=== PATIENT | male | born 1975 | race Caucasian/White ===

== ENCOUNTER 2020-01-03 13:33 | Outpatient (REF) | payer MEDICARE, MEDICAID, SELFPAY ==
[2020-01-03 14:43] LABS: Alanine Aminotransferase 18 U/L (0-40); Albumin Level 4.1 g/dL (3.5-5.0); Alkaline Phosphatase 85 U/L (39-117); Aspartate Amino Transferase 19 U/L (5-37); Bilirubin Direct 0.3 mg/dL (0.0-0.5); Bilirubin Total 0.6 mg/dL (0.0-1.0); Total Protein 7.5 g/dL (6.5-8.0)
[2020-01-04 11:20] LABS: Hepatitis A Antibody IgG Nonreactive (Nonreactive); Hepatitis A Antibody IgM 0.31 Index (0-0.79); ~Hepatitis A Antibody IgG 0.69 S/CO (0.00-0.99); ~Hepatitis A Antibody IgM Nonreactive (Nonreactive)
[2020-01-04 11:30] LABS: HBS Num1 0.93 mIU/mL (0-7.99); HBc Num1 0.12 S/CO (0.00-0.79); HBsAGNum1 0.14 S/CO (0.00-0.99); HIV AB/AG Nonreactive (Nonreactive); HIV Num 1 0.05 S/CO (0.00-0.99); Hepatitis B Core Antibody Nonreactive (Nonreactive); Hepatitis B Surface Antigen Negative (Negative); ~Hepatitis B Surface Antibody NONREACTIVE (Nonreactive)
[2020-01-04 11:37] LABS: ~HepC Num1 0.15 S/CO (0.00-0.79); ~Hepatitis C Antibody Nonreactive (Nonreactive)
== END 2020-01-03 13:34 | disposition home or self-care (01) ==
LOC: HO.LAB 13:33
PROVIDERS: PCP Internal Medicine; Visit Provider Nurse Practitioner Psychiatric/Mental Health
DX: F11.20 Opioid dependence, uncomplicated (principal); Z01.84 Encounter for antibody response examination
CPT/HCPCS: 36415; 80076; 86481; 86704; 86706; 86708; 86709; 86803; 87340; 87389; 99213

== ENCOUNTER → 2020-01-10 13:09 | Outpatient (BNVA) | payer MEDICARE, MEDICAID, SELFPAY | PROVIDERS: PCP Internal Medicine; Referring Provider Internal Medicine; Visit Provider Nurse Practitioner Psychiatric/Mental Health | DX: F11.20 Opioid dependence, uncomplicated (principal); Z51.81 Encounter for therapeutic drug level monitoring | CPT/HCPCS: 80305; 99213 ==

== ENCOUNTER 2020-01-19 18:51 | Emergency (ER) | payer MEDICARE, MEDICAID, SELFPAY ==
[2020-01-19 19:01] VITALS: BP 121/88; PULSE 78; RESP 20; TEMP 36.9; O2SAT 97
[2020-01-19 19:07] VITALS: BP 120/84; BP 121/88; PULSE 75; PULSE 84; RESP 20; TEMP 36.9; O2SAT 97; O2SAT 98; BMI 21.7
--- NOTE | 2020-01-19 19:32 | CT_ITS ---
EXAMINATION: CT HEAD WITHOUT CONTRAST CT CERVICAL SPINE WITHOUT CONTRAST CLINICAL INFORMATION: EtOH. Fall. Head trauma. COMPARISON: CT head 04/19/2017. Brain MRI of 04/19/2017. Cervical spine x-rays of 09/22/2015. TECHNIQUE: Multidetector volumetric CT imaging of the head and cervical spine is acquired without intravenous contrast administration. Postprocessing is performed at a dedicated workstation. Multiplanar reformatted images are submitted. As per technologist's notes patient was unable to hold still. This CT scan was performed using dose optimization techniques as appropriate to a performed exam including the following: *Automated exposure control. *Adjustment of mA and/or kV according to patient size (this includes techniques or standardized protocols for targeted exams were dose is matched to indication/reason for exam; i.e. extremities or head). *Use of iterative reconstruction technique . DLP: 941 mGy-cm (CT head), 247 mGy-cm (CT cervical spine). FINDINGS: CT HEAD: Multiple images are degraded by artifacts limiting the evaluation in the region. There is no evidence of acute intracranial hemorrhage, midline shift or mass effect on the non-degraded images. No evidence of abnormal extra-axial fluid collection. Ventricles and cortical sulci are age-appropriate. No definite abnormal parenchymal attenuation is noted. The osseous calvarium appears intact. Visualized paranasal sinuses and mastoid air cells are well aerated. CERVICAL SPINE: The vertebral body heights and alignment are maintained. Atlantoaxial and atlantooccipital alignments are normal. The posterior elements are intact and in normal alignment. There is moderate disc space narrowing at C5-C6 and C6-C7 with small marginal endplate osteophytes. No evidence of prevertebral soft tissue swelling. Airways patent. Thyroid gland is unremarkable. Mild changes of centrilobular and paraseptal emphysema are noted in the lung apices. IMPRESSION: CT HEAD: Multiple images are degraded by significant motion artifacts. There is no evidence of acute intracranial abnormality on the images without motion artifacts. As clinically deemed necessary, repeat head CT may be considered once patient is able to cooperate. CT CERVICAL SPINE: No evidence of acute fracture or dislocation. Mild cervical spondylosis at C5-C6 and C6-C7, increased compared to previous x-ray of 2016.
[2020-01-19 20:00] VITALS: RESP 15; O2SAT 95
--- NOTE | 2020-01-19 21:00 | ED_ITS ---
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 Denies other drug use. Reports unaware if he fell, but appears that he did. Denies SI/HI. Denies headache, neck pain, back pain, CP/SOB, abdominal pain, nausea /vomiting <FABIAN Fall Last Filed: 01/20/20 00:39> MD complaint: alcohol intoxication, alcohol dependence and medical clearance for detox facility <FABIAN Fall Last Filed: 01/20/20 00:39> Related Data Home Medications: Home Medications Medication Instructions Recorded Confirmed dextroamphetamine-amphetamine 20 20 mg PO BID 12/29/19 01/19/20 mg tablet gabapentin 600 mg tablet 600 mg PO TID 12/29/19 01/19/20 venlafaxine 150 mg 150 mg PO DAILY 12/29/19 01/19/20 capsule,extended release 24 hr Previous Rx's Medication Instructions Recorded buprenorphine 4 mg-naloxone 1 mg 2 film SUBLINGUAL DAILY #12 ea 01/10/20 sublingual film <FABIAN Fall Last Filed: 01/20/20 00:39> Allergies/Adverse Reactions: Allergies Allergy/AdvReac Type Severity Reaction Status Date / Time No Known Allergies Allergy Verified 01/10/20 13:53 <FABIAN Fall Last Filed: 01/20/20 00:39> Review of Systems Review of Systems: Constitutional: No Fever, No Chills, Cardiovascular: No Chest Pain, No SOB Respiratory: No Cough Gastrointestinal: No Nausea, No Vomiting, No Diarrhea, No Abdominal pain Musculoskeletal: No joint pain, No Myalgias, No Joint Swelling Skin: + forehead abrasion Psych: No SI/HI <FABIAN Fall - Last Filed: 01/20/20 00:39> [facility], [facility] Past Medical History Attestation statement: The following information was validated with the patient. <FABIAN Fall - Last Filed: 01/20/20 00:39> Source: old records reviewed and nursing notes reviewed <FABIAN Fall - Last Filed: 01/20/20 00:39> Medical History: Medical History (Updated 01/19/20 @ 23:25 by FABIAN Fall) Diabetes Multiple sclerosis <FABIAN Fall - Last Filed: 01/20/20 00:39> Social History Social History: Social History Smoking Status: Unknown if ever smoked Use of substances other than those prescribed or required for medical reasons: Yes Substance Use Type: Unknown Substance Use Frequency: Occasionally Advance Directives: No Advance Directives Information Provided: Yes <FABIAN Fall - Last Filed: 01/20/20 00:39> Physical Exam Vital Signs: Vital Signs: Vital Signs Temp Pulse Resp BP Pulse Ox 01/20/20 03:11 98.0 F 74 18 102/65 01/20/20 02:15 98.6 F 60 15 120/62 96 01/20/20 00:00 15 01/19/20 22:00 14 01/19/20 20:00 15 95 01/19/20 19:07 98.5 F 75 20 121/88 97 01/19/20 19:01 98.5 F 78 20 121/88 97 Body Mass Index 21.7 <FABIAN Fall - Last Filed: 01/20/20 00:39> Vital Signs: Vital Signs Temp Pulse Resp BP Pulse Ox 01/20/20 03:11 98.0 F 74 18 102/65 01/20/20 02:15 98.6 F 60 15 120/62 96 01/20/20 00:00 15 01/19/20 22:00 14 01/19/20 20:00 15 95 01/19/20 19:07 98.5 F 75 20 121/88 97 01/19/20 19:01 98.5 F 78 20 121/88 97 Body Mass Index 21.7 <Halima Castano MD - Last Filed: 01/20/20 03:16> Const: Other: ETOH odor on breath, alert to voice <FABIAN Fall - Last Filed: 01/20/20 00:39> HENMT: Other: abrasion noted to left forehead <FABIAN Fall - Last Filed: 01/20/20 00:39> Ears: hearing grossly normal bilaterally <FABIAN Fall - Last Filed: 01/20/20 00:39> General nose exam: Normal external nose present <Antonietta Gupta SC - Last Filed: 01/20/20 00:39> Face and sinus: No crepitus <FABIAN Fall - Last Filed: 01/20/20 00:39> Mouth: Normal oral and palatal mucosa present <FABIAN Fall - Last Filed: 01/20/20 00:39> Throat: Yes uvula midline <FABIAN Fall - Last Filed: 01/20/20 00:39> Eyes: General: appearance normal, both eyes and all related structures <FABIAN Fall - Last Filed: 01/20/20 00:39> Pupils: Equal, round and reactive pupils present <FABIAN Fall - Last Filed: 01/20/20 00:39> EOM: EOMs intact bilaterally <FABIAN Fall - Last Filed: 01/20/20 00:39> Neck: Other: no midline cervical spinous tenderness <FABIAN Fall - Last Filed: 01/20/20 00:39> Neck: Yes normal visual inspection <FABIAN Fall - Last Filed: 01/20/20 00:39> Resp: Effort & Inspection: normal respiratory effort <FABIAN Fall - Last Filed: 01/20/20 00:39> Cardio: Rate: regular rate <FABIAN Fall - Last Filed: 01/20/20 00:39> GI: Inspection: Yes normal to inspection <FABIAN Fall - Last Filed: 01/20/20 00:39> Palpation (GI): Soft to palpation, nontender, no guarding and not rigid <FABIAN Fall - Last Filed: 01/20/20 00:39> Back/Spine/Pelvis: Other: CHAUDHARI <FABIAN Fall - Last Filed: 01/20/20 00:39> Neuro: General: tone normal and moves all extremities <FABIAN Fall Last Filed: 01/20/20 00:39> Cranial nerves: Yes Equal, round and reactive pupils present <FABIAN Fall Last Filed: 01/20/20 00:39> Gait exam (Neuro): Normal gait present <FABIAN Fall Last Filed: 01/20/20 00:39> Extrem: General: Yes normal to inspection <FABIAN Fall Last Filed: 01/20/20 00:39> Course Course Course Narrative: -2324-- head CT without evidence of acute intracranial abnormality on the images without motion artifact. CT C-spine without evidence of acute fracture or dislocation patient has been sleeping comfortably in the ED. Cooperative. Alert to voice -0200-- ED care transferred to Dr. 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 On exam VSS, intoxicated, CHAUDHARI, abrasion noted to left forehead. Concern for ICH/subdural vs fracture. No evidence of alcohol withdrawal at this time Plan: Head/ C-spine CT, observe and reassess for clinical sobriety <FABIAN Fall Last Filed: 01/20/20 00:39> Discharge Plan Discharge Clinical Impression: Fall Alcohol intoxication Qualifiers: Complication of substance-induced condition: uncomplicated Qualified Code(s): F 10.920 - Alcohol use, unspecified with intoxication, uncomplicated <FABIAN Fall Last Filed: 01/20/20 00:39> Patient Disposition: Home, Self-Care <FABIAN Fall Last Filed: 01/20/20 00:39> Instructions: Abuse of Alcohol (ED) <FABIAN Fall Last Filed: 01/20/20 00:39> Additional Instructions: do not drink alcohol or take drugs it can not kill you follow-up with your doctor Stay hydrated at home If you have headache, persistent nausea / vomiting, or weakness return to the ED <FABIAN Fall - Last Filed: 01/20/20 00:39> Prescriptions: No Action buprenorphine-naloxone [Suboxone] 4-1 mg film 2 film sublingual DAILY Qty: 12 RF: 0 venlafaxine [Effexor XR] 150 mg capsule,extended release 24hr 150 mg PO DAILY RF: 0 gabapentin 600 mg tablet 600 mg PO TID RF: 0 dextroamphetamine-amphetamine [Adderall] 20 mg tablet 20 mg PO BID RF: 0 <FABIAN Fall - Last Filed: 01/20/20 00:39> Referrals: Physician,Unknown [Primary Care Provider] - 2 days ( your primary care doctor) <FABIAN Fall - Last Filed: 01/20/20 00:39>
[2020-01-19 22:00] VITALS: RESP 14
[2020-01-20] VITALS: RESP 15
[2020-01-20 02:15] VITALS: BP 120/62; PULSE 60; RESP 15; TEMP 37; O2SAT 96
[2020-01-20 03:11] VITALS: BP 102/65; PULSE 74; RESP 18; TEMP 36.7
== END 2020-01-20 03:37 | disposition home or self-care (01) ==
PROVIDERS: Emergency Provider Emergency Medicine
DX: F10.120 Alcohol abuse with intoxication, uncomplicated (principal); Y90.9 Presence of alcohol in blood, level not specified; S00.81XA Abrasion of other part of head, initial encounter; W19.XXXA Unspecified fall, initial encounter; E11.9 Type 2 diabetes mellitus without complications; G35 Multiple sclerosis; Y93.9 Activity, unspecified; Y92.9 Unspecified place or not applicable; Y99.9 Unspecified external cause status; Z79.899 Other long term (current) drug therapy
CPT/HCPCS: 70450; 72125; 99284

== ENCOUNTER → 2020-01-21 13:32 | Outpatient (BNVA) | payer MEDICARE, MEDICAID, SELFPAY | PROVIDERS: Visit Provider Nurse Practitioner Psychiatric/Mental Health | DX: F11.99 Opioid use, unspecified with unspecified opioid-induced disorder (principal); Z79.899 Other long term (current) drug therapy | CPT/HCPCS: 80305; 99211 ==

== ENCOUNTER → 2020-01-29 09:57 | Outpatient (BNVA) | payer MEDICARE, MEDICAID, SELFPAY | PROVIDERS: PCP Internal Medicine; Visit Provider Internal Medicine | DX: F11.20 Opioid dependence, uncomplicated (principal) | CPT/HCPCS: 80305; 99212 ==

== ENCOUNTER 2020-02-14 13:01 | Outpatient (REF) | payer MEDICARE, MEDICAID, SELFPAY ==
[2020-02-18 19:11] LABS: Buprenorphine 7 ng/mL; Norbuprenorphine 45 ng/mL
== END 2020-02-14 13:02 | disposition home or self-care (01) ==
LOC: HO.LNP 13:01
PROVIDERS: Visit Provider Internal Medicine
DX: F11.20 Opioid dependence, uncomplicated (principal)
CPT/HCPCS: 80305; 80348; 99212

== ENCOUNTER → 2020-02-18 15:05 | Outpatient (BNVA) | payer MEDICARE, MEDICAID, SELFPAY | PROVIDERS: Visit Provider Nurse Practitioner Psychiatric/Mental Health | DX: F11.20 Opioid dependence, uncomplicated (principal) | CPT/HCPCS: 80305; 99212 ==

== ENCOUNTER 2020-03-03 15:16 | Outpatient (REF) | payer MEDICARE, MEDICAID, SELFPAY ==
[2020-03-06 16:42] LABS: Buprenorphine 160 ng/mL; Norbuprenorphine >1000 ng/mL
== END 2020-03-03 15:17 | disposition home or self-care (01) ==
LOC: HO.LNP 15:16
PROVIDERS: Visit Provider Internal Medicine
DX: F11.99 Opioid use, unspecified with unspecified opioid-induced disorder (principal)
CPT/HCPCS: 80305; 80348; 99211

== ENCOUNTER → 2020-03-17 14:49 | Outpatient (BNVA) | payer MEDICARE, MEDICAID, SELFPAY | PROVIDERS: Visit Provider Internal Medicine | DX: Z13.89 Encounter for screening for other disorder (principal) | CPT/HCPCS: Q3014 ==

== ENCOUNTER 2020-03-30 13:18 | Emergency (ER) | payer MEDICARE, MEDICAID, SELFPAY ==
[2020-03-30 13:29] VITALS: BP 122/82; PULSE 86; RESP 16; TEMP 37; O2SAT 98; BMI 19.1
--- NOTE | 2020-03-30 13:42 | ED.PSYCH ---
HPI - Psych General Chief Complaint: Psychiatric Symptoms Stated Complaint: section 12 Time Seen by Provider: 03/30/20 13:36 Source: patient and EMS Mode of arrival: EMS Limitations: no limitations and altered mental status (intoxicated) History of Present Illness HPI Narrative: 44 y/o male with history of diabetes, MS, opioid use disorder on Suboxone who presents via EMS after he called 911 for seeing demons in my house. He states he was drinking beer and smoking marijuana with his roommates and all of the sudden he saw a big black bird head with a lot of black feathers flying around behind his friends. He freaked out and called 911. Denies history of hallucinations in the past, denies other drug use today. Has been taking his medications as prescribed. Related Data Home Medications Medication Instructions Recorded Confirmed dextroamphetamine-amphetamine 20 20 mg PO BID 12/29/19 03/03/20 mg tablet gabapentin 600 mg tablet 600 mg PO TID 12/29/19 03/03/20 venlafaxine 150 mg 150 mg PO DAILY 12/29/19 03/03/20 capsule,extended release 24 hr Previous Rx's Medication Instructions Recorded hepatitis A virus vaccine (PF) 1 ml IM ONCE #1 ml 01/29/20 1,440 FRANKLIN unit/mL IM suspension hepatitis B virus vacc.rec(PF) 20 1 ml IM ONCE 30 Days #1 ml 01/29/20 mcg/mL intramuscular syringe buprenorphine 4 mg-naloxone 1 mg 2 film SUBLINGUAL DAILY 14 Days 03/17/20 sublingual film #28 ea Allergies Allergy/AdvReac Type Severity Reaction Status Date / Time No Known Allergies Allergy Verified 01/10/20 13:53 Review of Systems Review of Systems: Yes Unobtainable due to mental condition (intoxicated, speaking non-sensically ) [facility] Past Medical History Attestation statement: The following information was validated with the patient. Medical History Diabetes Multiple sclerosis Opioid use disorder Social History Social History Alcohol intake: current Alcohol intake frequency: 3 or more drinks per day Alcohol type: beer Smoking Status: Current every day smoker Use of substances other than those prescribed or required for medical reasons: No Substance Use Type: Marijuana Advance Directives: No Advance Directives Information Provided: No Physical Exam Vital Signs: Vital Signs: Last Vital Signs Temp 98.6 F 03/30/20 13:29 Pulse 86 03/30/20 13:29 Resp 20 03/30/20 14:56 BP 122/82 03/30/20 13:29 Pulse Ox 98 03/30/20 13:29 Body Mass Index 19.1 Appearance: Alert. Restless, anxious Oriented X3. Talking to himself in bed. Eyes: Pupils equal, round and reactive to light. ENT: Pharynx normal. Dry mucus membranes Neck: Normal inspection. Neck supple. CVS: Normal heart rate and rhythm. Pulses normal. Respiratory: No respiratory distress. Breath sounds normal. Abdomen: Soft and nontender. +BS x4 Skin: Skin warm and dry. Normal skin color. Normal skin turgor. No rashes. Extremities: No lower extremity edema. Neuro/psych: Oriented X 3. Moves all extremities spontaneously, follows commands, speaking quickly, non-sensically, flight of ideas and loose assocaitions Course Course Course Narrative: 44 y/o male with history of anxiety/depression, MS, DM and opiod use disorder presenting after seeing demons in his house. Visibly anxious and intoxicated. Lab workup and utox ordered. Patient is redirectable. Reevaluation(s) Reevaluation #1: ETOH level 214 Tox screen + THC and amphetamines (prescribed). Other labs are unremarkable aside from baseline anemia and mild isolated elevation in AST. continues to talk to himself in bed. Awaiting [facility] evaluation. MDM - Psych Medical Records Attestation: I reviewed the patient's medical records. Lab Data Result diagrams: 03/30/20 14:51 03/30/20 14:50 Labs: Lab Results 03/30/20 03/30/20 03/30/20 Range/Units 14:50 14:51 14:51 WBC 6.9 (4.8-10.8) X10*3/uL RBC 4.03 L (4.60-5.80) X10*6/uL Hgb 13.1 L (14.0-18.0) g/dl Hct 39.5 L (42-52) % MCV 98.0 (80-98) fL MCH 32.5 (27.0-33.0) pg MCHC 33.2 (31.0-36.0) g/dl RDW 12.5 (11.0-16.0) % Plt Count 240 (160-400) X10*3/uL MPV 11.2 (9.4-12.4) fL Immature Gran % (Auto) 0.1 (0.0-0.4) % Neut % (Auto) 64.3 (45-73) % Lymph % (Auto) 23.3 (20-40) % [place] % (Auto) 6.5 (2-11) % Eos % (Auto) 5.4 H (0-4) % Baso % (Auto) 0.4 (0-2) % Lymph # (Auto) 1.6 (1.2-4.9) X10*3/uL [place] # (Auto) 0.5 (0.1-1.2) X10*3/uL Eos # (Auto) 0.4 (0.0-0.4) X10*3/uL Baso # (Auto) 0.0 (0.0-0.2) X10*3/uL Abs Immat Gran (auto) 0.01 (0.00-0.03) X10*3/uL Absolute Neuts (auto) 4.4 (2.0-8.3) X10*3/uL Absolute Nucleated RBC 0.000 (0.0-0.012) X10*3/uL Nucleated RBC % (auto) 0.0 (0.0-0.2) /100WBC Sodium 144 (135-145) mmol/L Potassium 4.4 (3.3-5.1) mmol/l Chloride 110 H (96-108) mmol/L Carbon Dioxide 26 (22-29) mmol/L Anion Gap 12 (12-20) BUN 14 (9-16) mg/dL Creatinine 0.85 (0.5-1.4) mg/dL Estim Creat Clear Calc 83.2 Estimated GFR > 60 Random Glucose 95 (60-115) mg/dL Calcium 9.2 (8.4-10.2) mg/dL Total Bilirubin 0.4 (0.0-1.0) mg/dL Direct Bilirubin 0.2 (0.0-0.5) mg/dL AST 39 H D (5-37) U/L ALT 32 (0-40) U/L Alkaline Phosphatase 75 (39-117) U/L Total Protein 7.6 (6.5-8.0) g/dL Albumin 4.2 (3.5-5.0) g/dL Urine Color Urine Appearance Urine pH (5.0-8.0) Ur Specific [place] (1.005-1.025) Urine Protein (NEG-TRACE) MG/DL Urine Glucose (UA) (NEG) MG/DL Urine Ketones (NEG) MG/DL Urine Blood (NEG) Urine Nitrite (NEG) Ur Leukocyte Esterase (NEG) Urine RBC (0) /HPF Urine WBC (0-4) /HPF Ur Squamous Epith Cells /LPF Urine Bacteria /LPF Salicylates < 5.0 L (15-30) mg/dL Urine Opiates Screen (Not Detect) Acetaminophen < 1 (<30) mcg/mL Ur Barbiturates Screen (Not Detect) Ur Phencyclidine Scrn (Not Detect) Ur Amphetamines Screen (Not Detect) U Benzodiazepines Scrn (Not Detect) Urine Cocaine Screen (Not Detect) U Marijuana (THC) Screen (Not Detect) Ethyl Alcohol 214 mg/dL 03/30/20 03/30/20 Range/Units 15:42 15:42 WBC (4.8-10.8) X10*3/uL RBC (4.60-5.80) X10*6/uL Hgb (14.0-18.0) g/dl Hct (42-52) % MCV (80-98) fL MCH (27.0-33.0) pg MCHC (31.0-36.0) g/dl RDW (11.0-16.0) % Plt Count (160-400) X10*3/uL MPV (9.4-12.4) fL Immature Gran % (Auto) (0.0-0.4) % Neut % (Auto) (45-73) % Lymph % (Auto) (20-40) % [place] % (Auto) (2-11) % Eos % (Auto) (0-4) % Baso % (Auto) (0-2) % Lymph # (Auto) (1.2-4.9) X10*3/uL [place] # (Auto) (0.1-1.2) X10*3/uL Eos # (Auto) (0.0-0.4) X10*3/uL Baso # (Auto) (0.0-0.2) X10*3/uL Abs Immat Gran (auto) (0.00-0.03) X10*3/uL Absolute Neuts (auto) (2.0-8.3) X10*3/uL Absolute Nucleated RBC (0.0-0.012) X10*3/uL Nucleated RBC % (auto) (0.0-0.2) /100WBC Sodium (135-145) mmol/L Potassium (3.3-5.1) mmol/l Chloride (96-108) mmol/L Carbon Dioxide (22-29) mmol/L Anion Gap (12-20) BUN (9-16) mg/dL Creatinine (0.5-1.4) mg/dL Estim Creat Clear Calc Estimated GFR Random Glucose (60-115) mg/dL Calcium (8.4-10.2) mg/dL Total Bilirubin (0.0-1.0) mg/dL Direct Bilirubin (0.0-0.5) mg/dL AST (5-37) U/L ALT (0-40) U/L Alkaline Phosphatase (39-117) U/L Total Protein (6.5-8.0) g/dL Albumin (3.5-5.0) g/dL Urine Color YELLOW Urine Appearance CLEAR Urine pH 6.5 (5.0-8.0) Ur Specific [place] 1.010 (1.005-1.025) Urine Protein NEG (NEG-TRACE) MG/DL Urine Glucose (UA) NEG (NEG) MG/DL Urine Ketones NEG (NEG) MG/DL Urine Blood TRACE (NEG) Urine Nitrite NEG (NEG) Ur Leukocyte Esterase NEG (NEG) Urine RBC 0-2 (0) /HPF Urine WBC 0 (0-4) /HPF Ur Squamous Epith Cells NONE /LPF Urine Bacteria NONE /LPF Salicylates (15-30) mg/dL Urine Opiates Screen Not Detected (Not Detect) Acetaminophen (<30) mcg/mL Ur Barbiturates Screen Not Detected (Not Detect) Ur Phencyclidine Scrn Not Detected (Not Detect) Ur Amphetamines Screen POSITIVE H (Not Detect) U Benzodiazepines Scrn Not Detected (Not Detect) Urine Cocaine Screen Not Detected (Not Detect) U Marijuana (THC) Screen POSITIVE H (Not Detect) Ethyl Alcohol mg/dL Discharge Plan Discharge Clinical Impression: Alcohol intoxication Qualifiers: Complication of substance-induced condition: with delirium Qualified Code(s): F10.921 - Alcohol use, unspecified with intoxication delirium Prescriptions: No Action buprenorphine-naloxone [Suboxone] 4-1 mg film 2 film sublingual DAILY 14 Days Qty: 28 RF: 0 venlafaxine [Effexor XR] 150 mg capsule,extended release 24hr 150 mg PO DAILY RF: 0 gabapentin 600 mg tablet 600 mg PO TID RF: 0 dextroamphetamine-amphetamine [Adderall] 20 mg tablet 20 mg PO BID RF: 0 hepatitis A virus vaccine (PF) 1,440 FRANKLIN unit/mL suspension 1 ml IM ONCE Qty: 1 RF: 1 hepatitis B virus vacc.rec(PF) 20 mcg/mL syringe 1 ml IM ONCE 30 Days Qty: 1 RF: 2
[2020-03-30 14:56] VITALS: RESP 20
[2020-03-30 14:58] LABS: Basophils Percent Auto 0.4 % (0-2); Eosinophils Absolute Auto 0.4 X10*3/uL (0.0-0.4); Eosinophils Percent Auto 5.4 % (0-4); Hematocrit 39.5 % (42-52); Hemoglobin 13.1 g/dl (14.0-18.0); Imm Gran Abs Auto 0.01 X10*3/uL (0.00-0.03); Imm Gran Pct Auto 0.1 % (0.0-0.4); Lymphocytes Absolute Auto 1.6 X10*3/uL (1.2-4.9); Lymphocytes Percent Auto 23.3 % (20-40); Mean Corpuscular HGB Conc 33.2 g/dl (31.0-36.0); Mean Corpuscular Hemoglobin 32.5 pg (27.0-33.0); Mean Platelet Volume 11.2 fL (9.4-12.4); Monocytes Absolute Auto 0.5 X10*3/uL (0.1-1.2); Monocytes Percent Auto 6.5 % (2-11); Neutrophils Absolute Auto 4.4 X10*3/uL (2.0-8.3); Neutrophils Percent Auto 64.3 % (45-73); Platelet Count 240 X10*3/uL (160-400); Red Blood Count 4.03 X10*6/uL (4.60-5.80); Red Cell Distribution Width 12.5 % (11.0-16.0); White Blood Count 6.9 X10*3/uL (4.8-10.8)
[2020-03-30 14:59] LABS: MANUAL DIFF FLAG NO
[2020-03-30 15:24] LABS: Ethanol 214 mg/dL
[2020-03-30 15:24] LABS: Acetaminophen LAB < 1 mcg/mL (<30); Alanine Aminotransferase 32 U/L (0-40); Albumin Level 4.2 g/dL (3.5-5.0); Alkaline Phosphatase 75 U/L (39-117); Anion Gap 12 (12-20); Aspartate Amino Transferase 39 U/L (5-37); Bilirubin Direct 0.2 mg/dL (0.0-0.5); Bilirubin Total 0.4 mg/dL (0.0-1.0); Blood Urea Nitrogen 14 mg/dL (9-16); Calcium 9.2 mg/dL (8.4-10.2); Carbon Dioxide 26 mmol/L (22-29); Chloride 110 mmol/L (96-108); Creatinine Clr Calc Pharmacy 83.2; Estimated Glomerular Filt Rate > 60; Glucose Random 95 mg/dL (60-115); Potassium 4.4 mmol/l (3.3-5.1); Salicylate < 5.0 mg/dL (15-30); Sodium 144 mmol/L (135-145); Total Protein 7.6 g/dL (6.5-8.0)
[2020-03-30 15:51] LABS: Glucose Urine UA NEG (NEG); Leukocyte Esterase Urine NEG (NEG); Nitrite Urine NEG (NEG); PH 6.5 (5.0-8.0); Urine Blood TRACE (NEG); Urine Ketones NEG (NEG); Urine Protein NEG (NEG-TRACE)
[2020-03-30 15:53] LABS: Appearance Urine CLEAR; Color Urine YELLOW
[2020-03-30 16:09] LABS: Amphetamine Screen Urine POSITIVE (Not Detect); Barbiturates, Urine Not Detected (Not Detect); Benzodiazepines Screen Urine Not Detected (Not Detect); Cannabinoid Screen Urine POSITIVE (Not Detect); Cocaine Screen Urine Not Detected (Not Detect); Opiate Screen Urine Not Detected (Not Detect); Phencyclidine Screen Urine Not Detected (Not Detect)
--- NOTE | 2020-03-30 16:17 | PC.NURSE ---
Pt fed sandwiches and crackers. Currently sleeping.
[2020-03-30 16:21] LABS: RBC Urine 0-2 /HPF (0); WBC Urine 0 /HPF (0-4)
[2020-03-30 17:32] VITALS: RESP 20; O2SAT 98
--- NOTE | 2020-03-30 17:44 | PC.NURSE ---
ED transfer summary faxed to [facility]. Case also discussed with Yi from the care team.
--- NOTE | 2020-03-30 17:48 | PC.NURSE ---
Yi, from the care team seeing pt.
--- NOTE | 2020-03-30 18:38 | MHC.CARE ---
[facility] faxed and called to confirm receipt, per Eve (transportation supervisor) a clinician will not be available until after 11pm. When CARE team is available to evaluate pt, if N has not arrived to do so, pt will be seen by CARE team.
--- NOTE | 2020-03-30 18:59 | PC.NURSE ---
Per willi from case management N will see pt tonight around 11pm.
--- NOTE | 2020-03-30 22:41 | PC.NURSE ---
Notes 1899: report taken from bernie. patient reporting visual hallucinations of demons. Pt up out of bed with steady gait. 2099: pt ambualted to bathroom with steady gait. confirmed with n that patient will be seen after 2299. 2300:resting at this time skin p/w/d. airway patent.
--- NOTE | 2020-03-30 23:13 | PC.NURSE ---
REPORT FROM ENOC MCKENZIE, PATIENT RESTING ON STRETCHER WITH NO DISTRESS NOTED. AWAITING FOR [facility] ARRIVAL FOR EVALUATION.
[2020-03-31] VITALS: PULSE 85; RESP 16; O2SAT 97
[2020-03-31 01:41] VITALS: BP 96/59; PULSE 60; RESP 18; TEMP 36.2; O2SAT 97
[2020-03-31] MEDS: Buprenorphine/Naloxone 4/1 mg FILM 1 FILM SUBLINGUAL (01:55)
--- NOTE | 2020-03-31 01:59 | PC.NURSE ---
AFTER MEETING WITH [facility] WORKERS, PLAN OF CARE FOR PATIENT IS TO BE DISCHARGED IN THE MORNING TO THE LIVING ROOM, [facility] WILL CALL WITH THE CAB TIME. PATIENT WOKEN UP TO BE MEDICATED WITH SUBOXONE THAT HE REQUESTED FOR DETOX SYMPTOMS. PATIENT IS CALM AND COOPERATIVE ON THE STRETCHER. NO DISTRESS NOTED.
[2020-03-31 04:00] VITALS: RESP 16
[2020-03-31 06:00] VITALS: RESP 14
--- NOTE | 2020-03-31 06:24 | PC.NURSE ---
patient woken up for covid swab for the living room. patient refused then stated that he is refusing to go to the living room. I will just take the cab to a friends house stated thats not how transportation from [facility] works. i will just walk when can I leave . call placed to [facility] asking about patient requesting discharge home instead of the living room. spoke with mindy. patient okayed to be discharged home.
== END 2020-03-31 06:55 | disposition home or self-care (01) ==
PROVIDERS: Physician Assistant; Emergency Provider Emergency Medicine Emergency Medical Services
DX: F10.921 Alcohol use, unspecified with intoxication delirium (principal); Y90.7 Blood alcohol level of 200-239 mg/100 ml; F41.9 Anxiety disorder, unspecified; F33.1 Major depressive disorder, recurrent, moderate; F12.90 Cannabis use, unspecified, uncomplicated; F17.200 Nicotine dependence, unspecified, uncomplicated; F11.10 Opioid abuse, uncomplicated; Z71.6 Tobacco abuse counseling; Z79.899 Other long term (current) drug therapy
CPT/HCPCS: 36415; 80048; 80076; 80307; 80320; 81001; 85025; 99285; G0480; J0573

== ENCOUNTER 2020-03-31 10:49 | Emergency (ER) | payer MEDICARE, MEDICAID, SELFPAY ==
[2020-03-31 11:02] VITALS: BP 127/84; BP 130/90; PULSE 74; RESP 16; TEMP 36.9; O2SAT 99; BMI 21.7
[2020-03-31 12:00] VITALS: BP 115/78; PULSE 75; RESP 16; O2SAT 97
--- NOTE | 2020-03-31 12:30 | ED.PSYCH ---
HPI - Psych General Chief Complaint: Psychiatric Symptoms Stated Complaint: SECTION 12 BY POLICE,SI/HI Time Seen by Provider: 03/31/20 12:30 Source: EMS Mode of arrival: EMS Limitations: no limitations History of Present Illness HPI Narrative: In review 44-year-old male well known to this facility for prior psychiatric visits with his history of diabetes, MS, substance abuse who was actually evaluated less than 12 hours ago in the emergency room for depression and suicidal ideation subsequent clear to be discharged to crisis facility the living room in [place] he apparently made SI statements and was section back to the emergency room. Denies any illicit drug use, any actions to harm himself. MD complaint: suicidal ideation and feels depressed Onset (ago): day(s) Relieving factors: none If self harm: admits thoughts of self harm Related Data Home Medications Medication Instructions Recorded Confirmed dextroamphetamine-amphetamine 20 20 mg PO BID 12/29/19 03/30/20 mg tablet gabapentin 600 mg tablet 600 mg PO TID 12/29/19 03/30/20 venlafaxine 150 mg 150 mg PO DAILY 12/29/19 03/30/20 capsule,extended release 24 hr Previous Rx's Medication Instructions Recorded hepatitis A virus vaccine (PF) 1 ml IM ONCE #1 ml 01/29/20 1,440 FRANKLIN unit/mL IM suspension hepatitis B virus vacc.rec(PF) 20 1 ml IM ONCE 30 Days #1 ml 01/29/20 mcg/mL intramuscular syringe buprenorphine 4 mg-naloxone 1 mg 2 film SUBLINGUAL DAILY 14 Days 03/17/20 sublingual film #28 ea Allergies Allergy/AdvReac Type Severity Reaction Status Date / Time No Known Allergies Allergy Verified 01/10/20 13:53 Review of Systems Review of Systems: Constitutional: No Weight loss, No Fever, No Chills, No Night Sweats, No Fatigue, No Malaise ENT/Mouth: No Hearing loss, No Ear Pain, No Nasal Congestion, No Sinus Pain, No Hoarseness, No sore throat, No Rhinorrhea, No Swallowing Difficulty Eyes: No Eye Pain, No Swelling, No Redness, No Foreign Body, No Discharge, No Vision Changes Cardiovascular: No Chest Pain, No SOB, No Dyspnea on Exertion, No Orthopnea, No Edema, No Palpitations Respiratory: No Cough, No Sputum, No Wheezing, No Smoke Exposure, No Dyspnea Gastrointestinal: No Nausea, No Vomiting, No Diarrhea, No Constipation, No abdominal Pain Genitourinary: no irregular bleeding, No Dysuria, No Urinary Frequency, No Hematuria, No Urinary Incontinence, No Urgency, No Flank Pain, No Urinary Flow Changes, No Hesitancy Musculoskeletal: No joint pain, No Myalgias, No Joint Swelling Skin: No Skin Lesions, No rash Neuro: No Weakness, No Numbness, No Paresthesias, No Loss of Consciousness, No Dizziness, No Headache Psych: As noted in HPI Heme/Lymph: No Bruising, No Bleeding,No Lymphadenopathy Endocrine: No Polyuria, No Polydipsia, No Temperature Intolerance Yes all other systems are reviewed and are negative [facility] Past Medical History Medical History Diabetes Multiple sclerosis Opioid use disorder Social History Social History Alcohol intake: current Alcohol intake frequency: 3 or more drinks per day Alcohol type: beer Smoking Status: Current every day smoker Use of substances other than those prescribed or required for medical reasons: Yes Substance Use Type: Marijuana Advance Directives: No Advance Directives Information Provided: Yes Physical Exam Vital Signs: Vital Signs: Last Vital Signs Temp 97 F 03/31/20 18:04 Pulse 69 03/31/20 18:04 Resp 20 03/31/20 18:04 BP 118/69 03/31/20 18:04 Pulse Ox 99 03/31/20 18:04 Body Mass Index 21.7 Reviewed Const: General: cooperative and healthy appearing; No acute distress or intoxicated appearing Nutritional Appearance: average body habitus Orientation/consciousness: patient oriented x3 HENMT: Head: Yes normal to inspection Ears: hearing grossly normal bilaterally Eyes: General: appearance normal, both eyes and all related structures Visual May: normal visual may by confrontation Neck: Neck: Yes normal visual inspection and No tender Thyroid: Thyroid normal Chest: Chest palpation & inspection: normal inspection of the chest Resp: Effort & Inspection: normal respiratory effort Auscultation: clear to auscultation bilaterally Cardio: Jugular venous distension: no JVD Rhythm: regular rhythm Heart sounds: S1 normal heart sound present and S2 normal heart sound present GI: Inspection: Yes normal to inspection Percussion: Yes normal to percussion Auscultation: normal bowel sounds : General: Yes no CVA tenderness Back/Spine/Pelvis: Back: no CVA tenderness Skin: General skin exam: no rashes or lesions noted Neuro: General: patient oriented x3 Extrem: General: Yes normal to inspection Course Course Course Narrative: 1215 In review 44-year-old male with history of depression, substance abuse, MS, diabetes rib presenting with suicidal ideation section by PD here. He was evaluated on previous shift for suicidal ideations clear to the living room returns on Section 12 per he had a full workup including CBC, comprehensive metabolic profile UA and U tox done less than 12 hours ago this was reviewed and within normal limits. Will defer on any further laboratory workup and obtain crisis evaluation. Reevaluation(s) Reevaluation #1: [id number] Has been resting comfortably ate lunch as well as dinner in no acute distress. At this time signed out to night team pending crisis evaluation and disposition. Discharge Plan Discharge Clinical Impression: Opioid use disorder, Depression Prescriptions: No Action buprenorphine-naloxone [Suboxone] 4-1 mg film 2 film sublingual DAILY 14 Days Qty: 28 RF: 0 venlafaxine [Effexor XR] 150 mg capsule,extended release 24hr 150 mg PO DAILY RF: 0 gabapentin 600 mg tablet 600 mg PO TID RF: 0 dextroamphetamine-amphetamine [Adderall] 20 mg tablet 20 mg PO BID RF: 0 hepatitis A virus vaccine (PF) 1,440 FRANKLIN unit/mL suspension 1 ml IM ONCE Qty: 1 RF: 1 hepatitis B virus vacc.rec(PF) 20 mcg/mL syringe 1 ml IM ONCE 30 Days Qty: 1 RF: 2
[2020-03-31 14:10] VITALS: BP 116/70; PULSE 69; RESP 16; O2SAT 98
[2020-03-31 18:04] VITALS: BP 118/69; PULSE 69; RESP 20; TEMP 36.1; O2SAT 99
--- NOTE | 2020-03-31 18:26 | PC.NURSE ---
BHN at bedside for evaluation
--- NOTE | 2020-03-31 19:36 | PC.NURSE ---
ASSUMED CARE OF PT. PT RESTING IN STETCHER SLEEPING, WAKES TO VERBAL STIMULI, RESPIRATIONS EASY, N/L. SKIN W/D. WILL CONTINUE TO MONITOR PT.
--- NOTE | 2020-03-31 19:40 | PC.NURSE ---
SITTER REMAINS WITH PT AT BEDSIDE FOR SAFETY.
--- NOTE | 2020-03-31 21:04 | PC.NURSE ---
pt remains calm and cooperative at this time.
--- NOTE | 2020-03-31 22:36 | PC.NURSE ---
PT REMAINS ALERT, RESPIRATIONS EASY, N/L. SKIN W/D. PT REMAINS CALM AND COOPERATIVE IN HALLWAY.
[2020-04-01] VITALS: BP 116/65; PULSE 66; RESP 16; O2SAT 99
--- NOTE | 2020-04-01 00:15 | PC.NURSE ---
PT IN NAD, RESPIRATIONS EASY N/L. SKIN W/D.
--- NOTE | 2020-04-01 03:39 | PC.NURSE ---
PT SLEEPING IN RECLINER CHAIR, WAKES TO VERBAL STIMULI, RESPIRATIONS EASY, N/L. SKIN W/D. PT AWAITING FOR FURTHER ORDERS.
--- NOTE | 2020-04-01 03:40 | PC.NURSE ---
PT SLEEPNG, WAKES TO VERBAL STIMULI, RESPIRATIONS EASY, N/L. AWAITING FOR FURTHER ORDERS AT THIS TIME. WILL CONTINUE TO MONITOR PT.
[2020-04-01 06:00] VITALS: BP 114/68; PULSE 84; RESP 16
[2020-04-01 07:48] VITALS: BP 129/75; PULSE 77; RESP 15; TEMP 37.2; O2SAT 99
[2020-04-01 16:29] VITALS: BP 113/70; PULSE 77; RESP 14; TEMP 36.8; O2SAT 100
[2020-04-01] MEDS: Nicotine 21 MG PATCH.TD24 TRANSDERMA (17:04)
--- NOTE | 2020-04-01 17:04 | PC.NURSE ---
MEDS NEED TO BE VERIFIED WITH DINO GARZA. GIVEN NICOTINE PATCH REQUESTED.
[2020-04-01 19:49] VITALS: BP 119/77; PULSE 75; RESP 18; TEMP 36.8; O2SAT 100
[2020-04-01] MEDS: Buprenorphine/Naloxone 4/1 mg FILM 1 FILM SUBLINGUAL (20:08)
[2020-04-01] MEDS: Acetaminophen 325 MG TABLET 650 MG PO (22:34)
[2020-04-01 23:49] VITALS: BP 113/73; PULSE 76; RESP 18; TEMP 36.7; O2SAT 97
[2020-04-02 03:37] LABS: COVID-19 Test Negative (Negative); IDNOW Serial# 9DD0AD1C
[2020-04-02 06:00] VITALS: BP 123/74; PULSE 65; RESP 16; TEMP 37.2; O2SAT 97
--- NOTE | 2020-04-02 07:19 | PC.NURSE ---
Patient awake and eating breakfast at this time. Offers no complaints. Calm and cooperative. Respirations regular and even. Skin PWD. Patient remains inpatient bed search at this time. Will continue to monitor.
--- NOTE | 2020-04-02 09:07 | PC.NURSE ---
Patient continues to sleep at this time. Respirations remain regular and even. Skin PWD. Will continue to monitor.
[2020-04-02] MEDS: Buprenorphine/Naloxone 4/1 mg FILM 1 FILM SUBLINGUAL ×2 (09:24→20:44)
--- NOTE | 2020-04-02 09:33 | PC.NURSE ---
Patient awake, reporting he had a good nights rest. Calm, cooperative, and appropriately interacting with staff. Medicated with suboxone. No complaints at this time. Will continue to monitor.
[2020-04-02 09:50] VITALS: BP 138/81; PULSE 67; RESP 18; TEMP 37.1; O2SAT 99
--- NOTE | 2020-04-02 11:21 | PC.NURSE ---
Report recieved. Pt currently using the bathroom. Calm, cooperative, no complaints at this time.
--- NOTE | 2020-04-02 13:26 | PC.NURSE ---
Pt currently resting in bed, no signs of distress, calm.
[2020-04-02] MEDS: Gabapentin 400 MG CAPSULE PO ×2 (15:33→20:44)
[2020-04-02 15:34] VITALS: BP 126/75; PULSE 71; RESP 20; TEMP 36.6; O2SAT 95
[2020-04-02] MEDS: Nicotine Polacrilex 2 MG GUM BUCCAL ×4 (16:12→23:22)
--- NOTE | 2020-04-02 18:37 | PC.NURSE ---
Pt currently resting in bed and watching TV, no complaints at this time, calm and cooperative.
--- NOTE | 2020-04-02 19:03 | PC.NURSE ---
Report received. PT is resting in bed quietly. Calm and cooperative. PT is inpatient bed search.
[2020-04-02] MEDS: Amphetamine Mixed Salts 20 MG TABLET PO (20:44)
[2020-04-02 21:44] VITALS: BP 144/71; PULSE 85; RESP 20; TEMP 36.6; O2SAT 97
[2020-04-02 23:49] VITALS: BP 130/87; PULSE 83; RESP 18; TEMP 37.2; O2SAT 97
[2020-04-03 04:54] VITALS: RESP 16
[2020-04-03 06:03] VITALS: BP 123/73; PULSE 86; RESP 18; TEMP 36.9; O2SAT 97
--- NOTE | 2020-04-03 06:55 | PC.NURSE ---
Report received. Pt currently resting, calm and cooperative. PT denies complaints. PT remains inpatient bedsearch.
[2020-04-03] MEDS: Nicotine Polacrilex 2 MG GUM BUCCAL (07:24)
[2020-04-03] MEDS: Gabapentin 400 MG CAPSULE PO (08:15)
[2020-04-03] MEDS: Amphetamine Mixed Salts 20 MG TABLET PO (08:16)
[2020-04-03] MEDS: Buprenorphine/Naloxone 4/1 mg FILM 1 FILM SUBLINGUAL (08:16)
[2020-04-03] MEDS: Venlafaxine HCL 25 MG TABLET 150 MG PO (09:04)
[2020-04-03 09:53] VITALS: BP 132/97; PULSE 89; RESP 16; TEMP 37.1; O2SAT 98
== END 2020-04-03 11:14 ==
PROVIDERS: Emergency Medicine; Emergency Provider Emergency Medicine Emergency Medical Services
DX: F33.1 Major depressive disorder, recurrent, moderate (principal); R45.851 Suicidal ideations; F11.10 Opioid abuse, uncomplicated; F12.90 Cannabis use, unspecified, uncomplicated; Z71.51 Drug abuse counseling and surveillance of drug abuser; F17.200 Nicotine dependence, unspecified, uncomplicated; Z20.828 Contact with and (suspected) exposure to other viral communicable diseases; Z71.6 Tobacco abuse counseling; Z79.899 Other long term (current) drug therapy
CPT/HCPCS: 87635; 99285; J0573

== ENCOUNTER → 2020-04-11 13:21 | Outpatient (BNVA) | payer MEDICARE, MEDICAID, SELFPAY | PROVIDERS: Visit Provider Internal Medicine | DX: Z76.89 Persons encountering health services in other specified circumstances (principal) ==

== ENCOUNTER → 2020-04-14 11:21 | Outpatient (BNVA) | payer MEDICARE, MEDICAID, SELFPAY | PROVIDERS: Visit Provider Internal Medicine | DX: F11.20 Opioid dependence, uncomplicated (principal); Z51.81 Encounter for therapeutic drug level monitoring | CPT/HCPCS: 80305; 99211 ==

== ENCOUNTER → 2020-04-21 14:53 | Outpatient (BNVA) | payer MEDICARE, MEDICAID, SELFPAY | PROVIDERS: Visit Provider Internal Medicine | DX: F11.20 Opioid dependence, uncomplicated (principal) | CPT/HCPCS: 80305; 99211 ==

== ENCOUNTER → 2020-04-29 14:03 | Outpatient (BNVA) | payer MEDICARE, MEDICAID, SELFPAY | PROVIDERS: PCP Internal Medicine; Visit Provider Internal Medicine | DX: F11.99 Opioid use, unspecified with unspecified opioid-induced disorder (principal); Z79.899 Other long term (current) drug therapy | CPT/HCPCS: 80305; 99212; Q3014 ==

== ENCOUNTER → 2020-05-06 14:27 | Outpatient (BNVA) | payer MEDICARE, MEDICAID, SELFPAY | PROVIDERS: PCP Internal Medicine; Visit Provider Internal Medicine | DX: F11.20 Opioid dependence, uncomplicated (principal) | CPT/HCPCS: 80305; 99211 ==

== ENCOUNTER 2020-08-08 06:16 | Emergency (ER) | payer MEDICARE, MEDICAID, SELFPAY ==
[2020-08-08 06:27] VITALS: BP 107/77; PULSE 66; RESP 16; TEMP 36.5; O2SAT 96; BMI 20.7
--- NOTE | 2020-08-08 06:38 | ED_ITS ---
HPI - Alcohol General Chief Complaint: ETOH/Substance Use Stated Complaint: Seeking detox Time Seen by Provider: 08/08/20 06:33 Source: patient Mode of arrival: ambulatory Limitations: no limitations History of Present Illness HPI narrative: wants detox for ETOH and opiates, no SI MD complaint: medical clearance for detox facility Last drink: Hours (ago) Chronic alcohol use: Yes Previous visits for alcohol intoxication: Yes Recent trauma: No Associated symptoms: denies other symptoms Treatments prior to arrival: none Related Data Home Medications Medication Instructions Recorded Confirmed dextroamphetamine-amphetamine 20 20 mg PO BID 12/29/19 05/04/20 mg tablet gabapentin 1 cap PO TID 04/01/20 05/04/20 lisdexamfetamine [Vyvanse] 1 cap PO DAILY 04/01/20 05/04/20 venlafaxine 2 tab PO DAILY 04/01/20 05/04/20 Previous Rx's Medication Instructions Recorded buprenorphine 8 mg-naloxone 2 mg 2 film SUBLINGUAL DAILY 14 Days 05/06/20 sublingual film #28 ea Allergies Allergy/AdvReac Type Severity Reaction Status Date / Time No Known Allergies Allergy Verified 01/10/20 13:53 Review of Systems Review of Systems: Constitutional : No Fever, No Chills ENT/Mouth : No Ear Pain, No Nasal Congestion, No sore throat Eyes: No Eye Pain, No Swelling, No Redness Cardiovascular : No Chest Pain, No SOB Respiratory : No Cough, No Sputum, No Dyspnea Gastrointestinal : No Nausea, No Vomiting, No Diarrhea, No Hematochezia, No Melena Genitourinary : No Dysuria, No Urinary Frequency, No Hematuria Musculoskeletal : No Myalgias Skin : No Skin Lesions, No rash Neuro : No Weakness, No Numbness, No Paresthesias, No Dizziness, No Headache Psych : positive Anxiety, positive Depression, no SI/HI Heme/Lymph: No Lymphadenopathy Endocrine : No Polyuria, No Polydipsia All other systems reviewed and are negative PMFSH Past Medical History Attestation statement: The following information was validated with the patient. Medical History Diabetes Multiple sclerosis Opioid use disorder Social History Social History Alcohol intake: current Alcohol intake frequency: 3 or more drinks per day Alcohol type: beer Smoking Status: Current every day smoker Substance Use Type: Marijuana Advance Directives: No Advance Directives Information Provided: No Physical Exam Vital Signs: Vital Signs: Last Vital Signs Temp 97.7 F 08/08/20 06:27 Pulse 66 08/08/20 06:27 Resp 18 08/08/20 08:00 BP 107/77 08/08/20 06:27 Pulse Ox 99 08/08/20 08:00 Body Mass Index 20.7 Appearance: Alert. Oriented X3. No acute distress. Eyes: Pupils equal, round and reactive to light. ENT: Pharynx normal. Neck: Normal inspection. Neck supple. CVS: Normal heart rate and rhythm. Pulses normal. Respiratory: No respiratory distress. Breath sounds normal. Abdomen: Soft and nontender. Skin: Skin warm and dry. Normal skin color. Normal skin turgor. Extremities: No lower extremity edema. No calf ttp Neuro: Oriented X 3. No motor deficit. No sensory deficit. Course Course Course Narrative: care team - possible [facility] intake today or tomorrow [facility] today MDM - Alcohol MDM Narrative Medical decision making narrative: 45 yo male here for detox help ETOH and opiates, no medical complaints - no SI, labs and CARE team consult Lab Data Result diagrams: 08/08/20 07:37 08/08/20 07:36 Labs: Lab Results 08/08/20 08/08/20 08/08/20 Range/Units 07:36 07:37 07:37 WBC (4.8-10.8) X10*3/uL RBC (4.60-5.80) X10*6/uL Hgb (14.0-18.0) g/dl Hct (42-52) % MCV (80-98) fL MCH (27.0-33.0) pg MCHC (31.0-36.0) g/dl RDW (11.0-16.0) % Plt Count (160-400) X10*3/uL MPV (9.4-12.4) fL Immature Gran % (Auto) (0.0-0.4) % Neut % (Auto) (45-73) % Lymph % (Auto) (20-40) % [place] % (Auto) (2-11) % Eos % (Auto) (0-4) % Baso % (Auto) (0-2) % Lymph # (Auto) (1.2-4.9) X10*3/uL Queens # (Auto) (0.1-1.2) X10*3/uL Eos # (Auto) (0.0-0.4) X10*3/uL Baso # (Auto) (0.0-0.2) X10*3/uL Abs Immat Gran (auto) (0.00-0.03) X10*3/uL Absolute Neuts (auto) (2.0-8.3) X10*3/uL Absolute Nucleated RBC (0.0-0.012) X10*3/uL Nucleated RBC % (auto) (0.0-0.2) /100WBC Sodium 142 (135-145) mmol/L Potassium 3.9 (3.3-5.1) mmol/L Chloride 108 (96-108) mmol/L Carbon Dioxide 26 (22-29) mmol/L Anion Gap 12 (12-20) BUN 16 (9-16) mg/dL Creatinine 0.64 (0.5-1.4) mg/dL Estim Creat Clear Calc 129.5 Estimated GFR > 60 Random Glucose 101 (60-115) mg/dL Calcium 8.8 (8.4-10.2) mg/dL Total Bilirubin 0.5 (0.0-1.0) mg/dL Direct Bilirubin 0.2 (0.0-0.5) mg/dL AST 21 D (5-37) U/L ALT 19 (0-40) U/L Alkaline Phosphatase 67 (39-117) U/L Total Protein 6.7 (6.5-8.0) g/dL Albumin 3.8 (3.5-5.0) g/dL Ethyl Alcohol < 10 mg/dL COVID-19 ([facility]) Negative (Negative) COVID-19 Clin Com See Note 08/08/20 Range/Units 07:37 WBC 5.5 (4.8-10.8) X10*3/uL RBC 3.83 L (4.60-5.80) X10*6/uL Hgb 12.3 L (14.0-18.0) g/dl Hct 36.6 L (42-52) % MCV 95.6 (80-98) fL MCH 32.1 (27.0-33.0) pg MCHC 33.6 (31.0-36.0) g/dl RDW 12.0 (11.0-16.0) % Plt Count 160 D (160-400) X10*3/uL MPV 11.6 (9.4-12.4) fL Immature Gran % (Auto) 0.2 (0.0-0.4) % Neut % (Auto) 56.4 (45-73) % Lymph % (Auto) 25.8 (20-40) % [place] % (Auto) 10.8 (2-11) % Eos % (Auto) 6.4 H (0-4) % Baso % (Auto) 0.4 (0-2) % Lymph # (Auto) 1.4 (1.2-4.9) X10*3/uL [place] # (Auto) 0.6 (0.1-1.2) X10*3/uL Eos # (Auto) 0.4 (0.0-0.4) X10*3/uL Baso # (Auto) 0.0 (0.0-0.2) X10*3/uL Abs Immat Gran (auto) 0.01 (0.00-0.03) X10*3/uL Absolute Neuts (auto) 3.1 (2.0-8.3) X10*3/uL Absolute Nucleated RBC 0.000 (0.0-0.012) X10*3/uL Nucleated RBC % (auto) 0.0 (0.0-0.2) /100WBC Sodium (135-145) mmol/L Potassium (3.3-5.1) mmol/L Chloride (96-108) mmol/L Carbon Dioxide (22-29) mmol/L Anion Gap (12-20) BUN (9-16) mg/dL Creatinine (0.5-1.4) mg/dL Estim Creat Clear Calc Estimated GFR Random Glucose (60-115) mg/dL Calcium (8.4-10.2) mg/dL Total Bilirubin (0.0-1.0) mg/dL Direct Bilirubin (0.0-0.5) mg/dL AST (5-37) U/L ALT (0-40) U/L Alkaline Phosphatase (39-117) U/L Total Protein (6.5-8.0) g/dL Albumin (3.5-5.0) g/dL Ethyl Alcohol mg/dL COVID-19 ([facility]) (Negative) COVID-19 Clin Com Discharge Plan Discharge Clinical Impression: Opioid use disorder Patient Disposition: Xfer Other Transfer Details: [facility] Instructions: Polysubstance Abuse (ED) Additional Instructions: return to ED for any worsening symptoms or concerns Prescriptions: No Action buprenorphine-naloxone [Suboxone] 8-2 mg film 2 film sublingual DAILY 14 Days Qty: 28 RF: 0 venlafaxine 75 mg tablet 2 tab PO DAILY RF: 0 gabapentin 400 mg capsule 1 cap PO TID RF: 0 Vyvanse 20 mg capsule 1 cap PO DAILY RF: 0 dextroamphetamine-amphetamine [Adderall] 20 mg tablet 20 mg PO BID RF: 0
[2020-08-08 07:42] LABS: MANUAL DIFF FLAG NO
[2020-08-08 07:43] LABS: Basophils Percent Auto 0.4 % (0-2); Eosinophils Absolute Auto 0.4 X10*3/uL (0.0-0.4); Eosinophils Percent Auto 6.4 % (0-4); Hematocrit 36.6 % (42-52); Hemoglobin 12.3 g/dl (14.0-18.0); Imm Gran Abs Auto 0.01 X10*3/uL (0.00-0.03); Imm Gran Pct Auto 0.2 % (0.0-0.4); Lymphocytes Absolute Auto 1.4 X10*3/uL (1.2-4.9); Lymphocytes Percent Auto 25.8 % (20-40); Mean Corpuscular HGB Conc 33.6 g/dl (31.0-36.0); Mean Corpuscular Hemoglobin 32.1 pg (27.0-33.0); Mean Corpuscular Volume 95.6 fL (80-98); Mean Platelet Volume 11.6 fL (9.4-12.4); Monocytes Absolute Auto 0.6 X10*3/uL (0.1-1.2); Monocytes Percent Auto 10.8 % (2-11); Neutrophils Absolute Auto 3.1 X10*3/uL (2.0-8.3); Neutrophils Percent Auto 56.4 % (45-73); Platelet Count 160 X10*3/uL (160-400); Red Blood Count 3.83 X10*6/uL (4.60-5.80); White Blood Count 5.5 X10*3/uL (4.8-10.8)
[2020-08-08 07:57] LABS: COVID-19 Test Negative (Negative)
[2020-08-08 08:00] VITALS: RESP 18; O2SAT 99
--- NOTE | 2020-08-08 08:07 | MHC.RECOVSUP ---
Recovery Support note: Patient is a 45 year old Surinamese speaking male who presented to [facility] ED seeking detox. Patient reports that he has been drinking at least 12 beers a day and has been using at least 2 bags of heroin daily. Patient is medically cleared and reports he is willing to go anywhere for treatment. This filing writer will refer patient to ATS facilities.
[2020-08-08 08:09] LABS: Ethanol < 10 mg/dL
[2020-08-08 08:13] LABS: Alanine Aminotransferase 19 U/L (0-40); Albumin Level 3.8 g/dL (3.5-5.0); Alkaline Phosphatase 67 U/L (39-117); Anion Gap 12 (12-20); Aspartate Amino Transferase 21 U/L (5-37); Bilirubin Direct 0.2 mg/dL (0.0-0.5); Bilirubin Total 0.5 mg/dL (0.0-1.0); Blood Urea Nitrogen 16 mg/dL (9-16); Calcium 8.8 mg/dL (8.4-10.2); Carbon Dioxide 26 mmol/L (22-29); Chloride 108 mmol/L (96-108); Creatinine Clr Calc Pharmacy 129.5; Estimated Glomerular Filt Rate > 60; Glucose Random 101 mg/dL (60-115); Potassium 3.9 mmol/L (3.3-5.1); Sodium 142 mmol/L (135-145); Total Protein 6.7 g/dL (6.5-8.0)
--- NOTE | 2020-08-08 09:32 | MHC.RECOVSUP ---
Recovery Support note: Patient completed intake with [facility] and has been accepted for admission. Nurse to nurse completed by MAGALY Lawrence. [facility] will pick patient up this morning and transport him to the facility. Patient aware and agreeable.
[2020-08-08 11:37] LABS: Amphetamine Screen Urine Not Detected (Not Detect); Barbiturates, Urine Not Detected (Not Detect); Benzodiazepines Screen Urine Not Detected (Not Detect); Cannabinoid Screen Urine Not Detected (Not Detect); Cocaine Screen Urine POSITIVE (Not Detect); Opiate Screen Urine POSITIVE (Not Detect); Phencyclidine Screen Urine Not Detected (Not Detect)
== END 2020-08-08 11:41 | disposition other institution (70) ==
PROVIDERS: Student in an Organized Health Care Education/Training Program; Emergency Provider Emergency Medicine
DX: F10.99 Alcohol use, unspecified with unspecified alcohol-induced disorder (principal); Y90.0 Blood alcohol level of less than 20 mg/100 ml; F11.99 Opioid use, unspecified with unspecified opioid-induced disorder; F12.90 Cannabis use, unspecified, uncomplicated; F14.90 Cocaine use, unspecified, uncomplicated; Z20.822 Contact with and (suspected) exposure to COVID-19; F41.9 Anxiety disorder, unspecified; F32.9 Major depressive disorder, single episode, unspecified; E11.9 Type 2 diabetes mellitus without complications; G35 Multiple sclerosis; F17.200 Nicotine dependence, unspecified, uncomplicated; Z79.899 Other long term (current) drug therapy
CPT/HCPCS: 36415; 80048; 80076; 80307; 80320; 85025; 87635; 99284

== ENCOUNTER 2020-09-08 13:02 | Outpatient (REF) | payer MEDICARE, MEDICAID, SELFPAY ==
[2020-09-12 09:52] LABS: Buprenorphine 120 ng/mL; Norbuprenorphine 150 ng/mL
== END 2020-09-08 13:03 | disposition home or self-care (01) ==
LOC: HO.LAB 13:02
PROVIDERS: Visit Provider Internal Medicine
DX: F11.20 Opioid dependence, uncomplicated (principal)
CPT/HCPCS: 80305; 80348; 99212

== ENCOUNTER → 2020-09-15 13:17 | Outpatient (BNVA) | payer MEDICARE, MEDICAID, SELFPAY | PROVIDERS: Visit Provider Internal Medicine | DX: F11.20 Opioid dependence, uncomplicated (principal) | CPT/HCPCS: 80305; 99211 ==

== ENCOUNTER → 2020-09-22 13:29 | Outpatient (BNVA) | payer MEDICARE, MEDICAID, SELFPAY | PROVIDERS: Visit Provider Internal Medicine | DX: Z13.89 Encounter for screening for other disorder (principal) | CPT/HCPCS: 99211 ==

== ENCOUNTER → 2020-10-07 13:11 | Outpatient (BNVA) | payer MEDICARE, MEDICAID, SELFPAY | PROVIDERS: Visit Provider Internal Medicine | DX: F11.20 Opioid dependence, uncomplicated (principal) | CPT/HCPCS: 80305; 99212 ==

== ENCOUNTER → 2020-10-21 14:12 | Outpatient (BNVA) | payer MEDICARE, MEDICAID, SELFPAY | PROVIDERS: Visit Provider Internal Medicine | DX: F11.99 Opioid use, unspecified with unspecified opioid-induced disorder (principal) | CPT/HCPCS: 80305; 99211 ==

== ENCOUNTER → 2020-11-04 14:03 | Outpatient (BNVA) | payer MEDICARE, MEDICAID, SELFPAY | PROVIDERS: PCP Internal Medicine; Visit Provider Internal Medicine | DX: F11.99 Opioid use, unspecified with unspecified opioid-induced disorder (principal) | CPT/HCPCS: 80305; 99211 ==

== ENCOUNTER → 2020-12-02 14:11 | Outpatient (BNVA) | payer MEDICARE, MEDICAID, SELFPAY | PROVIDERS: PCP Internal Medicine; Visit Provider Internal Medicine | DX: F11.20 Opioid dependence, uncomplicated (principal); G35 Multiple sclerosis; E11.9 Type 2 diabetes mellitus without complications | CPT/HCPCS: 80305; 99212 ==

== ENCOUNTER 2020-12-30 14:48 | Outpatient (REF) | payer MEDICARE, MEDICAID, SELFPAY ==
[2020-12-30 17:26] LABS: Fentanyl, urine Not Detected (Not Detect)
== END 2020-12-30 14:49 | disposition home or self-care (01) ==
LOC: HO.LNP 14:48
PROVIDERS: Visit Provider Internal Medicine
DX: F11.99 Opioid use, unspecified with unspecified opioid-induced disorder (principal); Z79.899 Other long term (current) drug therapy
CPT/HCPCS: 80307; 99212

== ENCOUNTER → 2021-01-27 13:06 | Outpatient (BNVA) | payer MEDICARE, MEDICAID, SELFPAY | PROVIDERS: Visit Provider Internal Medicine | DX: F11.20 Opioid dependence, uncomplicated (principal) | CPT/HCPCS: 80305; 99212 ==

== ENCOUNTER → 2021-02-24 10:28 | Outpatient (BNVA) | payer MEDICARE, MEDICAID, SELFPAY | PROVIDERS: Visit Provider Internal Medicine | DX: F11.90 Opioid use, unspecified, uncomplicated (principal) | CPT/HCPCS: 99212 ==

== ENCOUNTER → 2021-02-25 14:48 | Outpatient (BNVA) | payer MEDICARE, MEDICAID, SELFPAY | PROVIDERS: Visit Provider Internal Medicine ==

== ENCOUNTER → 2021-03-03 14:20 | Outpatient (BNVA) | payer MEDICARE, MEDICAID, SELFPAY | PROVIDERS: Visit Provider Internal Medicine | DX: F11.20 Opioid dependence, uncomplicated (principal) | CPT/HCPCS: 80305; 96372; 99212; Q9992 ==

== ENCOUNTER 2021-03-04 13:18 | Outpatient (RCR) | payer MEDICARE, MEDICAID, SELFPAY ==
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
== END 2021-03-04 13:19 | disposition home or self-care (01) ==
LOC: HO.PTMS 13:18
PROVIDERS: Visit Provider Psychiatry & Neurology Psychiatry
DX: F33.2 Major depressive disorder, recurrent severe without psychotic features (principal); F43.10 Post-traumatic stress disorder, unspecified; F90.9 Attention-deficit hyperactivity disorder, unspecified type; F11.99 Opioid use, unspecified with unspecified opioid-induced disorder

== ENCOUNTER → 2021-03-31 13:01 | Outpatient (BNVA) | payer MEDICAID, SELFPAY | PROVIDERS: Visit Provider Internal Medicine ==

== ENCOUNTER → 2021-04-06 13:15 | Outpatient (BNVA) | payer MEDICARE, MEDICAID, SELFPAY | PROVIDERS: Visit Provider Internal Medicine | DX: F11.20 Opioid dependence, uncomplicated (principal); F12.90 Cannabis use, unspecified, uncomplicated; F17.210 Nicotine dependence, cigarettes, uncomplicated | CPT/HCPCS: 96372; 99212; Q9992 ==

== ENCOUNTER → 2021-05-04 13:26 | Outpatient (BNVA) | payer MEDICARE, MEDICAID, SELFPAY | PROVIDERS: Visit Provider Internal Medicine | DX: Z51.81 Encounter for therapeutic drug level monitoring (principal); F11.20 Opioid dependence, uncomplicated; F17.210 Nicotine dependence, cigarettes, uncomplicated | CPT/HCPCS: 80305; 96372; 99212; Q9991 ==

== ENCOUNTER → 2021-06-01 12:58 | Outpatient (BNVA) | payer MEDICARE, MEDICAID, SELFPAY | PROVIDERS: Visit Provider Internal Medicine | DX: Z51.81 Encounter for therapeutic drug level monitoring (principal); F11.20 Opioid dependence, uncomplicated | CPT/HCPCS: 80305; 99212 ==

== ENCOUNTER 2021-06-03 12:00 | Outpatient (RCR) | payer MEDICARE, MEDICAID, SELFPAY ==
--- NOTE | 2021-03-12 15:09 | HO.TMSDAILY2 ---
TMS Daily Progress Note Daily TMS Progress Note Date of Service: 03/12/21 Week #: 1 Treatment #(05-03): 1 PHQ-9 Pre-Treatment (04-30): 26 PHQ-9 Most Recent (04-30): 26 Reviewed: TMS Mapping/Re-mapping completed Verification: I have reviewed the TMS Spark Plug Assembler Note and agree with the contents. The patient remains a candidate to continue TMS treatment per protocol. Assessment and Plan (1) Major depressive disorder, recurrent severe without psychotic features: Status: Acute (2) Post traumatic stress disorder (PTSD): Status: Acute Patient completed initial mapping Dr. Ferreira completed under supervision monitor for any worsening symptoms patient does have a history of suicide attempts he does state he is safe and stable at this time for this treatment understands that it is a gradual treatment
--- NOTE | 2021-03-16 22:45 | HO.TMSDAILY2 ---
TMS Daily Progress Note Daily TMS Progress Note Date of Service: 03/13/21 Week #: 1 Treatment #(05-03): 2 PHQ-9 Pre-Treatment (04-30): 26 PHQ-9 Most Recent (04-30): 26 Reviewed: TMS Tech Note Reviewed Verification: I have reviewed the TMS Fire Lieutenant Marine Note and agree with the contents. The patient remains a candidate to continue TMS treatment per protocol.
--- NOTE | 2021-03-16 22:48 | P.PNPS_ITS ---
TMS Daily Progress Note Daily TMS Progress Note Date of Service: 03/16/21 Week #: 1 Treatment #(05-03): 3 PHQ-9 Pre-Treatment (04-30): 26 PHQ-9 Most Recent (04-30): 26 Reviewed: TMS Tech Note Reviewed Verification: I have reviewed the TMS Professional Services Specialist Note and agree with the contents. The patient remains a candidate to continue TMS treatment per pro tocol.
--- NOTE | 2021-03-17 22:36 | HO.TMSDAILY2 ---
TMS Daily Progress Note Daily TMS Progress Note Date of Service: 03/17/21 Week #: 1 Treatment #(05-03): 4 PHQ-9 Pre-Treatment (04-30): 26 PHQ-9 Most Recent (04-30): 26 Reviewed: TMS Tech Note Reviewed Verification: I have reviewed the TMS Marketing Specialist Note and agree with the contents. The patient remains a candidate to continue TMS treatment per protocol. Assessment and Plan (1) Major depressive disorder, recurrent severe without psychotic features: Status: Acute (2) Post traumatic stress disorder (PTSD): Status: Acute tolerating tx monitor response
--- NOTE | 2021-03-19 23:16 | HO.TMSDAILY2 ---
TMS Daily Progress Note Daily TMS Progress Note Date of Service: 03/18/21 Week #: 1 Treatment #(05-03): 5 PHQ-9 Pre-Treatment (04-30): 26 PHQ-9 Most Recent (04-30): 26 Reviewed: TMS Tech Note Reviewed Verification: I have reviewed the TMS Blast Furnace Keeper Helper Note and agree with the contents. The patient remains a candidate to continue TMS treatment per protocol.
--- NOTE | 2021-03-20 17:23 | HO.TMSDAILY2 ---
TMS Daily Progress Note Daily TMS Progress Note Date of Service: 03/20/21 Week #: 2 Treatment #(05-03): 7 PHQ-9 Pre-Treatment (04-30): 26 PHQ-9 Most Recent (04-30): 26 Reviewed: TMS Tech Note Reviewed Verification: I have reviewed the TMS Special Procedures Nurse Note and agree with the contents. The patient remains a candidate to continue TMS treatment per protocol. Assessment and Plan (1) Major depressive disorder, recurrent severe without psychotic features: Status: Acute (2) Post traumatic stress disorder (PTSD): Status: Acute tolerating tx monitor response
--- NOTE | 2021-03-23 17:24 | P.PNPS_ITS ---
TMS Daily Progress Note Daily TMS Progress Note Date of Service: 03/23/21 Week #: 2 Treatment #(05-03): 8 PHQ-9 Pre-Treatment (04-30): 26 PHQ-9 Most Recent (04-30): 26 Reviewed: TMS Tech Note Reviewed Verification: I have reviewed the TMS Therapeutic Recreation Director Note and agree with the contents. The patient remains a candidate to continue TMS treatment per pro tocol.
--- NOTE | 2021-03-25 08:50 | P.PNPS_ITS ---
TMS Daily Progress Note Daily TMS Progress Note Date of Service: 03/24/21 Week #: 2 Treatment #(05-03): 9 PHQ-9 Pre-Treatment (04-30): 26 PHQ-9 Most Recent (04-30): 26 Reviewed: TMS Tech Note Reviewed Verification: I have reviewed the TMS Freight Claim Investigator Note and agree with the contents. The patient remains a candidate to continue TMS treatment per pro tocol. Assessment and Plan (1) Major depressive disorder, recurrent severe without psychotic features: Status: Acute (2) Post traumatic stress disorder (PTSD): Status: Acute (3) ADHD (attention deficit hyperactivity disorder): Status: Acute Continue treatment plan
--- NOTE | 2021-03-25 23:11 | P.PNPS_ITS ---
TMS Daily Progress Note Daily TMS Progress Note Date of Service: 03/25/21 Week #: 2 Treatment #(05-03): 10 PHQ-9 Pre-Treatment (04-30): 26 PHQ-9 Most Recent (04-30): 26 Reviewed: TMS Tech Note Reviewed Verification: I have reviewed the TMS [place] Machine Operator Note and agree with the contents. The patient remains a candidate to continue TMS treatment per pr otocol. Assessment and Plan (1) Major depressive disorder, recurrent severe without psychotic features: Status: Acute (2) Post traumatic stress disorder (PTSD): Status: Acute (3) ADHD (attention deficit hyperactivity disorder): Status: Acute No adverse effects noted continue treatment plan
--- NOTE | 2021-03-26 22:49 | HO.TMSDAILY2 ---
TMS Daily Progress Note Daily TMS Progress Note Date of Service: 03/26/21 Week #: 3 Treatment #(05-03): 11 PHQ-9 Pre-Treatment (04-30): 26 PHQ-9 Most Recent (04-30): 26 Reviewed: TMS Tech Note Reviewed Verification: I have reviewed the TMS Evp Managing Director Note and agree with the contents. The patient remains a candidate to continue TMS treatment per protocol. Assessment and Plan (1) Major depressive disorder, recurrent severe without psychotic features: Status: Acute (2) Post traumatic stress disorder (PTSD): Status: Acute (3) ADHD (attention deficit hyperactivity disorder): Status: Acute No adverse effects noted continue treatment plan
--- NOTE | 2021-03-30 22:50 | P.PNPS_ITS ---
TMS Daily Progress Note Daily TMS Progress Note Date of Service: 03/30/21 Week #: 3 Treatment #(05-03): 12 PHQ-9 Pre-Treatment (04-30): 26 PHQ-9 Most Recent (04-30): 26 Reviewed: TMS Tech Note Reviewed Verification: I have reviewed the TMS Hospice Volunteer Coordinator Note and agree with the contents. The patient remains a candidate to continue TMS treatment per pr otocol.
--- NOTE | 2021-03-31 22:16 | HO.TMSDAILY2 ---
TMS Daily Progress Note Daily TMS Progress Note Date of Service: 04/01/21 Week #: 3 Treatment #(05-03): 13 PHQ-9 Pre-Treatment (04-30): 26 PHQ-9 Most Recent (04-30): 26 Reviewed: TMS Tech Note Reviewed Verification: I have reviewed the TMS Ecosystem Ecology Professor Note and agree with the contents. The patient remains a candidate to continue TMS treatment per protocol.
--- NOTE | 2021-04-02 22:09 | P.PNPS_ITS ---
TMS Daily Progress Note Daily TMS Progress Note Date of Service: 04/02/21 Week #: 3 Treatment #(05-03): 15 PHQ-9 Pre-Treatment (04-30): 26 PHQ-9 Most Recent (04-30): 26 Reviewed: TMS Tech Note Reviewed Verification: I have reviewed the TMS Business Services Intern Note and agree with the contents. The patient remains a candidate to continue TMS treatment per pr otocol. Assessment and Plan (1) Major depressive disorder, recurrent severe without psychotic features: Status: Acute (2) Post traumatic stress disorder (PTSD): Status: Acute (3) ADHD (attention deficit hyperactivity disorder): Status: Acute No adverse effects noted continue treatment plan monitor for colleen
--- NOTE | 2021-04-09 15:03 | HO.TMSDAILY2 ---
TMS Daily Progress Note Daily TMS Progress Note Date of Service: 04/06/21 Week #: 4 Treatment #(05-03): 16 PHQ-9 Pre-Treatment (04-30): 26 PHQ-9 Most Recent (04-30): 26 Reviewed: TMS Tech Note Reviewed Verification: I have reviewed the TMS Family Member Caretaker Note and agree with the contents. The patient remains a candidate to continue TMS treatment per protocol.late entry 04/06/21
--- NOTE | 2021-04-09 16:07 | P.PNPS_ITS ---
TMS Daily Progress Note Daily TMS Progress Note Date of Service: 04/09/21 Week #: 4 Treatment #(05-03): 18 PHQ-9 Pre-Treatment (04-30): 26 PHQ-9 Most Recent (04-30): 26 Reviewed: TMS Tech Note Reviewed Verification: I have reviewed the TMS Rewinder Operator Note and agree with the contents. The patient remains a candidate to continue TMS treatment per pr otocol.
--- NOTE | 2021-04-09 19:06 | HO.TMSDAILY2 ---
TMS Daily Progress Note Daily TMS Progress Note Date of Service: 04/07/21 Week #: 4 Treatment #(05-03): 17 PHQ-9 Pre-Treatment (04-30): 26 PHQ-9 Most Recent (04-30): 26 Reviewed: TMS Tech Note Reviewed (for 04/07) Verification: I have reviewed the TMS Laundry Route Driver Note and agree with the contents. The patient remains a candidate to continue TMS treatment per protocol.
--- NOTE | 2021-04-13 21:51 | P.PNPS_ITS ---
TMS Daily Progress Note Daily TMS Progress Note Date of Service: 04/13/21 Week #: 4 Treatment #(05-03): 19 PHQ-9 Pre-Treatment (04-30): 26 PHQ-9 Most Recent (04-30): 26 Reviewed: TMS Tech Note Reviewed Verification: I have reviewed the TMS Franchise Consultant Note and agree with the contents. The patient remains a candidate to continue TMS treatment per pr otocol.
--- NOTE | 2021-04-15 21:53 | HO.TMSDAILY2 ---
TMS Daily Progress Note Daily TMS Progress Note Date of Service: 04/15/21 Week #: 5 Treatment #(05-03): 21 PHQ-9 Pre-Treatment (04-30): 26 PHQ-9 Most Recent (04-30): 26 Reviewed: TMS Tech Note Reviewed Verification: I have reviewed the TMS Support Service Tech Note and agree with the contents. The patient remains a candidate to continue TMS treatment per protocol.
--- NOTE | 2021-04-22 13:24 | P.PNPS_ITS ---
TMS Daily Progress Note Daily TMS Progress Note Date of Service: 04/22/21 Week #: 5 Treatment #(05-03): 22 PHQ-9 Pre-Treatment (04-30): 26 PHQ-9 Most Recent (04-30): 26 Reviewed: TMS Tech Note Reviewed Verification: I have reviewed the TMS Chief Executive Officer Note and agree with the contents. The patient remains a candidate to continue TMS treatment per pr otocol.
--- NOTE | 2021-05-04 23:26 | P.PNPS_ITS ---
TMS Daily Progress Note Daily TMS Progress Note Date of Service: 05/04/21 Week #: 5 Treatment #(05-03): 25 PHQ-9 Pre-Treatment (04-30): 26 PHQ-9 Most Recent (04-30): 26 Reviewed: TMS Tech Note Reviewed Verification: I have reviewed the TMS Environmental Services Director Note and agree with the contents. The patient remains a candidate to continue TMS treatment per protocol.
--- NOTE | 2021-05-05 17:49 | P.PNPS_ITS ---
TMS Daily Progress Note Daily TMS Progress Note Date of Service: 05/05/21 Week #: 6 Treatment #(05-03): 26 PHQ-9 Pre-Treatment (04-30): 26 PHQ-9 Most Recent (04-30): 26 Reviewed: TMS Tech Note Reviewed Verification: I have reviewed the TMS Tape Librarian Note and agree with the contents. The patient remains a candidate to continue TMS treatment per protocol. Assessment and Plan (1) Major depressive disorder, recurrent severe without psychotic features: Status: Acute Plan cont tx improvement noted
--- NOTE | 2021-05-06 23:13 | HO.TMSDAILY2 ---
TMS Daily Progress Note Daily TMS Progress Note Date of Service: 05/06/21 Week #: 6 Treatment #(05-03): 27 PHQ-9 Pre-Treatment (04-30): 26 PHQ-9 Most Recent (04-30): 26 Reviewed: TMS Tech Note Reviewed Verification: I have reviewed the TMS Analytics Specialist Note and agree with the contents. The patient remains a candidate to continue TMS treatment per protocol. Assessment and Plan (1) Major depressive disorder, recurrent severe without psychotic features: Status: Acute Plan discussed remap some inc dep sx
--- NOTE | 2021-05-07 22:35 | P.PNPS_ITS ---
TMS Daily Progress Note Daily TMS Progress Note Date of Service: 05/07/21 Week #: 6 Treatment #(05-03): 28 PHQ-9 Pre-Treatment (04-30): 26 PHQ-9 Most Recent (04-30): 26 Reviewed: TMS Mapping/Re-mapping completed Verification: I have reviewed the TMS Form Setter Steel Pan Forms Note and agree with the contents. The patient remains a candidate to continue TMS treatment per protocol. Assessment and Plan (1) Major depressive disorder, recurrent severe without psychotic features: Status: Acute monitor response to remap (2) Post traumatic stress disorder (PTSD): Status: Acute
--- NOTE | 2021-05-11 22:57 | HO.TMSDAILY2 ---
TMS Daily Progress Note Daily TMS Progress Note Date of Service: 05/11/21 Week #: 6 Treatment #(05-03): 29 PHQ-9 Pre-Treatment (04-30): 26 PHQ-9 Most Recent (04-30): 26 Reviewed: TMS Tech Note Reviewed Verification: I have reviewed the TMS Liberal Arts Teacher Note and agree with the contents. The patient remains a candidate to continue TMS treatment per protocol.
--- NOTE | 2021-05-12 23:00 | P.PNPS_ITS ---
TMS Daily Progress Note Daily TMS Progress Note Date of Service: 05/12/21 Week #: 6 Treatment #(05-03): 30 PHQ-9 Pre-Treatment (04-30): 26 PHQ-9 Most Recent (04-30): 26 Reviewed: TMS Tech Note Reviewed Verification: I have reviewed the TMS Sheet Metal Installer Note and agree with the contents. The patient remains a candidate to continue TMS treatment per protocol. Assessment and Plan (1) Major depressive disorder, recurrent severe without psychotic features: Status: Acute monitor response to remap (2) Post traumatic stress disorder (PTSD): Status: Acute Plan cont plan of care
--- NOTE | 2021-05-14 22:49 | P.PNPS_ITS ---
TMS Daily Progress Note Daily TMS Progress Note Date of Service: 05/13/21 Week #: 7 Treatment #(05-03): 31 PHQ-9 Pre-Treatment (04-30): 26 PHQ-9 Most Recent (04-30): 26 Reviewed: TMS Tech Note Reviewed Verification: I have reviewed the TMS Apple Picker Note and agree with the contents. The patient remains a candidate to continue TMS treatment per protocol.
--- NOTE | 2021-05-14 22:50 | HO.TMSDAILY2 ---
TMS Daily Progress Note Daily TMS Progress Note Date of Service: 05/14/21 Week #: 7 Treatment #(05-03): 32 PHQ-9 Pre-Treatment (04-30): 26 PHQ-9 Most Recent (04-30): 26 Reviewed: TMS Tech Note Reviewed Verification: I have reviewed the TMS Corporate Legal Intern Note and agree with the contents. The patient remains a candidate to continue TMS treatment per protocol.
--- NOTE | 2021-05-15 22:52 | P.PNPS_ITS ---
TMS Daily Progress Note Daily TMS Progress Note Date of Service: 05/15/21 Week #: 7 Treatment #(05-03): 32 PHQ-9 Pre-Treatment (04-30): 26 PHQ-9 Most Recent (04-30): 26 Reviewed: TMS Tech Note Reviewed Verification: I have reviewed the TMS Chiropractor Sole Practitioner Note and agree with the contents. The patient remains a candidate to continue TMS treatment per protocol.
--- NOTE | 2021-05-18 22:53 | HO.TMSDAILY2 ---
TMS Daily Progress Note Daily TMS Progress Note Date of Service: 05/18/21 Week #: 7 Treatment #(05-03): 33 PHQ-9 Pre-Treatment (04-30): 26 PHQ-9 Most Recent (04-30): 26 Reviewed: TMS Tech Note Reviewed Verification: I have reviewed the TMS Weather Algorithm Scientist Note and agree with the contents. The patient remains a candidate to continue TMS treatment per protocol. Assessment and Plan (1) Major depressive disorder, recurrent severe without psychotic features: Status: Acute (2) Post traumatic stress disorder (PTSD): Status: Acute (3) ADHD (attention deficit hyperactivity disorder): Status: Acute Plan phq 9 improved unclear quality life improvement
--- NOTE | 2021-05-19 16:01 | P.PNPS_ITS ---
TMS Daily Progress Note Daily TMS Progress Note Date of Service: 05/19/21 Week #: 7 Treatment #(05-03): 34 PHQ-9 Pre-Treatment (04-30): 26 PHQ-9 Most Recent (04-30): 26 Reviewed: TMS Tech Note Reviewed Verification: I have reviewed the TMS Protohistorian Note and agree with the contents. The patient remains a candidate to continue TMS treatment per protocol. Assessment and Plan (1) Major depressive disorder, recurrent severe without psychotic features: Status: Acute (2) Post traumatic stress disorder (PTSD): Status: Acute (3) ADHD (attention deficit hyperactivity disorder): Status: Acute Plan phq 9 improved cont tx
--- NOTE | 2021-05-20 16:18 | HO.TMSDAILY2 ---
TMS Daily Progress Note Daily TMS Progress Note Date of Service: 05/20/21 Week #: 7 Treatment #(05-03): 35 PHQ-9 Pre-Treatment (04-30): 26 PHQ-9 Most Recent (04-30): 26 Reviewed: TMS Tech Note Reviewed Verification: I have reviewed the TMS Formal Service Waiter Note and agree with the contents. The patient remains a candidate to continue TMS treatment per protocol. Assessment and Plan (1) Major depressive disorder, recurrent severe without psychotic features: Status: Acute (2) Post traumatic stress disorder (PTSD): Status: Acute (3) ADHD (attention deficit hyperactivity disorder): Status: Acute Plan THE PATIENT SHOWS CLEAR IMPROVEMENT
--- NOTE | 2021-05-21 23:27 | P.PNPS_ITS ---
TMS Daily Progress Note Daily TMS Progress Note Date of Service: 05/21/21 Week #: 7 Treatment #(05-03): 36 PHQ-9 Pre-Treatment (04-30): 26 PHQ-9 Most Recent (04-30): 26 Reviewed: TMS Tech Note Reviewed Verification: I have reviewed the TMS Band Bias Machine Operator Note and agree with the contents. The patient remains a candidate to continue TMS treatment per protocol.
--- NOTE | 2021-05-22 23:21 | P.PNPS_ITS ---
TMS Daily Progress Note Daily TMS Progress Note Date of Service: 05/22/21 Week #: 7 Treatment #(05-03): 37 PHQ-9 Pre-Treatment (04-30): 26 PHQ-9 Most Recent (04-30): 26 Reviewed: TMS Tech Note Reviewed Verification: I have reviewed the TMS Cigar Making Machine Supervisor Note and agree with the contents. The patient remains a candidate to continue TMS treatment per protocol. Assessment and Plan (1) Major depressive disorder, recurrent severe without psychotic features: Status: Acute (2) Post traumatic stress disorder (PTSD): Status: Acute (3) ADHD (attention deficit hyperactivity disorder): Status: Acute Plan THE PATIENT SHOWS CLEAR IMPROVEMENT would benefit from extended course
--- NOTE | 2021-05-26 22:22 | P.PNPS_ITS ---
TMS Daily Progress Note Daily TMS Progress Note Date of Service: 05/26/21 Week #: 8 Treatment #(05-03): 38 PHQ-9 Pre-Treatment (04-30): 26 PHQ-9 Most Recent (04-30): 26 Reviewed: TMS Tech Note Reviewed Verification: I have reviewed the TMS Oracle Ebs Consultant Note and agree with the contents. The patient remains a candidate to continue TMS treatment per protocol. Assessment and Plan (1) Major depressive disorder, recurrent severe without psychotic features: Status: Acute (2) Post traumatic stress disorder (PTSD): Status: Acute (3) ADHD (attention deficit hyperactivity disorder): Status: Acute Plan Monitor response to [id number] tx course
--- NOTE | 2021-05-27 22:51 | P.PNPS_ITS ---
TMS Daily Progress Note Daily TMS Progress Note Date of Service: 05/28/21 Week #: 8 Treatment #(05-03): 39 PHQ-9 Pre-Treatment (04-30): 26 PHQ-9 Most Recent (04-30): 26 Reviewed: TMS Tech Note Reviewed Verification: I have reviewed the TMS Library Circulation Technician Note and agree with the contents. The patient remains a candidate to continue TMS treatment per protocol.
--- NOTE | 2021-05-28 21:43 | HO.TMSDAILY2 ---
TMS Daily Progress Note Daily TMS Progress Note Date of Service: 05/28/21 Week #: 8 Treatment #(05-03): 40 PHQ-9 Pre-Treatment (04-30): 26 PHQ-9 Most Recent (04-30): 26 Reviewed: TMS Tech Note Reviewed Verification: I have reviewed the TMS Filling Station Attendant Note and agree with the contents. The patient remains a candidate to continue TMS treatment per protocol.
--- NOTE | 2021-05-29 22:17 | P.PNPS_ITS ---
TMS Daily Progress Note Daily TMS Progress Note Date of Service: 06/01/21 Week #: 8 Treatment #(05-03): 41 PHQ-9 Pre-Treatment (04-30): 26 PHQ-9 Most Recent (04-30): 26 Reviewed: TMS Tech Note Reviewed Verification: I have reviewed the TMS Certified Registered Locksmith Note and agree with the contents. The patient remains a candidate to continue TMS treatment per protocol. Assessment and Plan (1) Major depressive disorder, recurrent severe without psychotic features: Status: Acute (2) Post traumatic stress disorder (PTSD): Status: Acute (3) ADHD (attention deficit hyperactivity disorder): Status: Acute Plan Monitor response to extended tx course had late response doing well with extension
--- NOTE | 2021-06-03 09:02 | P.PNPS_ITS ---
TMS Daily Progress Note Daily TMS Progress Note Date of Service: 06/03/21 Week #: 8 Treatment #(05-03): 42 PHQ-9 Pre-Treatment (04-30): 26 PHQ-9 Most Recent (04-30): 26 Reviewed: TMS Tech Note Reviewed Verification: I have reviewed the TMS Pumper Gager Apprentice Note and agree with the contents. The patient remains a candidate to continue TMS treatment per protocol.
== END 2021-06-04 11:37 | disposition home or self-care (01) ==
LOC: HO.PTMS 12:00
PROVIDERS: Visit Provider Psychiatry & Neurology Psychiatry
DX: F33.2 Major depressive disorder, recurrent severe without psychotic features (principal); F43.10 Post-traumatic stress disorder, unspecified
CPT/HCPCS: 90867; 90868; 90869

== ENCOUNTER → 2021-06-09 11:04 | Outpatient (BNVA) | payer MEDICARE, MEDICAID, SELFPAY | PROVIDERS: Visit Provider Internal Medicine | DX: F11.20 Opioid dependence, uncomplicated (principal) | CPT/HCPCS: 80305; 96372; 99212; Q9991 ==

== ENCOUNTER → 2021-07-07 13:34 | Outpatient (BNVA) | payer MEDICARE, MEDICAID, SELFPAY | PROVIDERS: Visit Provider Internal Medicine | DX: F11.20 Opioid dependence, uncomplicated (principal); F90.9 Attention-deficit hyperactivity disorder, unspecified type | CPT/HCPCS: 80305; 96372; 99212 ==

== ENCOUNTER 2023-10-21 20:55 | Emergency (ER) | payer MEDICARE, MEDICAID, SELFPAY ==
[2023-10-21 20:59] VITALS: BP 120/70; PULSE 83; O2SAT 94; BMI 22.6
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
[2023-10-21 21:33] VITALS: BP 109/72; PULSE 83; RESP 18; TEMP 36.9; O2SAT 95
[2023-10-21 21:46] VITALS: BP 109/72; PULSE 83; RESP 18; TEMP 36.9; O2SAT 95
== END 2023-10-21 21:47 | disposition home or self-care (01) ==
PROVIDERS: Emergency Provider Internal Medicine
DX: F10.220 Alcohol dependence with intoxication, uncomplicated (principal); Y90.9 Presence of alcohol in blood, level not specified; E11.9 Type 2 diabetes mellitus without complications; G35 Multiple sclerosis; F17.210 Nicotine dependence, cigarettes, uncomplicated; F12.90 Cannabis use, unspecified, uncomplicated
CPT/HCPCS: 99282; 99283

== ENCOUNTER 2024-01-20 16:21 | Emergency (ER) | payer MEDICARE, MEDICAID, SELFPAY ==
[2024-01-20 16:32] VITALS: BP 114/57; BP 164/98; PULSE 86; PULSE 87; RESP 18; TEMP 36.8; O2SAT 98; BMI 21.8
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
== END 2024-01-20 17:44 | disposition left against medical advice (07) ==
PROVIDERS: Emergency Provider Emergency Medicine
DX: H57.12 Ocular pain, left eye (principal); Z53.21 Procedure and treatment not carried out due to patient leaving prior to being seen by health care provider
CPT/HCPCS: 99281

== ENCOUNTER 2024-01-20 19:11 | Emergency (ER) | payer MEDICARE, MEDICAID, SELFPAY ==
--- NOTE | 2024-01-20 19:15 | ED_ITS ---
HPI - Eye Problem General Chief complaint: Eye Problems Stated complaint: left eye pain Time Seen by Provider: 01/20/24 21:14 Source: patient Mode of arrival: ambulatory Limitations: no limitations History of Present Illness ED Provider: Dr. Arleen Alcantara HPI Narrative: Patient comes to the emergency room complaining of pain in the left eye. Patient states that earlier today he was walking in the [place], believes that a branch might have hit him in the eye. Patient complaining of photophobia, states it hurts quite a bit with blinking. Also, patient requesting his methadone dose. Related Data Home Medications ?Medication ?Instructions ?Recorded ?Confirmed lisdexamfetamine 20 mg capsule 1 cap PO DAILY 04/01/20 10/07/20 (Vyvanse) gabapentin 100 mg capsule 100 mg PO TID 02/24/21 mirtazapine 15 mg tablet (Remeron) 15 mg PO BEDTIME 02/24/21 venlafaxine 25 mg tablet 25 mg PO DAILY 02/24/21 Previous Rx's ?Medication ?Instructions ?Recorded nicotine (polacrilex) 4 mg buccal 4 mg buccal Q4-8H PRN nicotine 01/27/21 lozenge cravings 14 days #81 ea buprenorphine 100 mg/0.5 mL 100 mg (0.5 mL) subcut ONCE 30 04/22/21 solution,exten.rel.subcutaneous days #15 mL syringe (Sublocade) erythromycin 5 mg/gram (0.5 %) eye 1 appl ophthalmic-Left BID #3.5 01/20/24 ointment grams Allergies Allergy/AdvReac Type Severity Reaction Status Date / Time No Known Allergies Allergy Verified 01/20/24 19:18 Review of Systems Review of Systems: Constitutional : No Weight loss, No Fever, No Chills, No Night Sweats, No Fatigue, No Malaise ENT/Mouth : No Hearing loss, No Ear Pain, No Nasal Congestion, No Sinus Pain, No Hoarseness, No sore throat, No Rhinorrhea, No Swallowing Difficulty Eyes: Complaining of left eye pain, redness, tearing Cardiovascular : No Chest Pain, No SOB, No Dyspnea on Exertion, No Orthopnea, No Edema, No Palpitations Respiratory : No Cough, No Sputum, No Wheezing, No Smoke Exposure, No Dyspnea Gastrointestinal : No Nausea, No Vomiting, No Diarrhea, No Constipation, No abdominal Pain, No Hematochezia, No Melena Genitourinary : no irregular bleeding, No Dysuria, No Urinary Frequency, No Hematuria, No Urinary Incontinence, No Urgency, No Flank Pain, No Urinary Flow Changes, No Hesitancy Musculoskeletal : No joint pain, No Myalgias, No Joint Swelling Skin : No Skin Lesions, No rash Neuro : No Weakness, No Numbness, No Paresthesias, No Loss of Consciousness, No Dizziness, No Headache Psych : No Anxiety/Panic, No Depression, No SI/HI/AH/VH, No Social Issues, Heme/Lymph: No Bruising, No Bleeding,No Lymphadenopathy Endocrine : No Polyuria, No Polydipsia, No Temperature Intolerance [facility] Past Medical History Medical History Post traumatic stress disorder (PTSD) Major depressive disorder, recurrent severe without psychotic features Opioid use disorder Multiple sclerosis Diabetes Social History Social History Alcohol intake: current Alcohol intake frequency: 3 or more drinks per day Alcohol type: beer Comment: PT asking for more gum now Patient Tobacco Use Status: Current everyday Tobacco user Cigarettes Per Day: 20 Years Smoked: 35 Substance Use Type: Marijuana Advance Directives: No Advance Directives Information Provided: No Do you have a plan to hurt others: No Plan Physical Exam Vital Signs: Vital Signs: Last Vital Signs Temp 98.0 F 01/20/24 19:16 Pulse 80 01/20/24 19:16 Resp 18 01/20/24 19:16 BP 132/92 H 01/20/24 19:16 Pulse Ox 98 01/20/24 19:16 O2 Del Method Room Air 01/20/24 19:16 BMI result Body Mass Index 21.8 Const: Other: Appearance: Alert. Oriented X3. No acute distress. Eyes: Pupils equal, round and reactive to light. Under Wood's lamp and with fluorescein stain, left eye shows at the 2 o'clock position corneal abrasion. Negative Holly sign ENT: Pharynx normal. Neck: Normal inspection. Neck supple. No lymph nodes noted. No crepitus CVS: Normal heart rate and rhythm. Pulses normal. Normal S1 and S2 Respiratory: No respiratory distress. Breath sounds normal. No Wheezing. No rales Abdomen: Soft and nontender. No rigidity. No distention. Skin: Skin warm and dry. Normal skin color. Normal skin turgor. Extremities: No lower extremity edema. No Lacerations. No Rash Neuro: Oriented X 3. No motor deficit. No sensory deficit. Moving all extremities. No slurred speech. CN 2 through 12 grossly intact Psych: calm, cooperative, normal affect Course Course Course Narrative: This is a rapid medical exam performed by Joel Staples NP: Additional HPI, ROS, PE not included below will be deferred to primary provider. Patient is a 48-year-old male presenting to the ED with complaint of foreign body sensation to left eye. States he was hit on the eye with what he believes was a branch. At first visit requesting methadone dose. Patient then left from waiting room without completing treatment for several hours. He has now returned with same complaint. IOPs at initial visit: OS 8, OD 9 Medical Decision Making Medical Decision Making MDM Narrative: Earlier today, patient was here and then left without being seen. During that time, patient's methadone dose was confirmed, patient takes 45 mg a day. However he has not had any methadone for 2 days. Patient was given a dose of 30 mg in the ED. Patient will follow-up with his clinic tomorrow Discharge Plan Discharge Clinical Impression: Corneal abrasion Patient Disposition: Home, Self-Care Instructions: Corneal Abrasion (ED) Additional Instructions: Your medication was sent to [facility] in [facility] in [place], [place]. Please follow-up with your primary care physician tomorrow. If you have any worsening or new symptoms, please return to the emergency room or call 911 Prescriptions: New erythromycin 5 mg/gram (0.5 %) ointment 1 appl ophthalmic-Left BID Qty: 3.5 0RF No Action Sublocade 100 mg/0.5 mL solution, extended rel syringe 100 mg subcut ONCE 30 Days Qty: 15 5RF Vyvanse 20 mg capsule 1 cap PO DAILY nicotine (polacrilex) 4 mg lozenge 4 mg buccal Q4-8H PRN (Reason: nicotine cravings) 14 Days Qty: 81 3RF Sublocade 100 mg/0.5 mL solution, extended rel syringe 100 mg subcut ONCE Qty: 0.5 0RF gabapentin 100 mg capsule 100 mg PO TID mirtazapine [Remeron] 15 mg tablet 15 mg PO BEDTIME venlafaxine 25 mg tablet 25 mg PO DAILY Print Language: Slovenian
[2024-01-20 19:16] VITALS: BP 132/92; PULSE 80; RESP 18; TEMP 36.7; O2SAT 98; BMI 21.8
[2024-01-20] MEDS: methADONE HCl 20 MG/2 ML ORAL.CONC 30 MG PO (21:56)
[2024-01-20] MEDS: Fluorescein Sodium STRIP 1 STRIP EYE-LEFT (21:56)
[2024-01-20] MEDS: Tetracaine HCl/PF 0.5% Oph Sol 4 ML DROPS 1 DROP EYE-BOTH (21:56)
[2024-01-20 22:03] VITALS: BP 132/92; PULSE 80; RESP 18; TEMP 36.7; O2SAT 98
[2024-01-20 22:04] VITALS: BP 134/84; PULSE 81; RESP 16; TEMP 36.9; O2SAT 98
== END 2024-01-20 22:05 | disposition home or self-care (01) ==
PROVIDERS: Emergency Provider Emergency Medicine
DX: S05.02XA Injury of conjunctiva and corneal abrasion without foreign body, left eye, initial encounter (principal); S00.202A Unspecified superficial injury of left eyelid and periocular area, initial encounter; X58.XXXA Exposure to other specified factors, initial encounter; Y93.9 Activity, unspecified; Y92.9 Unspecified place or not applicable; Y99.9 Unspecified external cause status; H57.12 Ocular pain, left eye; H53.149 Visual discomfort, unspecified; E11.9 Type 2 diabetes mellitus without complications; G35 Multiple sclerosis
CPT/HCPCS: 99281; 99282; 99283

== ENCOUNTER 2024-01-22 04:53 | Inpatient (IN) | payer MEDICARE, MEDICAID, SELFPAY ==
[2024-01-22 04:57] VITALS: BP 125/79; PULSE 81; RESP 20; TEMP 37.2; O2SAT 95; BMI 21.8
--- NOTE | 2024-01-22 05:37 | MHC.EDTECH ---
Patient was changed into crisis attire,security present and took all belongings to [facility]patient is calm and cooperative, labs drawn and sent to lab.
[2024-01-22 05:47] LABS: Basophils Percent Auto 0.6 % (0-2); Eosinophils Absolute Auto 0.2 X10*3/uL (0.0-0.4); Eosinophils Percent Auto 4.1 % (0-4); Hematocrit 34.7 % (42.0-52.0); Hemoglobin 11.8 g/dl (14.0-18.0); Imm Gran Abs Auto 0.01 X10*3/uL (0.00-0.03); Imm Gran Pct Auto 0.2 % (0.0-0.4); Lymphocytes Absolute Auto 1.4 X10*3/uL (1.2-4.9); Lymphocytes Percent Auto 26.1 % (20-40); MANUAL DIFF FLAG NO; Mean Platelet Volume 10.5 fL (9.4-12.4); Monocytes Absolute Auto 0.5 X10*3/uL (0.1-1.2); Monocytes Percent Auto 9.9 % (2-11); Neutrophils Absolute Auto 3.1 x10*3/uL (2.0-8.3); Neutrophils Percent Auto 59.1 % (45-73); Platelet Count 258 X10*3/uL (160-400); Red Blood Count 3.69 X10*6/uL (4.60-5.80); White Blood Count 5.2 X10*3/uL (4.8-10.8)
[2024-01-22 06:02] LABS: Alanine Aminotransferase 31 U/L (0-40); Albumin Level 3.6 g/dL (3.5-5.0); Alkaline Phosphatase 104 U/L (39-117); Anion Gap 10 (12-20); Aspartate Amino Transferase 30 U/L (5-37); Bilirubin Total 0.3 mg/dL (0.0-1.0); Blood Urea Nitrogen 18 mg/dL (9-16); Carbon Dioxide 23 mmol/L (22-29); Chloride 111 mmol/L (96-108); Creatinine Clr Calc Pharmacy 103.2; Estimated Glomerular Filt Rate > 60; Ethanol 49 mg/dL; Glucose Random 117 mg/dL (60-115); Potassium 3.4 mmol/L (3.3-5.1); Sodium 141 mmol/L (135-145); Total Protein 7.5 g/dL (6.5-8.0)
[2024-01-22 06:08] LABS: Acetaminophen LAB < 3 mcg/mL (<30); Salicylate < 5.0 mg/dL (15-30)
--- NOTE | 2024-01-22 07:47 | HE.PHANOTE ---
re methadone verification last dose 45 mg given 01/18/24 @1131 @[facility]
--- NOTE | 2024-01-22 08:05 | PC.NURSE ---
Alert and oriented, denies pain or discomfort. Methadone last dose verified with [facility] in [place] and faxed to pharmacy.
--- NOTE | 2024-01-22 08:09 | ED_ITS ---
HPI - Psych General Chief Complaint: Psychiatric Symptoms Stated Complaint: Crisis Time Seen by Provider: 01/22/24 07:44 Source: patient and RN notes reviewed Mode of arrival: ambulatory Limitations: no limitations History of Present Illness ED Provider: Selena Baum PA-C [facility] Narrative: This is a 48-year-old male, with a past medical history of polysubstance abuse on methadone, PTSD, ADHD, and MDD who presents emergency department with complaints of increased depression and anxiety. Patient states that he has been off his psychiatric medications for 2 months. He states he was previously on Effexor, Adderall, which he has not been taking as his prescriber forced him to take his blood pressure daily and would not refill medications if his blood pressure was too high. He states that he did not feel good about this treatment plan and has not followed up. He reported suicidal and homicidal thoughts in triage however he does not report this during my assessment. He is currently homeless. He uses heroin and cocaine daily. He last you several hours ago. He states that he typically uses several bags of heroin a day. He also reports alcohol use, typiacally drinks 10 beers per day. Relieving factors: medication Exacerbating factors: drug use Context: recent alcohol abuse, recent drug abuse and not taking psychiatric medications Associated psychiatric symptoms: depression Related Data Home Medications ?Medication ?Instructions ?Recorded ?Confirmed methadone 10 mg/mL oral 45 mg PO DAILY 01/22/24 01/22/24 concentrate (Methadone Intensol) Allergies Allergy/AdvReac Type Severity Reaction Status Date / Time No Known Allergies Allergy Verified 01/22/24 05:01 Review of Systems 2 Review of Systems: Yes all other systems are reviewed and are negative Constitutional: Constitutional: Reports as per HPI [facility] Past Medical History Medical History Post traumatic stress disorder (PTSD) Major depressive disorder, recurrent severe without psychotic features Opioid use disorder Multiple sclerosis Diabetes Social History Social History Alcohol intake: current Alcohol intake frequency: 3 or more drinks per day Alcohol type: beer Comment: PT asking for more gum now Patient Tobacco Use Status: Current everyday Tobacco user Cigarettes Per Day: 20 Years Smoked: 35 Smoked in Last 30 Days: Yes Use of substances other than those prescribed or required for medical reasons: Yes Substance Use Type: Crack/Cocaine and Heroin Substance Use Frequency: Chronic Longstanding Last Used Substance: Hours (ago) Any prior treatment program specific to substance use: No Advance Directives: No Do you have a plan to hurt others: No Plan Physical Exam 2 Vital Signs: Vital Signs: Last Vital Signs Temp 98.9 F 01/22/24 04:57 Pulse 81 01/22/24 04:57 Resp 16 01/22/24 10:37 BP 125/79 01/22/24 04:57 Pulse Ox 95 01/22/24 04:57 O2 Del Method Room Air 01/22/24 04:57 BMI result Body Mass Index 21.8 Const: General: cooperative, comfortable and no acute distress O rientation/consciousness: patient oriented x3 Limitations: no limitations HEENT: Head: Yes normal to inspection, Yes normocephalic and Yes atraumatic Ears: hearing grossly normal bilaterally General nose exam: Normal external nose present Face and sinus: Yes normal facial exam Mouth: Normal oral and palatal mucosa present, oropharynx normal and moist mucous membranes Throat: Yes posterior oropharynx normal Eyes: General: appearance normal, both eyes and all related structures E yelids: Yes eyelids normal Conjunctivae: conjunctivae normal Sclerae: s clerae normal Pupils: Equal, round and reactive pupils present EOM: EOMs intact bilaterally Neck: Neck: Yes normal visual inspection, Yes full ROM and Yes no lymphadenopathy Lymphatic: no lymphadenopathy noted Chest: Chest palpation & inspection: normal inspection of the chest Resp: Effort & Inspection: normal respiratory effort and able to speak in complete sentences Auscultation: clear to auscultation bilaterally, no crackles, no rales, no rhonchi and no wheezes Cardio: Rate: regular rate Rhythm: regular rhythm Heart sounds: S1 normal heart sound present and S2 normal heart sound present GI: Other: Abdomen is soft, nontender, nondistended Inspection: Yes normal to inspection Skin: General skin exam: no rashes or lesions noted Trauma: no lacerations or abrasions Wounds: no wounds Neuro: General: patient oriented x3 and moves all extremities Cranial nerves: Yes Equal, round and reactive pupils present Extrem: General: Yes normal to inspection Right upper extremity: normal to inspection Left upper extremity: normal to inspection Right lower extremity: normal to inspection Left lower extremity: normal to inspection Psych: Appearance: disheveled Mental Status: mental status grossly normal Speech and movement: Pressured speech present and Restless speech present A ffect: Anxious affect present Attitude: Guarded attititude/behavior present and Avoids eye contact (attititude/behavior) Thought content: Normal thought content present Insight: Poor insight present (Psych) Judgement: Poor judgement present (Psych) Course Reevaluation(s) Reevaluation #1: Blood work revealing no leukocytosis, stable H&H, chemistry with no significant electrolyte derangements. Urine without evidence of infection. Positive opiates, methadone, and fentanyl as well as cocaine. Alcohol level 49. Patient at this time is medically cleared. Patient placed in physician observation pending care team consult and disposition. Time: 09:33 Reevaluation #2: Care team consultation performed, they are recommending dual diagnosis, bed search initiated. Will continue to monitor. Time: 12:01 Medications Administered Generic Name Dose Route Start Last Admin Trade Name Freq PRN Reason Stop Dose Admin Nicotine Polacrilex 4 mg 01/22/24 12:00 01/22/24 14:18 Nicotine Polacrilex Lozenge 4 Mg Lozenge BUCCAL 4 mg 6XD JULIA Administration Discontinued Medications Generic Name Dose Route Start Last Admin Trade Name Freq PRN Reason Stop Dose Admin Methadone HCl 45 mg 01/22/24 08:39 01/22/24 08:47 Methadone Hcl 20 Mg/2 Ml Oral.Conc PO 01/22/24 08:40 45 mg ONCE ONE Administration Nicotine Polacrilex 4 mg 01/22/24 09:43 01/22/24 09:45 Nicotine Polacrilex Lozenge 4 Mg Lozenge BUCCAL 01/22/24 09:44 4 mg ONCE ONE Administration Medical Decision Making Medical Decision Making MDM Narrative: This is a 48-year-old male, with a history of polysubstance abuse, MDD, PTSD, and ADHD, who presents emergency department with complaints of increased depression for the last 2 months. Reporting vague homicidal or suicidal thoughts during triage. He typically takes Effexor, gabapentin and Adderall which he has been without for 2 months due to psychiatrist taking blood pressure and advising patient to not take his medications if his blood pressure is too elevated. On arrival, vital signs within normal limits. He is speaking full sentences under no acute distress. He has no physical ailments. He states that he would like to speak to someone to manage his medications better. He reported suicidality and homicidality during triage, he reports none during my evaluation. He is homeless. He uses heroin and crack daily. Also drinks alcohol. No known history of alcohol withdrawal. No other complaints or concerns at this time. Plan: Labs, UA, U tox, care team consult Differential Diagnosis Differential Diagnoses: The differential diagnosis associated with the presentation includes Depression, anxiety, polysubstance abuse Lab Data MDM Lab Attestation statement: I reviewed the patient's lab results. No leukocytosis, stable H&H, chemistry with no significant electrolyte derangements. Urine with hematuria and rbc's, does not appear to be infected. U tox positive for opiates, methadone, fentanyl, and cocaine 01/22/24 05:43 01/22/24 05:43 Labs: Lab Results 01/22/24 01/22/24 Range/Units 05:43 08:24 WBC 5.2 (4.8-10.8) X10*3/uL RBC 3.69 L (4.60-5.80) X10*6/uL Hgb 11.8 L (14.0-18.0) g/dl Hct 34.7 L (42.0-52.0) % MCV 94.0 (80.0-98.0) fL MCH 32.0 (27.0-33.0) pg MCHC 34.0 (31.0-36.0) g/dl RDW 15.0 (11.0-16.0) % Plt Count 258 (160-400) X10*3/uL MPV 10.5 (9.4-12.4) fL Immature Gran % (Auto) 0.2 (0.0-0.4) % Neut % (Auto) 59.1 (45-73) % Lymph % (Auto) 26.1 (20-40) % [place] % (Auto) 9.9 (2-11) % Eos % (Auto) 4.1 H (0-4) % Baso % (Auto) 0.6 (0-2) % Lymph # (Auto) 1.4 (1.2-4.9) X10*3/uL [place] # (Auto) 0.5 (0.1-1.2) X10*3/uL Eos # (Auto) 0.2 (0.0-0.4) X10*3/uL Baso # (Auto) 0.0 (0.0-0.2) X10*3/uL Abs Immat Gran (auto) 0.01 (0.00-0.03) X10*3/uL Absolute Neuts (auto) 3.1 (2.0-8.3) x10*3/uL Absolute Nucleated RBC 0.000 (0.0-0.012) X10*3/uL Nucleated RBC % (auto) 0.0 (0.0-0.2) /100WBC Sodium 141 (135-145) mmol/L Potassium 3.4 (3.3-5.1) mmol/L Chloride 111 H (96-108) mmol/L Carbon Dioxide 23 (22-29) mmol/L Anion Gap 10 L (12-20) BUN 18 H (9-16) mg/dL Creatinine 0.75 (0.5-1.4) mg/dL Estim Creat Clear Calc 103.2 Estimated GFR > 60 Random Glucose 117 H (60-115) mg/dL Calcium 9.0 (8.4-10.2) mg/dL Total Bilirubin 0.3 (0.0-1.0) mg/dL AST 30 (5-37) U/L ALT 31 (0-40) U/L Alkaline Phosphatase 104 (39-117) U/L Total Protein 7.5 (6.5-8.0) g/dL Albumin 3.6 (3.5-5.0) g/dL Urine Color Yellow Urine Appearance Clear Urine pH 5.5 (5.0-9.0) Ur Specific [place] 1.020 (1.005-1.025) Urine Protein Negative (Neg-Trace) mg/dL Urine Glucose (UA) Negative (Negative) mg/dL Urine Ketones Negative (Negative) mg/dL Urine Blood Small (1+) H (Negative) Urine Nitrite Negative (Negative) Ur Leukocyte Esterase Negative (Negative) Urine RBC 6-10 H (0-2) /HPF Urine WBC 0-5 (0-5) /HPF Ur Squamous Epith Cells 0-2 (0-2) /HPF Urine Bacteria None Seen (None Seen) Hyaline Casts 0-2 (0-2) /LPF Salicylates < 5.0 L (15-30) mg/dL Urine Opiates Screen POSITIVE H (Not Detect) Ur Buprenorphine Scrn Not Detected (Not Detect) ng/mL Ur Oxycodone Screen Not Detected (Not Detect) ng/mL Urine Methadone Screen Positive H (Not Detect) ng/mL Urine Fentanyl Screen POSITIVE H (Not Detect) Acetaminophen < 3 (<30) mcg/mL Ur Barbiturates Screen Not Detected (Not Detect) Ur Phencyclidine Scrn Not Detected (Not Detect) Ur Amphetamines Screen Not Detected (Not Detect) U Benzodiazepines Scrn Not Detected (Not Detect) Urine Cocaine Screen POSITIVE H (Not Detect) U Marijuana (THC) Screen Not Detected (Not Detect) Ethyl Alcohol 49 mg/dL Discharge Plan Discharge Clinical Impression: Post traumatic stress disorder (PTSD), Opioid use disorder, Depression Patient Disposition: Still a Patient Additional Instructions: Please continue all at-home medications as prescribed. If any new or worsening symptoms occur including but not limited to chest pain, shortness breath, increased thoughts of harming herself or others, please seek emergent care. Prescriptions: No Action methadone [Methadone Intensol] 10 mg/mL Concentrate 45 mg PO DAILY Interventions: [place]-Suicide Risk Severity Scale Last Done: 01/22/24 08:04 Print Language: Kyrgyz
[2024-01-22 08:34] LABS: Appearance Urine Clear; Color Urine Yellow; Glucose Urine UA Negative (Negative); Leukocyte Esterase Urine Negative (Negative); Nitrite Urine Negative (Negative); PH 5.5 (5.0-9.0); UMIC TRIGGER UACC YES; Urine Blood Small (1+) (Negative); Urine Ketones Negative (Negative); Urine Protein Negative (Neg-Trace)
[2024-01-22 08:39] LABS: Bacteria Urine None Seen (None Seen); Hyaline Casts Urine 0-2 /LPF (0-2); Squamous Epithelial Cell Urine 0-2 /HPF (0-2); WBC Urine 0-5 /HPF (0-5)
[2024-01-22 08:45] LABS: Amphetamine Screen Urine Not Detected (Not Detect); Barbiturates, Urine Not Detected (Not Detect); Benzodiazepines Screen Urine Not Detected (Not Detect); Buprenorphine Scr Not Detected (Not Detect); Cannabinoid Screen Urine Not Detected (Not Detect); Cocaine Screen Urine POSITIVE (Not Detect); Fentanyl, urine POSITIVE (Not Detect); Methadone Screen, Urine Positive (Not Detect); Opiate Screen Urine POSITIVE (Not Detect); Oxycodone Screen Urine Not Detected (Not Detect); Phencyclidine Screen Urine Not Detected (Not Detect)
[2024-01-22] MEDS: methADONE HCl 20 MG/2 ML ORAL.CONC 45 MG PO (08:47)
--- NOTE | 2024-01-22 09:42 | PC.NURSE ---
Assumed care of patient at 0940, patient appears to be in no apparent distress. Calm and cooperative, offering no complaints at this time, requesting nicotine lozenge. MD Rubio aware
[2024-01-22] MEDS: Nicotine Polacrilex Lozenge 4 MG LOZENGE BUCCAL ×5 (09:45→20:57)
[2024-01-22 10:37] VITALS: RESP 16
--- NOTE | 2024-01-22 16:11 | PHA.MEDREC ---
Pharmacy Consult ? Medication Reconciliation Pharmacy has completed the medication reconciliation. OTHER THAN METHADONE, PT REPORTS NO HOME MEDICATIONS
[2024-01-22 17:34] VITALS: BP 140/93; PULSE 76; RESP 18; TEMP 36.8; O2SAT 98
[2024-01-23 05:24] VITALS: BP 138/95; PULSE 65; RESP 17; TEMP 36.8; O2SAT 99
[2024-01-23] MEDS: Nicotine Polacrilex Lozenge 4 MG LOZENGE BUCCAL ×8 (07:19→23:36)
--- NOTE | 2024-01-23 08:10 | MHC.EDTECH ---
patient ambulated to bathroom to shower AM care done .RN aware
--- NOTE | 2024-01-23 08:13 | ECG_ITS ---
Test Reason : checking for prolong qt Blood Pressure : / mmHG Vent. Rate : 062 BPM Atrial Rate : 062 BPM P-R Int : 132 ms QRS Dur : 092 ms QT Int : 392 ms P-R-T Axes : 046 006 033 degrees QTc Int : 397 ms Normal sinus rhythm Minimal voltage criteria for LVH, may be normal variant ( Sokolow-Phelps ) Borderline ECG When compared with ECG of 12-DEC-2019 22:36, No significant change was found Referred By: Generic ED Physician Electronically Signed By:Jeremy Miller
--- NOTE | 2024-01-23 08:18 | MHC.CARE ---
Statewide dual diagnosis bed search was conducted for this individual, however, there are no beds available today. Bed search is now exhausted and will continue tomorrow if deemed appropriate.
[2024-01-23] MEDS: methADONE HCl 20 MG/2 ML ORAL.CONC 30 MG PO (09:58)
[2024-01-23] MEDS: Gabapentin 300 MG CAPSULE PO (11:40)
--- NOTE | 2024-01-23 19:08 | PC.NURSE ---
report received from Walter MCKENZIE, assume care of pt at this time
--- NOTE | 2024-01-23 19:52 | PC.NURSE ---
pt asked for something to eat and something to drink, pt given sandwich and zoran george
[2024-01-24] MEDS: Nicotine Polacrilex Lozenge 4 MG LOZENGE BUCCAL ×7 (07:09→22:51)
[2024-01-24 07:11] VITALS: BP 137/86; PULSE 68; RESP 16; O2SAT 97
--- NOTE | 2024-01-24 07:55 | PC.NURSE ---
Assumed care of patient at 0645, patient appears to be in no apparent distress this am, calm and cooperative, alert and oriented x4. Patient verbalizes understanding of plan of care for inpatient bedsearch
[2024-01-24] MEDS: methADONE HCl 20 MG/2 ML ORAL.CONC 30 MG PO (08:49)
[2024-01-24] MEDS: Ibuprofen 600 MG TABLET PO (09:11)
[2024-01-24] MEDS: Nicotine Polacrilex 2 MG GUM 4 MG BUCCAL (13:12)
[2024-01-24 13:30] VITALS: BP 143/92; PULSE 80; RESP 19; TEMP 36.6; O2SAT 97
[2024-01-24 13:54] VITALS: BMI 21.8
[2024-01-24] MEDS: Flu Vacc TS2024-25(6mos up)/PF 0.5 ML SYRINGE IM (14:30)
--- NOTE | 2024-01-24 14:51 | PC.ADMIT ---
Rm is a 48 y/o male admitted to with depression and SI without a plan from the [facility] at 1325 this afternoon. He reports having been here on M5 before and has a hx of IPLOC with at least 2 previous suicide attempts in past 10 years. Per crisis assessment pt stopped taking his prescribed medications 2 months ago when his psychiatrist went on maternity leave (he did not like the provider covering). He has also been homeless for past 2 months and has been struggling with increased depression, anxiety, and polysubstance use. CARE team assessment report includes medical dx of DM2, MDD, Multiple Sclerosis, and PTSD. Pt reports drinking 9 tall beers per day everyday for past 2 months, uses heroin by injection and sniffing 2 x's week and cocaine 1-2x's daily. While in ED past 2 days CIWA scores <5 and pt denies symptoms of alcohol withdrawal. Pt safety and skin check performed with another RN and unremarkable. He was cooperative with admission process and signed a CV with Dr. Berg. Pt takes Methadone 45 mg daily and dose verified with [facility] while in the ED. He presently denies SI/HI/AVH. He presented as anxious and talkative, pressured in speech, and fidgety. He reports he feels numb because he has been drunk everyday for the past 60 days so I don't even know myself now CIWA score 2 on admission to and no complaints of withdrawal only feeling anxious about being here. He was accepting of Flu vaccine and addiction medicine consult. All of his personal belongings are in [facility]. Declined orientation to unit as he has been here before. He had lunch shortly after arrival and attended the group already in progress. On q15 min safety checks and will continue to monitor.
--- NOTE | 2024-01-24 15:54 | MHC.RECOVRN ---
AUDIT-C Brief Intervention Pt had positive screen for unhealthy alcohol use on admission, subsequently met with t/w to discuss alcohol use and recovery supports/options. This internal communications writer met with patient to discuss current alcohol use and concerns related to increased risk of alcohol related problems.? Pt reports 6-9 24 ounce beers daily x 2 months. Discussed how alcohol use has impacted health, including negative impact on mental health. Withdrawal History: reports one withdrawal seizure in his 20s Treatment History: numerous inpatient admissions Supports:?family/friends Discussed risk reduction strategies including drinking below the recommended limit. Provided pt with written resources including information on inpatient and outpatient treatment, PETEY, harm reduction, and recovery coaching. Pt plans to continue with inpatient treatment. Pt provided with t/w contact information if questions or concerns arise. Denies other questions or concerns at this time.?
--- NOTE | 2024-01-24 15:56 | MHC.RECOVRN ---
Met with pt on M5 after consult received for AUD/OUD/StUD. Pt sitting in bed, awake, alert, easily engages in conversation, appears anxious. Completed AUDIT C brief intervention. Pt reports heroin/fentanyl use, a few bags a week, IV or IN. Also reports cocaine use, INH, unable to quantify how much. As documented in the AUDIT C, pt reports 6-9 24 ounce beers daily. Pt reports he has been using these substances x 2 months. Pt reports his longest period in recovery was 4 years, attributes being on the correct medications to period of recovery, including 150 mg methadone. Currently, pt is receiving 30 mg methadone. Pt had been receiving 45 mg at his OTP ([facility]), however, last dose was 01/17 so dose was reduced while pt was in the ED. Pt was not aware his dose was reduced, however, would like to stay at 30 mg. Pt reports he is looking forward to getting back on his medications and feeling more stable overall. Pt denies questions or concerns at this time.
[2024-01-24 17:58] VITALS: BP 131/84; PULSE 73; RESP 18; TEMP 36.6; O2SAT 99
[2024-01-24] MEDS: hydrOXYzine HCL 25 MG TABLET PO (21:34)
[2024-01-25] MEDS: Nicotine Polacrilex Lozenge 4 MG LOZENGE BUCCAL ×8 (04:58→23:00)
[2024-01-25] MEDS: methADONE HCl 20 MG/2 ML ORAL.CONC 30 MG PO (07:46)
[2024-01-25 08:00] VITALS: BP 124/82; PULSE 61; RESP 16; TEMP 36.6; O2SAT 98
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
[2024-01-25 09:06] LABS: Estimated Average Glucose 100 mg/dL; Hemoglobin A1C 112.8903 umol/L; Hemoglobin A1c % 5.1 % (<6.0); Total Hemoglobin (HGBA1C) 3495.5473 umol/L
[2024-01-25 09:28] LABS: Cholesterol 175 mg/dL (<200); HDL Cholesterol 83 mg/dL (>40); LDL Cholesterol Calculated 82 mg/dL (<100); Triglycerides 54 mg/dL (<150)
[2024-01-25 09:43] LABS: TSH reflex Free T4 2.14 uIU/mL (0.32-4.0)
[2024-01-25] MEDS: Dextroamphetamine/Amphetamine XR 10 MG CAP.ER.24H 30 MG PO (11:01)
[2024-01-25] MEDS: methADONE HCl 20 MG/2 ML ORAL.CONC 5 MG PO (12:58)
[2024-01-25] MEDS: Venlafaxine HCl ER 37.5 MG CAP.ER.24H PO (12:59)
[2024-01-25] MEDS: Gabapentin 300 MG CAPSULE PO ×2 (14:22→20:48)
[2024-01-25 20:00] VITALS: BP 134/92; PULSE 99; RESP 16; TEMP 37; O2SAT 98
[2024-01-25] MEDS: hydrOXYzine HCL 25 MG TABLET PO (20:48)
[2024-01-25] MEDS: methADONE HCl 20 MG/2 ML ORAL.CONC 10 MG PO (20:48)
[2024-01-25] MEDS: Magnesium Hydrox/Alum Hydrox 30 ML ORAL.SUSP PO (23:03)
[2024-01-26] MEDS: Nicotine Polacrilex Lozenge 4 MG LOZENGE BUCCAL ×9 (00:59→22:21)
[2024-01-26 01:11] VITALS: BP 119/81
[2024-01-26] MEDS: cloNIDine HCL 0.1 MG TABLET PO ×2 (01:11→20:10)
[2024-01-26 07:00] VITALS: BMI 21.7
[2024-01-26] MEDS: methADONE HCl 20 MG/2 ML ORAL.CONC 40 MG PO (07:50)
[2024-01-26 08:00] VITALS: BP 129/84; PULSE 97; RESP 18; TEMP 36.7; O2SAT 100
[2024-01-26] MEDS: Venlafaxine HCl ER 37.5 MG CAP.ER.24H PO (08:18)
[2024-01-26] MEDS: Dextroamphetamine/Amphetamine XR 10 MG CAP.ER.24H 30 MG PO (08:18)
[2024-01-26] MEDS: Gabapentin 300 MG CAPSULE PO ×3 (08:18→20:09)
--- NOTE | 2024-01-26 13:18 | HO.PSYCHPN ---
Subjective Subjective Date of Service: 01/26/24 Reason For Visit: depression/si Subjective Notes: Conditional Voluntary Interim History: Reviewed with Dr. Abreu. Active on unit, social with peers. Presents with rapid and pressured speech. Pt reports feeling great ; pt stated, I'm not having withdrawal symptoms anymore. I slept well and I knew once I started my meds I'd feel better . Per nursing, pt slept 6 hours last night. denies SI/HI/VH/AH. Medication Compliance: Yes Side effects from medications: No Attending Groups: Yes Review of Systems Constitutional: Reports as per HPI Eyes: Reports as per HPI Reports as per HPI Cardiovascular: Reports as per HPI Respiratory: Reports as per HPI Gastrointestinal: Reports as per HPI Genitourinary: Reports as per HPI Musculoskeletal: Reports as per HPI Skin/Breast: Reports as per HPI Reports as per HPI Psychiatric: Reports as per HPI Endocrine: Reports as per HPI Hematologic/Lymphatic: Reports as per HPI Allergic/Immunologic: Reports as per HPI Mental Status Exam Mental Status Exam Patient Appearance: Well Grooomed Patient Orientation: Person, Place, Time and Situation Level of Consciousness: Awake and Alert Patient Behavior: Talkative and Cooperative Mood Description: Cheerful Affect Description: Cheerful Ability to Follow Directions: Good Speech Pattern: Rapid and Pressured Diagnostics Vital Signs (24Hr): Vital Signs - 24 hr 01/25/24 20:00 01/26/24 01:11 01/26/24 08:00 Temperature 98.6 F 98.0 F Pulse Rate 99 97 Respiratory Rate 16 18 Blood Pressure 134/92 H 119/81 129/84 Pulse Oximetry 98 100 Oxygen Delivery Method Room Air Room Air BMI result Body Mass Index 21.8 Labs 01/22/24 05:43 01/22/24 05:43 Labs: Laboratory Results - last 48 hr 01/25/24 08:33 Estimat Average Glucose 100 Hemoglobin A1c % 5.1 Triglycerides 54 Cholesterol 175 LDL Cholesterol, Calc 82 HDL Cholesterol 83 TSH 2.14 Medications Medications Current Medications Acetaminophen (Acetaminophen 325 Mg Tablet) 650 mg PO Q6H PRN PRN Reason: Headache/Pain Mild Scale (1-3) Al Hydroxide/Mg Hydroxide (Magnesium Hydrox/Alum Hydrox 30 Ml Oral.Susp) 30 ml PO Q6H PRN PRN Reason: Heartburn/Nausea Last Admin: 01/25/24 23:03 Dose: 30 ml Amphetamine/Dextroamphetamine (Dextroamphetamine/Amphetamine Xr 10 Mg Cap.Er.24h) 30 mg PO DAILY [facility] Last Admin: 01/26/24 08:18 Dose: 30 mg Clonidine HCl (Clonidine Hcl 0.1 Mg Tablet) 0.1 mg PO Q4H PRN; Protocol PRN Reason: anxiety Last Admin: 01/26/24 01:11 Dose: 0.1 mg Gabapentin (Gabapentin 300 Mg Capsule) 300 mg PO TID [facility] Last Admin: 01/26/24 08:18 Dose: 300 mg Hydroxyzine HCl (Hydroxyzine Hcl 25 Mg Tablet) 25 mg PO Q6H PRN PRN Reason: Anxiety Last Admin: 01/25/24 20:48 Dose: 25 mg Magnesium Hydroxide (Milk Of Magnesia 30 Ml Oral.Susp) 30 ml PO DAILY PRN PRN Reason: Constipation Methadone HCl (Methadone Hcl 20 Mg/2 Ml Oral.Conc) 40 mg PO DAILY [facility] Last Admin: 01/26/24 07:50 Dose: 40 mg Nicotine Polacrilex (Nicotine Polacrilex Lozenge 4 Mg Lozenge) 4 mg BUCCAL Q2H PRN PRN Reason: Nicotine Cravings Last Admin: 01/26/24 12:45 Dose: 4 mg Olanzapine (Olanzapine 5 Mg Tablet) 5 mg PO TID PRN PRN Reason: agitation Trazodone HCl (Trazodone Hcl 50 Mg Tablet) 50 mg PO BEDTIME MRX1 PRN PRN Reason: Insomnia Venlafaxine HCl (Venlafaxine Hcl Er 37.5 Mg Cap.Er.24h) 37.5 mg PO DAILY [facility] Last Admin: 01/26/24 08:18 Dose: 37.5 mg Allergies Allergies Allergy/AdvReac Type Severity Reaction Status Date / Time No Known Allergies Allergy Verified 01/22/24 05:01 Assessment & Plan Assessment & Plan (1) Major depressive disorder, recurrent severe without psychotic features: Status: Acute Code(s): F33.2 - Major depressive disorder, recurrent severe without psychotic features (2) Post traumatic stress disorder (PTSD): Status: Acute Code(s): F43.10 - Post-traumatic stress disorder, unspecified (3) ADHD (attention deficit hyperactivity disorder): Status: Acute Code(s): F90.9 - Attention-deficit hyperactivity disorder, unspecified type (4) Opioid use disorder: Status: Acute Code(s): F11.99 - Opioid use, unspecified with unspecified opioid-induced disorder (5) Alcohol use disorder: Status: Acute Code(s): F10.90 - Alcohol use, unspecified, uncomplicated (6) Cocaine use disorder: Status: Acute Code(s): F14.10 - Cocaine abuse, uncomplicated Plan Patient is a 48-year-old male with history of depression, PTSD alcohol use disorder and cocaine/opiate use disorder, who presents for worsening depression with SI in the face of being off medications and relapse. Patient reports that he was sober for several months, going to AA meetings, taking his medications. His provider went on maternity leave and the interim provider started insisting patient submit to blood pressure checks for Adderall, something he had beginning for years, refusing to give it to him if his blood pressure was above certain parameters. Patient felt challenged by this and noted that the worry about not getting Adderall, would spike his blood pressure. In frustration patient did not return for follow-up. Off medications patient said I started making bad decisions and left the apartment he was living in and started wandering the streets; he quickly relapsed with alcohol, cocaine, opiates. 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 Patient denies history of manic episodes or behaviors. Formulation/clinical reasoning: Patient reports being stable on past regimen of Adderall, Effexor, gabapentin and wants to get back on this. Strongly considering going to a program to help get back to being sober. Mildly pressured speech and a little hypomanic but seems to be more likely due to ADHD symptoms then actual colleen PLAN: CV Q15 min checks restart Adderall XR 30 mg daily (corroborates with mass Pat) Restart Effexor XL 37.5; patient said he did well on this medication in the past Restart gabapentin 300 mg t.i.d.; been on in the past for anxiety Add clonidine 0.1 mg q.4 p.r.n. for anxiety Titrate methadone to 45 mg; patient reports doing well on this dose in the past DC CIWA; patient not scoring and says withdrawal is mostly done, completed in the ED Currently BP is grossly WNL with DBP intermittently elevated; will monitor 01/25: Active on unit, social with peers. Presents with rapid and pressured speech. Pt reports feeling great ; pt stated, I'm not having withdrawal symptoms anymore. I slept well and I knew once I started my meds I'd feel better . Per nursing, pt slept 6 hours last night. denies SI/HI/VH/AH. Continue current tx plan. Patient educated on: diagnosis and medication risk/benefits Reason for continued inpatient stay Substantial Risk for: med/psych decompensation Time Spent With Patient Time: Total time managing care of this patient today _20___ minutes.
[2024-01-26 20:00] VITALS: BP 134/84; PULSE 110; RESP 18; TEMP 36; O2SAT 95
[2024-01-27] MEDS: Nicotine Polacrilex Lozenge 4 MG LOZENGE BUCCAL ×8 (00:39→22:42)
[2024-01-27] MEDS: Acetaminophen 325 MG TABLET 650 MG PO ×2 (05:24→22:42)
[2024-01-27] MEDS: methADONE HCl 20 MG/2 ML ORAL.CONC 40 MG PO (07:55)
[2024-01-27 08:18] VITALS: BP 107/59; PULSE 68; TEMP 36.3; O2SAT 96
[2024-01-27] MEDS: Dextroamphetamine/Amphetamine XR 10 MG CAP.ER.24H 30 MG PO ×2 (09:01→12:51)
[2024-01-27] MEDS: Venlafaxine HCl ER 37.5 MG CAP.ER.24H PO (09:02)
[2024-01-27] MEDS: Gabapentin 300 MG CAPSULE PO ×3 (09:02→20:35)
--- NOTE | 2024-01-27 09:57 | HO.PSYCHPN ---
Subjective Subjective Date of Service: 01/27/24 Reason For Visit: depression/si Interim History: Met with patient; discussed with team Patient reports that he is feeling better, mood is better; reports he is sleeping well. Again discussed what seems to racebook writer to be hypomanic behaviors however on review of history, patient denies any discrete manic episodes and again reiterates that he screen for this in order to receive T MS. Patient says that perhaps his Adderall is wearing off and is ADHD symptoms are surfacing and asks if he can have an afternoon Adderall dose to which racebook writer agrees. -no si add afternoon adderal XL so change to BID@0900,1300 increase effexor XL to 75mg (used to be on 150mg) Mental Status Exam Mental Status Exam Narrative: Pt is alert and oriented; behavior is a little hyperactive but cooperative, friendly; patient is not in distress; dressed in hospital attire, disheveled; mood is described as ok..better... and affect congruent; eye contact appropriate; Speech is verbose, mildly pressured, but normal volume and prosody; mild psychomotor agitation present; thought process is organized and goal directed; Thought content is on tx; otherwise pertinent to relevant topics and without any delusional content, paranoid ideations or grandiosity; denies any SI/HI. There is no evidence of perceptual disturbance. Patients insight and judgment impaired but improving. Diagnostics Vital Signs (24Hr): Vital Signs - 24 hr 01/26/24 20:00 01/27/24 08:18 Temperature 96.8 F 97.4 F Pulse Rate 110 H 68 Respiratory Rate 18 Blood Pressure 134/84 107/59 L Pulse Oximetry 95 96 Oxygen Delivery Method Room Air Room Air BMI result Body Mass Index 21.7 Labs 01/22/24 05:43 01/22/24 05:43 Medications Medications Current Medications Acetaminophen (Acetaminophen 325 Mg Tablet) 650 mg PO Q6H PRN PRN Reason: Headache/Pain Mild Scale (1-3) Last Admin: 01/27/24 05:24 Dose: 650 mg Al Hydroxide/Mg Hydroxide (Magnesium Hydrox/Alum Hydrox 30 Ml Oral.Susp) 30 ml PO Q6H PRN PRN Reason: Heartburn/Nausea Last Admin: 01/25/24 23:03 Dose: 30 ml Amphetamine/Dextroamphetamine (Dextroamphetamine/Amphetamine Xr 10 Mg Cap.Er.24h) 30 mg PO DAILY [facility] Last Admin: 01/27/24 09:01 Dose: 30 mg Clonidine HCl (Clonidine Hcl 0.1 Mg Tablet) 0.1 mg PO Q4H PRN; Protocol PRN Reason: anxiety Last Admin: 01/26/24 20:10 Dose: 0.1 mg Gabapentin (Gabapentin 300 Mg Capsule) 300 mg PO TID REPLACED BY [facility] Last Admin: 01/27/24 09:02 Dose: 300 mg Hydroxyzine HCl (Hydroxyzine Hcl 25 Mg Tablet) 25 mg PO Q6H PRN PRN Reason: Anxiety Last Admin: 01/25/24 20:48 Dose: 25 mg Magnesium Hydroxide (Milk Of Magnesia 30 Ml Oral.Susp) 30 ml PO DAILY PRN PRN Reason: Constipation Methadone HCl (Methadone Hcl 20 Mg/2 Ml Oral.Conc) 40 mg PO DAILY [facility] Last Admin: 01/27/24 07:55 Dose: 40 mg Nicotine Polacrilex (Nicotine Polacrilex Lozenge 4 Mg Lozenge) 4 mg BUCCAL Q2H PRN PRN Reason: Nicotine Cravings Last Admin: 01/27/24 09:01 Dose: 4 mg Olanzapine (Olanzapine 5 Mg Tablet) 5 mg PO TID PRN PRN Reason: agitation Trazodone HCl (Trazodone Hcl 50 Mg Tablet) 50 mg PO BEDTIME MRX1 PRN PRN Reason: Insomnia Venlafaxine HCl (Venlafaxine Hcl Er 37.5 Mg Cap.Er.24h) 37.5 mg PO DAILY [facility] Last Admin: 01/27/24 09:02 Dose: 37.5 mg Allergies Allergies Allergy/AdvReac Type Severity Reaction Status Date / Time No Known Allergies Allergy Verified 01/22/24 05:01 Assessment & Plan Assessment & Plan (1) Major depressive disorder, recurrent severe without psychotic features: Status: Acute Code(s): F33.2 - Major depressive disorder, recurrent severe without psychotic features (2) Post traumatic stress disorder (PTSD): Status: Acute Code(s): F43.10 - Post-traumatic stress disorder, unspecified (3) ADHD (attention deficit hyperactivity disorder): Status: Acute Code(s): F90.9 - Attention-deficit hyperactivity disorder, unspecified type (4) Opioid use disorder: Status: Acute Code(s): F11.99 - Opioid use, unspecified with unspecified opioid-induced disorder (5) Alcohol use disorder: Status: Acute Code(s): F10.90 - Alcohol use, unspecified, uncomplicated (6) Cocaine use disorder: Status: Acute Code(s): F14.10 - Cocaine abuse, uncomplicated Plan Patient is a 48-year-old male with history of depression, PTSD alcohol use disorder and cocaine/opiate use disorder, who presents for worsening depression with SI in the face of being off medications and relapse. Patient reports that he was sober for several months, going to AA meetings, taking his medications. His provider went on maternity leave and the interim provider started insisting patient submit to blood pressure checks for Adderall, something he had beginning for years, refusing to give it to him if his blood pressure was above certain parameters. Patient felt challenged by this and noted that the worry about not getting Adderall, would spike his blood pressure. In frustration patient did not return for follow-up. Off medications patient said I started making bad decisions and left the apartment he was living in and started wandering the streets; he quickly relapsed with alcohol, cocaine, opiates. 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 Patient denies history of manic episodes or behaviors. Formulation/clinical reasoning: Patient reports being stable on past regimen of Adderall, Effexor, gabapentin and wants to get back on this. Strongly considering going to a program to help get back to being sober. Mildly pressured speech and a little hypomanic but seems to be more likely due to ADHD symptoms then actual colleen Hospital course: 01/25: Active on unit, social with peers. Presents with rapid and pressured speech. Pt reports feeling great ; pt stated, I'm not having withdrawal symptoms anymore. I slept well and I knew once I started my meds I'd feel better . Per nursing, pt slept 6 hours last night. denies SI/HI/VH/AH. Continue current tx plan. 01/26 Patient restarted on home medication. Patient reports that he is feeling better, mood is better; reports he is sleeping well. Again discussed what seems to racebook writer to be hypomanic behaviors however on review of history, patient denies any discrete manic episodes and again reiterates that he screen for this in order to receive T MS. Patient says that perhaps his Adderall is wearing off and is ADHD symptoms are surfacing and asks if he can have an afternoon Adderall dose to which racebook writer agrees. -no si PLAN: CV Q15 min checks Adderall XR 30 mg daily (corroborates with mass Pat) (will add afternoon adderal XL so change to BID@0900,1300) increase effexor XL to 75mg (used to be on 150mg) patient said he did well on this medication in the past Restarted gabapentin 300 mg t.i.d.; been on in the past for anxiety Add clonidine 0.1 mg q.4 p.r.n. for anxiety Titrate methadone to 45 mg; patient reports doing well on this dose in the past DC ANKIT; patient not scoring and says withdrawal is mostly done, completed in the ED Currently BP is grossly WNL with DBP intermittently elevated; will monitor Patient educated on: diagnosis, medication risk/benefits and substance abuse Informed Consent: understands and further education needed Reason for continued inpatient stay Substantial Risk for: rapid decompensation Time Spent With Patient Time: Total time managing care of this patient today ____ minutes.
[2024-01-27 20:00] VITALS: BP 129/72; PULSE 112; RESP 18; TEMP 36.9; O2SAT 98
[2024-01-27] MEDS: cloNIDine HCL 0.1 MG TABLET PO (20:35)
[2024-01-28] MEDS: Nicotine Polacrilex Lozenge 4 MG LOZENGE BUCCAL ×6 (01:17→21:58)
[2024-01-28 08:00] VITALS: BP 129/88; PULSE 76; RESP 18; TEMP 36.6; O2SAT 99
[2024-01-28] MEDS: methADONE HCl 20 MG/2 ML ORAL.CONC 40 MG PO (08:02)
[2024-01-28] MEDS: Dextroamphetamine/Amphetamine XR 10 MG CAP.ER.24H 30 MG PO ×2 (09:27→12:13)
[2024-01-28] MEDS: Venlafaxine HCl ER 75 MG CAP.ER.24H PO (09:27)
[2024-01-28] MEDS: Gabapentin 300 MG CAPSULE PO ×3 (09:28→21:33)
--- NOTE | 2024-01-28 11:01 | HO.PSYCHPN ---
Subjective Subjective Date of Service: 01/28/24 Reason For Visit: depression/si Interim History: Patient reports he is feeling good. He is content. I am feeling great. Feels recent medication changes are helpful. He seems somewhat euphoric. Denies side effects. Review of Systems Review of Systems Yes all other systems are reviewed and are negative Constitutional: Reports as per HPI Eyes: Reports as per HPI Reports as per HPI Cardiovascular: Reports as per HPI Respiratory: Reports as per HPI Gastrointestinal: Reports as per HPI Genitourinary: Reports as per HPI Musculoskeletal: Reports as per HPI Skin/Breast: Reports as per HPI Reports as per HPI Psychiatric: Reports as per HPI Endocrine: Reports as per HPI Hematologic/Lymphatic: Reports as per HPI Allergic/Immunologic: Reports as per HPI Mental Status Exam Mental Status Exam Narrative: Pt is alert and oriented; behavior is hyperactive but cooperative, friendly; patient is not in distress; dressed in hospital attire, disheveled; mood is described as feeling great and affect congruent; eye contact appropriate; Speech is verbose, mildly pressured, but normal volume and prosody; mild psychomotor agitation present; thought process is organized and goal directed; Thought content is on tx; otherwise pertinent to relevant topics and without any delusional content, paranoid ideations or grandiosity; denies any SI/HI. There is no evidence of perceptual disturbance. Patients insight and judgment impaired but improving Patient Appearance: Well Grooomed Patient Orientation: Person, Place, Time and Situation Level of Consciousness: Awake and Alert Patient Behavior: Talkative and Cooperative Mood Description: Cheerful Affect Description: Cheerful Ability to Follow Directions: Good Speech Pattern: Rapid and Pressured Diagnostics Vital Signs (24Hr): Vital Signs - 24 hr 01/27/24 20:00 01/28/24 08:00 Temperature 98.5 F 97.8 F Pulse Rate 112 H 76 Respiratory Rate 18 18 Blood Pressure 129/72 129/88 Pulse Oximetry 98 99 Oxygen Delivery Method Room Air Room Air BMI result Body Mass Index 21.7 Labs 01/22/24 05:43 01/22/24 05:43 Medications Medications Current Medications Acetaminophen (Acetaminophen 325 Mg Tablet) 650 mg PO Q6H PRN PRN Reason: Headache/Pain Mild Scale (1-3) Last Admin: 01/27/24 22:42 Dose: 650 mg Al Hydroxide/Mg Hydroxide (Magnesium Hydrox/Alum Hydrox 30 Ml Oral.Susp) 30 ml PO Q6H PRN PRN Reason: Heartburn/Nausea Last Admin: 01/25/24 23:03 Dose: 30 ml Amphetamine/Dextroamphetamine (Dextroamphetamine/Amphetamine Xr 10 Mg Cap.Er.24h) 30 mg PO BID@0900,1300 [facility] Last Admin: 01/28/24 09:27 Dose: 30 mg Clonidine HCl (Clonidine Hcl 0.1 Mg Tablet) 0.1 mg PO Q4H PRN; Protocol PRN Reason: anxiety Last Admin: 01/27/24 20:35 Dose: 0.1 mg Gabapentin (Gabapentin 300 Mg Capsule) 300 mg PO TID [facility] Last Admin: 01/28/24 09:28 Dose: 300 mg Hydroxyzine HCl (Hydroxyzine Hcl 25 Mg Tablet) 25 mg PO Q6H PRN PRN Reason: Anxiety Last Admin: 01/25/24 20:48 Dose: 25 mg Magnesium Hydroxide (Milk Of Magnesia 30 Ml Oral.Susp) 30 ml PO DAILY PRN PRN Reason: Constipation Methadone HCl (Methadone Hcl 20 Mg/2 Ml Oral.Conc) 40 mg PO DAILY [facility] Last Admin: 01/28/24 08:02 Dose: 40 mg Nicotine Polacrilex (Nicotine Polacrilex Lozenge 4 Mg Lozenge) 4 mg BUCCAL Q2H PRN PRN Reason: Nicotine Cravings Last Admin: 01/28/24 05:13 Dose: 4 mg Olanzapine (Olanzapine 5 Mg Tablet) 5 mg PO TID PRN PRN Reason: agitation Trazodone HCl (Trazodone Hcl 50 Mg Tablet) 50 mg PO BEDTIME MRX1 PRN PRN Reason: Insomnia Venlafaxine HCl (Venlafaxine Hcl Er 75 Mg Cap.Er.24h) 75 mg PO DAILY [facility] Last Admin: 01/28/24 09:27 Dose: 75 mg Allergies Allergies Allergy/AdvReac Type Severity Reaction Status Date / Time No Known Allergies Allergy Verified 01/22/24 05:01 Assessment & Plan Assessment & Plan (1) Major depressive disorder, recurrent severe without psychotic features: Status: Acute Code(s): F33.2 - Major depressive disorder, recurrent severe without psychotic features (2) Post traumatic stress disorder (PTSD): Status: Acute Code(s): F43.10 - Post-traumatic stress disorder, unspecified (3) ADHD (attention deficit hyperactivity disorder): Status: Acute Code(s): F90.9 - Attention-deficit hyperactivity disorder, unspecified type (4) Opioid use disorder: Status: Acute Code(s): F11.99 - Opioid use, unspecified with unspecified opioid-induced disorder (5) Alcohol use disorder: Status: Acute Code(s): F10.90 - Alcohol use, unspecified, uncomplicated (6) Cocaine use disorder: Status: Acute Code(s): F14.10 - Cocaine abuse, uncomplicated Plan Patient is a 48-year-old male with history of depression, PTSD alcohol use disorder and cocaine/opiate use disorder, who presents for worsening depression with SI in the face of being off medications and relapse. Patient reports that he was sober for several months, going to AA meetings, taking his medications. His provider went on maternity leave and the interim provider started insisting patient submit to blood pressure checks for Adderall, something he had beginning for years, refusing to give it to him if his blood pressure was above certain parameters. Patient felt challenged by this and noted that the worry about not getting Adderall, would spike his blood pressure. In frustration patient did not return for follow-up. Off medications patient said I started making bad decisions and left the apartment he was living in and started wandering the streets; he quickly relapsed with alcohol, cocaine, opiates. 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 Patient denies history of manic episodes or behaviors. Formulation/clinical reasoning: Patient reports being stable on past regimen of Adderall, Effexor, gabapentin and wants to get back on this. Strongly considering going to a program to help get back to being sober. Mildly pressured speech and a little hypomanic but seems to be more likely due to ADHD symptoms then actual colleen PLAN: CV Q15 min checks restart Adderall XR 30 mg daily (corroborates with mass Pat) Restart Effexor XL 37.5; patient said he did well on this medication in the past Restart gabapentin 300 mg t.i.d.; been on in the past for anxiety Add clonidine 0.1 mg q.4 p.r.n. for anxiety Titrate methadone to 45 mg; patient reports doing well on this dose in the past DC CIWA; patient not scoring and says withdrawal is mostly done, completed in the ED Currently BP is grossly WNL with DBP intermittently elevated; will monitor 01/25: Active on unit, social with peers. Presents with rapid and pressured speech. Pt reports feeling great ; pt stated, I'm not having withdrawal symptoms anymore. I slept well and I knew once I started my meds I'd feel better . Per nursing, pt slept 6 hours last night. denies SI/HI/VH/AH. Continue current tx plan. 01/27: Continue current management and treatment plan. Monitor for hypomania. Reason for continued inpatient stay Substantial Risk for: harm to self, inability to function and rapid decompensation Time Spent With Patient Time: Total time managing care of this patient today ____ minutes.
[2024-01-28 20:00] VITALS: BP 135/95; PULSE 93; TEMP 36.8; O2SAT 100
[2024-01-28 21:58] VITALS: BP 126/83
[2024-01-28] MEDS: cloNIDine HCL 0.1 MG TABLET PO (21:58)
[2024-01-28] MEDS: Acetaminophen 325 MG TABLET 650 MG PO (23:15)
[2024-01-29] MEDS: Nicotine Polacrilex Lozenge 4 MG LOZENGE BUCCAL ×9 (00:03→20:24)
[2024-01-29] MEDS: methADONE HCl 20 MG/2 ML ORAL.CONC 40 MG PO (07:48)
[2024-01-29 07:59] VITALS: BP 112/82; PULSE 83; RESP 17; TEMP 36.8; O2SAT 98
[2024-01-29] MEDS: Dextroamphetamine/Amphetamine XR 10 MG CAP.ER.24H 30 MG PO ×2 (08:34→12:38)
[2024-01-29] MEDS: Gabapentin 300 MG CAPSULE PO ×3 (08:34→21:13)
[2024-01-29] MEDS: Venlafaxine HCl ER 75 MG CAP.ER.24H PO (08:35)
[2024-01-29] MEDS: Mineral Oil/Petrolatum,White 106 GM Tube 1 APPL TOPICAL (10:58)
--- NOTE | 2024-01-29 11:29 | HO.PSYCHPN ---
Subjective Subjective Date of Service: 01/29/24 Reason For Visit: depression/si Interim History: Patient reports he is feeling good. 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 He is engaging some peers in the activity. Feels recent medication changes are helpful. He seems somewhat euphoric. Denies side effects. He has some dryness in his feet. Review of Systems Review of Systems Yes all other systems are reviewed and are negative Constitutional: Reports as per HPI Eyes: Reports as per HPI Reports as per HPI Cardiovascular: Reports as per HPI Respiratory: Reports as per HPI Gastrointestinal: Reports as per HPI Genitourinary: Reports as per HPI Musculoskeletal: Reports as per HPI Skin/Breast: Reports as per HPI Reports as per HPI Psychiatric: Reports as per HPI Endocrine: Reports as per HPI Hematologic/Lymphatic: Reports as per HPI Allergic/Immunologic: Reports as per HPI Mental Status Exam Mental Status Exam Narrative: Pt is alert and oriented; behavior is hyperactive but cooperative, friendly; patient is not in distress; dressed in hospital attire, disheveled; mood is described as feeling great and affect congruent; eye contact appropriate; Speech is verbose, mildly pressured, but normal volume and prosody; mild psychomotor agitation present; thought process is organized and goal directed; Thought content is on tx; otherwise pertinent to relevant topics and without any delusional content, paranoid ideations or grandiosity; denies any SI/HI. There is no evidence of perceptual disturbance. Patients insight and judgment impaired but improving Patient Appearance: Well Grooomed Patient Orientation: Person, Place, Time and Situation Level of Consciousness: Awake and Alert Patient Behavior: Talkative and Cooperative Mood Description: Cheerful Affect Description: Cheerful Ability to Follow Directions: Good Speech Pattern: Rapid and Pressured Diagnostics Vital Signs (24Hr): Vital Signs - 24 hr 01/28/24 20:00 01/28/24 21:58 01/29/24 07:59 Temperature 98.2 F 98.2 F Pulse Rate 93 83 Respiratory Rate 17 Blood Pressure 135/95 H 126/83 112/82 Pulse Oximetry 100 98 Oxygen Delivery Method Room Air Room Air BMI result Body Mass Index 21.7 Labs 01/22/24 05:43 01/22/24 05:43 Medications Medications Current Medications Acetaminophen (Acetaminophen 325 Mg Tablet) 650 mg PO Q6H PRN PRN Reason: Headache/Pain Mild Scale (1-3) Last Admin: 01/28/24 23:15 Dose: 650 mg Al Hydroxide/Mg Hydroxide (Magnesium Hydrox/Alum Hydrox 30 Ml Oral.Susp) 30 ml PO Q6H PRN PRN Reason: Heartburn/Nausea Last Admin: 01/25/24 23:03 Dose: 30 ml Amphetamine/Dextroamphetamine (Dextroamphetamine/Amphetamine Xr 10 Mg Cap.Er.24h) 30 mg PO BID@0900,1300 [facility] Last Admin: 01/29/24 08:34 Dose: 30 mg Clonidine HCl (Clonidine Hcl 0.1 Mg Tablet) 0.1 mg PO Q4H PRN; Protocol PRN Reason: anxiety Last Admin: 01/28/24 21:58 Dose: 0.1 mg Gabapentin (Gabapentin 300 Mg Capsule) 300 mg PO TID [facility] Last Admin: 01/29/24 08:34 Dose: 300 mg Hydroxyzine HCl (Hydroxyzine Hcl 25 Mg Tablet) 25 mg PO Q6H PRN PRN Reason: Anxiety Last Admin: 01/25/24 20:48 Dose: 25 mg Magnesium Hydroxide (Milk Of Magnesia 30 Ml Oral.Susp) 30 ml PO DAILY PRN PRN Reason: Constipation Methadone HCl (Methadone Hcl 20 Mg/2 Ml Oral.Conc) 40 mg PO DAILY [facility] Last Admin: 01/29/24 07:48 Dose: 40 mg Multi-Ingred Cream/Lotion/Oil/Oint (Mineral Oil/Petrolatum,White 106 Gm Tube) 1 appl TOPICAL DAILY [facility]; Protocol Last Admin: 01/29/24 10:58 Dose: 1 appl Nicotine Polacrilex (Nicotine Polacrilex Lozenge 4 Mg Lozenge) 4 mg BUCCAL Q2H PRN PRN Reason: Nicotine Cravings Last Admin: 01/29/24 10:50 Dose: 4 mg Olanzapine (Olanzapine 5 Mg Tablet) 5 mg PO TID PRN PRN Reason: agitation Trazodone HCl (Trazodone Hcl 50 Mg Tablet) 50 mg PO BEDTIME MRX1 PRN PRN Reason: Insomnia Venlafaxine HCl (Venlafaxine Hcl Er 75 Mg Cap.Er.24h) 75 mg PO DAILY [facility] Last Admin: 01/29/24 08:35 Dose: 75 mg Allergies Allergies Allergy/AdvReac Type Severity Reaction Status Date / Time No Known Allergies Allergy Verified 01/22/24 05:01 Assessment & Plan Assessment & Plan (1) Major depressive disorder, recurrent severe without psychotic features: Status: Acute Code(s): F33.2 - Major depressive disorder, recurrent severe without psychotic features (2) Post traumatic stress disorder (PTSD): Status: Acute Code(s): F43.10 - Post-traumatic stress disorder, unspecified (3) ADHD (attention deficit hyperactivity disorder): Status: Acute Code(s): F90.9 - Attention-deficit hyperactivity disorder, unspecified type (4) Opioid use disorder: Status: Acute Code(s): F11.99 - Opioid use, unspecified with unspecified opioid-induced disorder (5) Alcohol use disorder: Status: Acute Code(s): F10.90 - Alcohol use, unspecified, uncomplicated (6) Cocaine use disorder: Status: Acute Code(s): F14.10 - Cocaine abuse, uncomplicated Plan Patient is a 48-year-old male with history of depression, PTSD alcohol use disorder and cocaine/opiate use disorder, who presents for worsening depression with SI in the face of being off medications and relapse. Patient reports that he was sober for several months, going to AA meetings, taking his medications. His provider went on maternity leave and the interim provider started insisting patient submit to blood pressure checks for Adderall, something he had beginning for years, refusing to give it to him if his blood pressure was above certain parameters. Patient felt challenged by this and noted that the worry about not getting Adderall, would spike his blood pressure. In frustration patient did not return for follow-up. Off medications patient said I started making bad decisions and left the apartment he was living in and started wandering the streets; he quickly relapsed with alcohol, cocaine, opiates. 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 Patient denies history of manic episodes or behaviors. Formulation/clinical reasoning: Patient reports being stable on past regimen of Adderall, Effexor, gabapentin and wants to get back on this. Strongly considering going to a program to help get back to being sober. Mildly pressured speech and a little hypomanic but seems to be more likely due to ADHD symptoms then actual colleen PLAN: CV Q15 min checks restart Adderall XR 30 mg daily (corroborates with mass Pat) Restart Effexor XL 37.5; patient said he did well on this medication in the past Restart gabapentin 300 mg t.i.d.; been on in the past for anxiety Add clonidine 0.1 mg q.4 p.r.n. for anxiety Titrate methadone to 45 mg; patient reports doing well on this dose in the past DC CIWA; patient not scoring and says withdrawal is mostly done, completed in the ED Currently BP is grossly WNL with DBP intermittently elevated; will monitor 01/25: Active on unit, social with peers. Presents with rapid and pressured speech. Pt reports feeling great ; pt stated, I'm not having withdrawal symptoms anymore. I slept well and I knew once I started my meds I'd feel better . Per nursing, pt slept 6 hours last night. denies SI/HI/VH/AH. Continue current tx plan. 01/27: Continue current management and treatment plan. Monitor for hypomania. 01/28: Continue current management and treatment plan. Monitor for hypomania. Petrolatum gel. Reason for continued inpatient stay Substantial Risk for: inability to function and rapid decompensation Time Spent With Patient Time: Total time managing care of this patient today ____ minutes.
[2024-01-29 20:00] VITALS: BP 121/60; PULSE 91; RESP 16; TEMP 36.3; O2SAT 98
[2024-01-29] MEDS: hydrOXYzine HCL 25 MG TABLET PO (21:13)
[2024-01-29] MEDS: Melatonin 3 MG TABLET 6 MG PO (21:14)
[2024-01-29] MEDS: Acetaminophen 325 MG TABLET 650 MG PO (21:15)
[2024-01-30] MEDS: Nicotine Polacrilex Lozenge 4 MG LOZENGE BUCCAL ×6 (02:55→20:19)
[2024-01-30] MEDS: methADONE HCl 20 MG/2 ML ORAL.CONC 40 MG PO (07:47)
[2024-01-30 08:00] VITALS: BP 121/71; PULSE 99; RESP 16; TEMP 36.4; O2SAT 98
[2024-01-30] MEDS: Venlafaxine HCl ER 75 MG CAP.ER.24H PO (08:38)
[2024-01-30] MEDS: Gabapentin 300 MG CAPSULE PO ×3 (08:38→20:15)
[2024-01-30] MEDS: Mineral Oil/Petrolatum,White 106 GM Tube 1 APPL TOPICAL (08:41)
[2024-01-30] MEDS: Dextroamphetamine/Amphetamine XR 10 MG CAP.ER.24H 30 MG PO ×2 (09:09→12:12)
--- NOTE | 2024-01-30 10:01 | HO.PSYCHPN ---
Subjective Subjective Date of Service: 01/30/24 Reason For Visit: depression/si Interim History: met with patient; discussed with team; reviewed chart pt says his mood is overall good. He is missing a peer he met on the unit and feeling a little down...discussed medication management, and whether to go up on effexor since he's been on 150mg before. Ambivalent for now and will consider whether to go up; but otherwise, doing much better. Rest of meds are working well and should leave them as is; reports eating and sleeping well. He wants to go to [facility] hospital. When he leaves, will stay at a friends while getting an apartment w/ sister, who is sober. Will resume going to either or NA Mental Status Exam Mental Status Exam Narrative: Pt is alert and oriented; behavior is a little hyperactive but cooperative, friendly; patient is not in distress; dressed in hospital attire, disheveled; mood is described as a little down...overall good... and affect congruent; eye contact appropriate; Speech is verbose, mildly pressured, but normal volume and prosody; mild psychomotor agitation present; thought process is organized and goal directed; Thought content is on tx; otherwise pertinent to relevant topics and without any delusional content, paranoid ideations or grandiosity; denies any SI/HI. There is no evidence of perceptual disturbance. Patients insight and judgment fair. Diagnostics Vital Signs (24Hr): Vital Signs - 24 hr 01/29/24 20:00 Temperature 97.3 F Pulse Rate 91 Respiratory Rate 16 Blood Pressure 121/60 Pulse Oximetry 98 Oxygen Delivery Method Room Air BMI result Body Mass Index 21.7 Labs 01/22/24 05:43 01/22/24 05:43 Medications Medications Current Medications Acetaminophen (Acetaminophen 325 Mg Tablet) 650 mg PO Q6H PRN PRN Reason: Headache/Pain Mild Scale (1-3) Last Admin: 01/29/24 21:15 Dose: 650 mg Al Hydroxide/Mg Hydroxide (Magnesium Hydrox/Alum Hydrox 30 Ml Oral.Susp) 30 ml PO Q6H PRN PRN Reason: Heartburn/Nausea Last Admin: 01/25/24 23:03 Dose: 30 ml Amphetamine/Dextroamphetamine (Dextroamphetamine/Amphetamine Xr 10 Mg Cap.Er.24h) 30 mg PO BID@0900,1300 [facility] Last Admin: 01/30/24 09:09 Dose: 30 mg Clonidine HCl (Clonidine Hcl 0.1 Mg Tablet) 0.1 mg PO Q4H PRN; Protocol PRN Reason: anxiety Last Admin: 01/28/24 21:58 Dose: 0.1 mg Gabapentin (Gabapentin 300 Mg Capsule) 300 mg PO TID [facility] Last Admin: 01/30/24 08:38 Dose: 300 mg Hydroxyzine HCl (Hydroxyzine Hcl 25 Mg Tablet) 25 mg PO Q6H PRN PRN Reason: Anxiety Last Admin: 01/29/24 21:13 Dose: 25 mg Magnesium Hydroxide (Milk Of Magnesia 30 Ml Oral.Susp) 30 ml PO DAILY PRN PRN Reason: Constipation Melatonin (Melatonin 3 Mg Tablet) 6 mg PO BEDTIME [facility] Last Admin: 01/29/24 21:14 Dose: 6 mg Methadone HCl (Methadone Hcl 20 Mg/2 Ml Oral.Conc) 40 mg PO DAILY [facility] Last Admin: 01/30/24 07:47 Dose: 40 mg Multi-Ingred Cream/Lotion/Oil/Oint (Mineral Oil/Petrolatum,White 106 Gm Tube) 1 appl TOPICAL DAILY [facility]; Protocol Last Admin: 01/30/24 08:41 Dose: 1 appl Nicotine Polacrilex (Nicotine Polacrilex Lozenge 4 Mg Lozenge) 4 mg BUCCAL Q2H PRN PRN Reason: Nicotine Cravings Last Admin: 01/30/24 08:38 Dose: 4 mg Olanzapine (Olanzapine 5 Mg Tablet) 5 mg PO TID PRN PRN Reason: agitation Trazodone HCl (Trazodone Hcl 50 Mg Tablet) 50 mg PO BEDTIME MRX1 PRN PRN Reason: Insomnia Venlafaxine HCl (Venlafaxine Hcl Er 75 Mg Cap.Er.24h) 75 mg PO DAILY [facility] Last Admin: 01/30/24 08:38 Dose: 75 mg Allergies Allergies Allergy/AdvReac Type Severity Reaction Status Date / Time No Known Allergies Allergy Verified 01/22/24 05:01 Assessment & Plan Assessment & Plan (1) Major depressive disorder, recurrent severe without psychotic features: Status: Acute Code(s): F33.2 - Major depressive disorder, recurrent severe without psychotic features (2) Post traumatic stress disorder (PTSD): Status: Acute Code(s): F43.10 - Post-traumatic stress disorder, unspecified (3) ADHD (attention deficit hyperactivity disorder): Status: Acute Code(s): F90.9 - Attention-deficit hyperactivity disorder, unspecified type (4) Opioid use disorder: Status: Acute Code(s): F11.99 - Opioid use, unspecified with unspecified opioid-induced disorder (5) Alcohol use disorder: Status: Acute Code(s): F10.90 - Alcohol use, unspecified, uncomplicated (6) Cocaine use disorder: Status: Acute Code(s): F14.10 - Cocaine abuse, uncomplicated Plan Patient is a 48-year-old male with history of depression, PTSD alcohol use disorder and cocaine/opiate use disorder, who presents for worsening depression with SI in the face of being off medications and relapse. Patient reports that he was sober for several months, going to AA meetings, taking his medications. His provider went on maternity leave and the interim provider started insisting patient submit to blood pressure checks for Adderall, something he had beginning for years, refusing to give it to him if his blood pressure was above certain parameters. Patient felt challenged by this and noted that the worry about not getting Adderall, would spike his blood pressure. In frustration patient did not return for follow-up. Off medications patient said I started making bad decisions and left the apartment he was living in and started wandering the streets; he quickly relapsed with alcohol, cocaine, opiates. 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 Patient denies history of manic episodes or behaviors. Formulation/clinical reasoning: Patient reports being stable on past regimen of Adderall, Effexor, gabapentin and wants to get back on this. Strongly considering going to a program to help get back to being sober. Mildly pressured speech and a little hypomanic but seems to be more likely due to ADHD symptoms then actual colleen Hospital: 01/25: Active on unit, social with peers. Presents with rapid and pressured speech. Pt reports feeling great ; pt stated, I'm not having withdrawal symptoms anymore. I slept well and I knew once I started my meds I'd feel better . Per nursing, pt slept 6 hours last night. denies SI/HI/VH/AH. Continue current tx plan. 01/26 Patient restarted on home medication. Patient reports that he is feeling better, mood is better; reports he is sleeping well.? Again discussed what seems to freelance writer to be hypomanic behaviors however on review of history, patient denies any discrete manic episodes and again reiterates that he screen for this in order to receive T MS.? Patient says that perhaps his Adderall is wearing off and is ADHD symptoms are surfacing and asks if he can have an afternoon Adderall dose to which freelance writer agrees.-no si 01/29 overall doing well; feels a little down since peer leaving; discussed effexor since he's been on 150mg before. Ambivalent. feels adhd meds working well and grateful for afternoon dose no cravings at all and very much wants to sober Seems hypomanic but might just be ADHD and that he's naturally exhuberent; says sleeping well. He is sleeping well and he can be calm and have a normal, appropriate discourse. For this reason have hesitated to go up further on Effexor. Will continue to monitor...he denies any hx of actual manic episode (and has had TMS for which bipolar is contraindicated). Will continue to monitor for any worsening manic symptoms BP's are grossly WNL on Adderall PLAN: CV Q15 min checks Continue Adderall XR 30 mg BID@0900,1400 (corroborates with mass Pat) Continue Effexor XL 75mg; patient said he did well on this medication in the past Continue gabapentin 300 mg t.i.d.; been on in the past for anxiety Continue clonidine 0.1 mg q.4 p.r.n. for anxiety Titrate methadone to 45 mg; patient reports doing well on this dose in the past DC CIWA; patient not scoring and says withdrawal is mostly done, completed in the ED Currently BP is grossly WNL with DBP intermittently elevated; will monitor Patient educated on: diagnosis, medication risk/benefits and substance abuse Informed Consent: understands and further education needed Reason for continued inpatient stay Substantial Risk for: rapid decompensation Time Spent With Patient Time: Total time managing care of this patient today ____ minutes.
[2024-01-30] MEDS: Acetaminophen 325 MG TABLET 650 MG PO (12:10)
[2024-01-30 20:00] VITALS: BP 135/72; PULSE 96; RESP 16; TEMP 36.6; O2SAT 98
[2024-01-30 20:14] VITALS: BP 129/68
[2024-01-30] MEDS: cloNIDine HCL 0.1 MG TABLET PO (20:14)
[2024-01-30] MEDS: Melatonin 3 MG TABLET 6 MG PO (20:14)
[2024-01-31] MEDS: Nicotine Polacrilex Lozenge 4 MG LOZENGE BUCCAL ×6 (00:55→20:49)
[2024-01-31] MEDS: hydrOXYzine HCL 25 MG TABLET PO (00:56)
[2024-01-31] MEDS: methADONE HCl 20 MG/2 ML ORAL.CONC 40 MG PO (07:48)
[2024-01-31 07:54] VITALS: BP 128/70; PULSE 73; RESP 18; TEMP 36.4; O2SAT 99
[2024-01-31] MEDS: Gabapentin 300 MG CAPSULE PO ×3 (08:48→20:03)
[2024-01-31] MEDS: Venlafaxine HCl ER 75 MG CAP.ER.24H PO (08:48)
[2024-01-31] MEDS: Mineral Oil/Petrolatum,White 106 GM Tube 1 APPL TOPICAL (08:50)
[2024-01-31] MEDS: Dextroamphetamine/Amphetamine XR 10 MG CAP.ER.24H 30 MG PO ×2 (09:07→12:44)
--- NOTE | 2024-01-31 09:40 | P.PNPSI_ITS ---
Subjective Subjective Date of Service: 01/31/24 Reason For Visit: depression/si Interim History: met with patient; discussed with team Reports doing well, good mood, sleeping and eating well, feels ready for discharge. Plans to go stay with friends then move in with his sister who is sober and a positive influence. Patient reported to his nurse that he has a hernia and nurse observed inguinal hernia which was reproducible. Patient said that he has had for a long time says sometimes it hurts but mostly not. Retail Aide discussed this with him. Patient did not want to show contract technical writer and said that he would just go see his own doctor about post discharge. Mental Status Exam Mental Status Exam Narrative: Pt is alert and oriented; behavior is a little hyperactive but cooperative, friendly; patient is not in distress; dressed in hospital attire, unkempt but adequate hygiene; mood is described as good and affect congruent; eye contact appropriate; Speech is verbose, mildly pressured, but normal volume and prosody; mild psychomotor agitation present; thought process is organized and goal directed; Thought content is on tx; otherwise pertinent to relevant topics and without any delusional content, paranoid ideations or grandiosity; denies any SI/HI. There is no evidence of perceptual disturbance. Patients insight and judgment fair. Diagnostics Vital Signs (24Hr): Vital Signs - 24 hr 01/30/24 20:00 01/30/24 20:14 01/31/24 07:54 Temperature 97.8 F 97.5 F Pulse Rate 96 73 Respiratory Rate 16 18 Blood Pressure 135/72 129/68 128/70 Pulse Oximetry 98 99 Oxygen Delivery Method Room Air Room Air BMI result Body Mass Index 21.7 Labs 01/22/24 05:43 01/22/24 05:43 Medications Medications Current Medications Acetaminophen (Acetaminophen 325 Mg Tablet) 650 mg PO Q6H PRN PRN Reason: Headache/Pain Mild Scale (1-3) Last Admin: 01/30/24 12:10 Dose: 650 mg Al Hydroxide/Mg Hydroxide (Magnesium Hydrox/Alum Hydrox 30 Ml Oral.Susp) 30 ml PO Q6H PRN PRN Reason: Heartburn/Nausea Last Admin: 01/25/24 23:03 Dose: 30 ml Amphetamine/Dextroamphetamine (Dextroamphetamine/Amphetamine Xr 10 Mg Cap.Er.24h) 30 mg PO BID@0900,1300 JULIA Last Admin: 01/31/24 09:07 Dose: 30 mg Clonidine HCl (Clonidine Hcl 0.1 Mg Tablet) 0.1 mg PO Q4H PRN; Protocol PRN Reason: anxiety Last Admin: 01/30/24 20:14 Dose: 0.1 mg Gabapentin (Gabapentin 300 Mg Capsule) 300 mg PO TID JULIA Last Admin: 01/31/24 08:48 Dose: 300 mg Hydroxyzine HCl (Hydroxyzine Hcl 25 Mg Tablet) 25 mg PO Q6H PRN PRN Reason: Anxiety Last Admin: 01/31/24 00:56 Dose: 25 mg Magnesium Hydroxide (Milk Of Magnesia 30 Ml Oral.Susp) 30 ml PO DAILY PRN PRN Reason: Constipation Melatonin (Melatonin 3 Mg Tablet) 6 mg PO BEDTIME JULIA Last Admin: 01/30/24 20:14 Dose: 6 mg Methadone HCl (Methadone Hcl 20 Mg/2 Ml Oral.Conc) 40 mg PO DAILY JULIA Last Admin: 01/31/24 07:48 Dose: 40 mg Multi-Ingred Cream/Lotion/Oil/Oint (Mineral Oil/Petrolatum,White 106 Gm Tube) 1 appl TOPICAL DAILY [facility]; Protocol Last Admin: 01/31/24 08:50 Dose: 1 appl Nicotine Polacrilex (Nicotine Polacrilex Lozenge 4 Mg Lozenge) 4 mg BUCCAL Q2H PRN PRN Reason: Nicotine Cravings Last Admin: 01/31/24 08:49 Dose: 4 mg Olanzapine (Olanzapine 5 Mg Tablet) 5 mg PO TID PRN PRN Reason: agitation Trazodone HCl (Trazodone Hcl 50 Mg Tablet) 50 mg PO BEDTIME MRX1 PRN PRN Reason: Insomnia Venlafaxine HCl (Venlafaxine Hcl Er 75 Mg Cap.Er.24h) 75 mg PO DAILY JULIA Last Admin: 01/31/24 08:48 Dose: 75 mg Allergies Allergies Allergy/AdvReac Type Severity Reaction Status Date / Time No Known Allergies Allergy Verified 01/22/24 05:01 Assessment & Plan Assessment & Plan (1) Major depressive disorder, recurrent severe without psychotic features: Status: Acute Code(s): F33.2 - Major depressive disorder, recurrent severe without psychotic features (2) Post traumatic stress disorder (PTSD): Status: Acute Code(s): F43.10 - Post-traumatic stress disorder, unspecified (3) ADHD (attention deficit hyperactivity disorder): Status: Acute Code(s): F90.9 - Attention-deficit hyperactivity disorder, unspecified type (4) Opioid use disorder: Status: Acute Code(s): F11.99 - Opioid use, unspecified with unspecified opioid-induced disorder (5) Alcohol use disorder: Status: Acute Code(s): F10.90 - Alcohol use, unspecified, uncomplicated (6) Cocaine use disorder: Status: Acute Code(s): F14.10 - Cocaine abuse, uncomplicated Plan Patient is a 48-year-old male with history of depression, PTSD alcohol use disorder and cocaine/opiate use disorder, who presents for worsening depression with SI in the face of being off medications and relapse. Patient reports that he was sober for several months, going to AA meetings, taking his medications. His provider went on maternity leave and the interim provider started insisting patient submit to blood pressure checks for Adderall, something he had beginning for years, refusing to give it to him if his blood pressure was above certain parameters. Patient felt challenged by this and noted that the worry about not getting Adderall, would spike his blood pressure. In frustration patient did not return for follow-up. Off medications patient said I started making bad decisions and left the apartment he was living in and started wandering the streets; he quickly relapsed with alcohol, cocaine, opiates. 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 Patient denies history of manic episodes or behaviors. Formulation/clinical reasoning: Patient reports being stable on past regimen of Adderall, Effexor, gabapentin and wants to get back on this. Strongly considering going to a program to help get back to being sober. Mildly pressured speech and a little hypomanic but seems to be more likely due to ADHD symptoms then actual colleen Hospital: 01/25: Active on unit, social with peers. Presents with rapid and pressured speech. Pt reports feeling great ; pt stated, I'm not having withdrawal symptoms anymore. I slept well and I knew once I started my meds I'd feel better . Per nursing, pt slept 6 hours last night. denies SI/HI/VH/AH. Continue current tx plan. 01/26 Patient restarted on home medication. Patient reports that he is feeling better, mood is better; reports he is sleeping well.? Again discussed what seems to contract technical writer to be hypomanic behaviors however on review of history, patient denies any discrete manic episodes and again reiterates that he screen for this in order to receive T MS.? Patient says that perhaps his Adderall is wearing off and is ADHD symptoms are surfacing and asks if he can have an afternoon Adderall dose to which contract technical writer agrees.-no si 01/29 overall doing well; feels a little down since peer leaving; discussed effexor since he's been on 150mg before. Ambivalent. feels adhd meds working well and grateful for afternoon dose no cravings at all and very much wants to sober Seems hypomanic but might just be ADHD and that he's naturally exhuberent; says sleeping well. He is sleeping well and he can be calm and have a normal, appropriate discourse. For this reason have hesitated to go up further on Effexor. Will continue to monitor...he denies any hx of actual manic episode (and has had TMS for which bipolar is contraindicated). Will continue to monitor for any worsening manic symptoms BP's are grossly WNL on Adderall Regarding diagnosis, will leave it at MDD and ADHD (and PTSD). Patient has seemed somewhat hypomanic throughout his admission but med is not worsened either with Effexor or Adderall and patient says this is how he normally is. It is very possible that patient's symptoms are simply due to ADHD symptoms and a natural exuberance; it is also possible that patient is hypomanic at baseline. He does not want any mood stabilizers and has remained functional on current regimen, in the hospital and as an outpatient. 01/30 Reports doing well, good mood, sleeping and eating well, feels ready for discharge. Plans to go stay with friends then move in with his sister who is sober and a positive influence. Patient reported to his nurse that he has a hernia and nurse observed inguinal hernia which was reproducible. Patient said that he has had for a long time says sometimes it hurts but mostly not. Retail Aide discussed this with him. Patient did not want to show contract technical writer and said that he would just go see his own doctor about post discharge. Patient has plan for staying sober, going to any groups; also scheduled for partial. Patient feels that he is back to his regular self and his optimistic. While he remains at risk for relapse, this is a chronic struggle for him, 1 of which he is well aware and which will not resolve with longer stay on inpatient unit; rather requires consistent outpatient adherence to substance abuse treatment and sobriety, with which patient is willing to engage. He is not in imminent risk for harm to self or others and is appropriate to return to the community for treatment. His request for discharge honored. PLAN: CV Q15 min checks Continue Adderall XR 30 mg BID@0900,1400 (corroborates with mass Pat) Continue Effexor XL 75mg; patient said he did well on this medication in the past Continue gabapentin 300 mg t.i.d.; been on in the past for anxiety Continue clonidine 0.1 mg q.4 p.r.n. for anxiety methadone to 40 mg; patient reports doing well on this dose in the past DC CIWA; patient not scoring and says withdrawal is mostly done, completed in the ED Currently BP is grossly WNL with DBP intermittently elevated; will monitor Patient educated on: diagnosis, medication risk/benefits, substance abuse, therapeutic strategies and medical condition Informed Consent: understands Reason for continued inpatient stay Substantial Risk for: stable for discharge Time Spent With Patient Time: Total time managing care of this patient today ____ minutes.
[2024-01-31 20:00] VITALS: BP 122/73; PULSE 86; TEMP 36.4; O2SAT 99
[2024-01-31 20:03] VITALS: BP 122/73
[2024-01-31] MEDS: Melatonin 3 MG TABLET 6 MG PO (20:03)
[2024-01-31] MEDS: cloNIDine HCL 0.1 MG TABLET PO (20:03)
[2024-02-01] MEDS: Nicotine Polacrilex Lozenge 4 MG LOZENGE BUCCAL ×3 (05:08→12:06)
[2024-02-01] MEDS: methADONE HCl 20 MG/2 ML ORAL.CONC 40 MG PO (07:44)
[2024-02-01 08:00] VITALS: BP 130/61; PULSE 70; RESP 16; TEMP 36.3; O2SAT 96
[2024-02-01] MEDS: Dextroamphetamine/Amphetamine XR 10 MG CAP.ER.24H 30 MG PO ×2 (08:26→12:04)
[2024-02-01] MEDS: Gabapentin 300 MG CAPSULE PO (08:27)
[2024-02-01] MEDS: Venlafaxine HCl ER 75 MG CAP.ER.24H PO (08:27)
--- NOTE | 2024-02-01 11:05 | P.DS_ITS ---
DS: Providers Provider Date of Service: 02/01/24 Date of admission: 01/24/24 12:33 Date of discharge: 02/01/24 Primary care physician: Art Hughes MD Attending physician on admission: Jerel Berg Consults: 01/24/24 14:05 Addiction Medicine Routine Consulting Provider: Addiction Covering Reason for consultation: alcohol use disorder and opiate use/cocaine use Attending physician on discharge: Jerel Berg DS: Diagnosis Discharge Diagnosis (1) Major depressive disorder, recurrent severe without psychotic features: Status: Acute (2) Post traumatic stress disorder (PTSD): Status: Acute (3) ADHD (attention deficit hyperactivity disorder): Status: Acute (4) Opioid use disorder: Status: Acute (5) Alcohol use disorder: Status: Acute (6) Cocaine use disorder: Status: Acute DS: Medications Discharge Medications Home Medications: Previous Rx's ?Medication ?Instructions ?Recorded clonidine HCl 0.1 mg tablet 0.1 mg PO Q4H PRN anxiety 30 days 02/01/24 #90 tabs dextroamphetamine-amphetamine ER 30 mg PO DAILY@0900,1300 30 days 02/01/24 30 mg 24hr capsule,extend release #60 caps gabapentin 300 mg capsule 300 mg PO TID 30 days #90 caps 02/01/24 hydroxyzine HCl 25 mg tablet 25 mg PO Q6H PRN Anxiety 30 days 02/01/24 #60 tabs melatonin 5 mg tablet 5 mg PO BEDTIME PRN sleep 30 days 02/01/24 #30 tabs methadone 10 mg/mL oral 40 mg (4 mL) PO DAILY #0 mL 02/01/24 concentrate (Methadose) nicotine (polacrilex) 4 mg buccal 4 mg buccal Q2H PRN Nicotine 02/01/24 lozenge Cravings 30 days #108 ea venlafaxine 75 mg capsule,extended 75 mg PO DAILY 30 days #30 caps 02/01/24 release 24 hr Mental Status Exam Mental Status Exam Narrative: Pt is alert and oriented; behavior is a little hyperactive but cooperative, friendly; patient is not in distress; dressed in hospital attire, unkempt but adequate hygiene; mood is described as good and affect congruent; eye contact appropriate; Speech is verbose, mildly pressured, but normal volume and prosody; mild psychomotor agitation present; thought process is organized and goal directed; Thought content is on tx; otherwise pertinent to relevant topics and without any delusional content, paranoid ideations or grandiosity; denies any SI/HI. There is no evidence of perceptual disturbance. Patients insight and judgment fair. DS: Summary Hospital Course Hospital Course: HPI: Patient is a 48-year-old male with history of depression, PTSD alcohol use disorder and cocaine/opiate use disorder, who presents for worsening depression with SI in the face of being off medications and relapse. Patient reports that he was sober for several months, going to AA meetings, taking his medications. His provider went on maternity leave and the interim provider started insisting patient submit to blood pressure checks for Adderall, something he had beginning for years, refusing to give it to him if his blood pressure was above certain parameters. Patient felt challenged by this and noted that the worry about not getting Adderall, would spike his blood pressure. In frustration patient did not return for follow-up. Off medications patient said I started making bad decisions and left the apartment he was living in and started wandering the streets; he quickly relapsed with alcohol, cocaine, opiates. 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 Patient denies history of manic episodes or behaviors. Hospital Course: On admission, patient pleasant, cooperative; depressed but SI resolved; mild withdrawal symptoms mostly resolved in ED and patient initially on a CIWA but low scoring and able to come off. Patient discussed history of being stable on past regimen of Adderall, Effexor, gabapentin and wants to get back on this. Patient with mildly pressured speech and a little hypomanic but seems to be more likely due to ADHD symptoms then actual colleen. Patient's depression soon abated and he was in a good mood. Patient was in behavioral mostly impulse control, exuberant and excitable but appropriate with peers and staff. Patient continued to have hypomanic symptoms however on assessment he continued to deny any history of discrete manic type episodes or behaviors. Patient eating and sleeping well, sleeping through the night. Feels that medications are helpful and wants to continue with titration of Effexor; he wonders if maybe some of his hyperactive behaviors are because his Adderall wears off and patient agreed to have a 2nd dose of extended release Adderall in the afternoon which proved to be helpful and did calm patient down some. Patient remained in a good mood, future oriented. He did not want to go to a program but wanted to go to partial day treatment program instead; his plan was to also go to NA and move in with his sister who is sober and supportive; while waiting for his sister to get a place he was going to move in with friends and felt optimistic he could stay sober. Patient felt that he was at his baseline, in a good mood, optimistic, back to his regular self and ready for discharge. Patient has plan for staying sober, going to any groups; also scheduled for partial day program. While he remains at risk for relapse, this is a chronic struggle for him, 1 of which he is well aware and which will not resolve with longer stay on inpatient unit; rather requires consistent outpatient adherence to substance abuse treatment and sobriety, with which patient is willing to engage. He is not in imminent risk for harm to self or others and is appropriate to return to the community for treatment. His request for discharge honored. Regarding diagnosis: Although hypomanic type symptoms remained, Recordist Chief decided to leave diagnosis as MDD and ADHD (and PTSD) as symptoms have not worsened with Effexor and seem to get better with addition of Adderall; he is also been sleeping well throughout the night throughout his time in the unit and is able to become and have a normal, appropriate given take conversation (patient also had TMS in the past, for which he was screened for bipolar which is contraindicated for TMS). As it is very possible that patient's symptoms are simply due to ADHD symptoms and a natural exuberance leaving diagnosis as is; that is said it is also possible that he is hypomanic at baseline and bipolar II can remain a rule out. Patient does not think he has bipolar disorder, did not want mood stabilizers and has remained functional and current regimen both in the hospital as an outpatient. Patient reported to his nurse that he has a hernia and nurse observed inguinal hernia which was reproducible. Patient said that he has had for a long time says sometimes it hurts but mostly not. Recordist Chief discussed this with him including, risks and treatments. Patient did not want to show senior mortgage underwriter and said that he would just go see his own doctor about post discharge. Time spent discussing smoking cessation with patient: 3 to 10 minutes Status at Discharge Functional status at discharge: independent ambulation Overall status at discharge: patient is back to baseline Time Spent with Patient Time attestation: Total time managing care of this patient today _45___ minutes. Time spent: Greater than 30 minutes Specific discharge activities: Met with patient; discussed with team; prescriptions, charting Discharge Plan Discharge Anticipated Discharge Date/Time: 02/01/24 00:30 Patient Disposition: Prison Discharge Diagnosis: MDD, recurrent, severe without psychotic symptoms, in full remission Referrals: [facility] Partial Hospitalization Program [Other] - 02/06/24 8:00 am (Go to [facility]. [facility] building is a red [employer] building behind [employer]. ) [facility] Intake with Kelly Urbano [Other] - 02/09/24 10:00 am (Intake is in person.) [facility] Psyche Eval with Tenisha Soto [Other] - 02/29/24 2:20 pm (Telehealth Provided in Patient's Home) [facility] Med Mgmt w Tenisha Soto [Other] - 03/30/24 10:20 am (Telehealth Provided in Patient's Home) [facility] for [facility] PHP [Other] - 1 Day (Call them today or tomorrow to set up cloth picker time. ) Art Hughes MD [Primary Care Provider] - 1 Week (Pt declined for hospital to schedule follow up appointment. Pt stated he would schedule his own appointment after discharge. ) Discharge Medications: New nicotine (polacrilex) 4 mg Lozenge 4 mg buccal Q2H PRN (Reason: Nicotine Cravings) 30 Days Qty: 108 0RF clonidine HCl 0.1 mg Tablet 0.1 mg PO Q4H PRN (Reason: anxiety) 30 Days Qty: 90 0RF Protocol: Hold for SBP< HOLD for SBP < : 90 dextroamphetamine-amphetamine 30 mg capsule,extended release 24hr 30 mg PO DAILY@0900,1300 30 Days Qty: 60 0RF Rx Instructions: Partial Fill upon patient request. gabapentin 300 mg Capsule 300 mg PO TID 30 Days Qty: 90 0RF hydroxyzine HCl 25 mg Tablet 25 mg PO Q6H PRN (Reason: Anxiety) 30 Days Qty: 60 0RF methadone [Methadose] 10 mg/mL Concentrate 40 mg PO DAILY Qty: 0 0RF Rx Instructions: Partial Fill upon patient request. venlafaxine 75 mg Capsule,Extended Release 24hr 75 mg PO DAILY 30 Days Qty: 30 0RF melatonin 5 mg tablet 5 mg PO BEDTIME PRN (Reason: sleep) 30 Days Qty: 30 0RF Discontinued methadone [Methadone Intensol] 10 mg/mL Concentrate 45 mg PO DAILY Discharge Orders: Discharge Order (Routine); Ordered 02/01/24 Ordered By: Jerel Berg Diet: Regular diet Activity on Discharge: As tolerated Stand Alone Forms: Patient Portal Discharge page, Community Support Print Language: Singaporean Care Plan Goals: Maintain mood and safe behaviors Take medications as prescribed Continue to pursue sobriety Practice coping skills Continue with outpatient providers and reach out to them as needed Health Concerns: Mood stability and behaviors Sobriety Inguinal hernia, chronic Plan of Treatment: Follow up with your PCP, psychiatric provider and other outpatient providers regarding above concerns Take medications as prescribed Assessment: Risk assessment at time of discharge:? Patient was interviewed prior to discharge and found to be fully oriented and without any SI or HI. Patient has improved insight and judgment and wants to continue treatment. Patient is not in imminent risk of harm to self or others and has a safety plan that includes presenting to the closest ER or calling 911 if feeling unsafe.? Patient has been observed closely by nursing and unit staff throughout admission; patient has not engaged in any behaviors that suggest dangerousness to self or others and has demonstrated appropriate behaviors and impulse control
[2024-02-01] MEDS: Naloxone HCl Nasal TAKE HOME 4 MG SPRAY 8 MG NOSTRILALT (11:15)
== END 2024-02-01 12:13 | disposition home or self-care (01) | DRG 885 ==
LOC: HO.ED 01-23 07:11 → HO.PM5 01-24 13:03
PROVIDERS: Admitting Provider Clinical Nurse Specialist Psychiatric/Mental Health, Adult; Emergency Provider Emergency Medicine; PCP Internal Medicine; Visit Provider Psychiatry & Neurology Psychiatry
DX: F33.2 Major depressive disorder, recurrent severe without psychotic features (principal); Z59.02 Unsheltered homelessness; F11.20 Opioid dependence, uncomplicated; F43.10 Post-traumatic stress disorder, unspecified; F19.10 Other psychoactive substance abuse, uncomplicated; F17.210 Nicotine dependence, cigarettes, uncomplicated; Y90.2 Blood alcohol level of 40-59 mg/100 ml; Z71.6 Tobacco abuse counseling; F90.9 Attention-deficit hyperactivity disorder, unspecified type; F14.10 Cocaine abuse, uncomplicated; F10.90 Alcohol use, unspecified, uncomplicated; Z79.899 Other long term (current) drug therapy
CPT/HCPCS: 36415; 80053; 80061; 80143; 80179; 80307; 81001; 83036; 84443; 85025; 90656; 93005; 99285; S9485

== ENCOUNTER → 2024-01-23 08:13 | Outpatient (BNV) | payer MEDICARE, MEDICAID, SELFPAY | PROVIDERS: Emergency Provider Emergency Medicine; PCP Internal Medicine; Visit Provider Internal Medicine Cardiovascular Disease | DX: I45.81 Long QT syndrome (principal) | CPT/HCPCS: 93010 ==

== ENCOUNTER → 2024-01-24 12:33 | Outpatient (BNV) | payer MEDICARE, MEDICAID, SELFPAY | PROVIDERS: Admitting Provider Clinical Nurse Specialist Psychiatric/Mental Health, Adult; Emergency Provider Emergency Medicine; PCP Internal Medicine; Visit Provider Psychiatry & Neurology Psychiatry | DX: F33.2 Major depressive disorder, recurrent severe without psychotic features (principal); F90.9 Attention-deficit hyperactivity disorder, unspecified type; F11.90 Opioid use, unspecified, uncomplicated; F43.11 Post-traumatic stress disorder, acute | CPT/HCPCS: 90792; 99231; 99232; 99239 ==

== ENCOUNTER 2025-01-31 09:44 | Outpatient (AMB) | payer MEDICARE, MEDICAID, SELFPAY ==
--- NOTE | 2025-01-31 09:45 | MHC.OFFWIV ---
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 The patient also presents a history of right side inguinal hernia/swelling of testicles. Patient Tobacco Use Status: Current everyday Tobacco user Allergies No Known Allergies Allergy (Verified 01/31/25 09:58) Do you need a note to return to daycare/school/sports/work: No HPI HPI Comments History of Present Illness Details 49 y/o Male patient who presents to the walk in clinic with c/o swelling right testicle and right inguinal Pain for 2 months. He was evaluated by his previous PCP 2 months ago, and he was diagnosed with Right Testicular Hydrocele and right inguinal hernia. His PCP recommended Urology referral at that time but patient was moving to [place] (he used to live in [place]). Pt has not been able to establish care with New Primary Care doctor. Pt reports Pain right Inguinal region - right testicle tenderness. He has been taking Ibuprofen with minimal relief. Denies Urinary symptoms. Denies abdominal pain, nausea or vomiting. [facility] Medical History (Updated 01/31/25 @ 10:21 by Isabel Medina NP) Hydrocele, right Depression Cocaine use disorder Alcohol use disorder Post traumatic stress disorder (PTSD) Major depressive disorder, recurrent severe without psychotic features Opioid use disorder Multiple sclerosis Diabetes Social History Household Members: None Housing: Homeless Do you presently have visiting nurse or other home services: No Alcohol intake: current Alcohol intake frequency: 3 or more drinks per day Alcohol type: beer Comment: PT asking for more gum now Patient Tobacco Use Status: Current everyday Tobacco user Tobacco use type: Cigarette Cigarette Packs Per Day: 1 Cigarettes Per Day: 20.0 Years Smoked: 35 e-Cigarette/Vaping Use: Never Used Second Hand Smoke Exposure: No Substance Use Type: Crack/Cocaine and Heroin service: No Sexual orientation: Straight/Heterosexual Review of Systems Const All systems reviewed & are unremarkable except as noted in HPI and below Physical Exam Vital Signs: Last Vital Signs Temp 98.3 F 01/31/25 09:47 Pulse 95 01/31/25 09:47 BP 110/80 01/31/25 09:47 Pulse Ox 96 01/31/25 09:47 Oxygen Delivery Method Room Air 01/31/25 09:47 BMI result Body Mass Index 29.0 Const General: no acute distress Nutritional Appearance: well nourished Orientation/consciousness: patient oriented x3 GI Inspection: Yes Abdominal panniculus present Palpation (GI): Soft to palpation, not firm, nontender, no guarding, not rigid and No hepatosplenomegaly present Auscultation: normal bowel sounds Penis: normal penis and circumcised Scrotum: not erythematous, Hydrocele present on the right and scrotal swelling on the right Testes: Enlarged testicle(s) present on the right and testicular tenderness Male genitals images:  1. Presence of a smooth, soft, non-tender, fluctuant swelling confined to one side of the scrotum. The swelling transilluminates on examination, consistent with a hydrocele. The testis is palpable within/behind the fluid and the swelling does not reduce or exhibit a cough impulse. Neuro General: patient oriented x3 and gait normal Psych Speech and movement: Normal speech and movement present Assessment & Plan Assessment & Plan (1) Hydrocele, right: Code(s): N43.3 - Hydrocele, unspecified Plan: [place] [facility] [place] will need [facility] referral to Urology. Advised to go to ED if he develops severe pain, inability to urinate etc May take NSAIDs for pain relief. I was unable to palpate any swelling or lumps right groin region. Pt did have images done but does not have records. Coding Level of Care Code New Pt Level 4 (90319) Diagnoses Hydrocele, right N43.3 Time Spent (min) 20
[2025-01-31 09:47] VITALS: BP 110/80; PULSE 95; TEMP 36.8; O2SAT 96; BMI 29.0
== END 2025-01-31 10:24 | disposition home or self-care (01) ==
PROVIDERS: PCP Internal Medicine; Visit Provider Nurse Practitioner Family
DX: N43.3 Hydrocele, unspecified (principal)

== ENCOUNTER → 2025-01-31 09:44 | Outpatient (BNVA) | payer MEDICARE, MEDICAID, SELFPAY | PROVIDERS: PCP Internal Medicine; Visit Provider Nurse Practitioner Family | DX: N43.3 Hydrocele, unspecified (principal) | CPT/HCPCS: 99202 ==

== ENCOUNTER 2025-02-07 13:58 | Outpatient (AMB) | payer MEDICARE, MEDICAID, SELFPAY ==
--- NOTE | 2025-02-07 14:01 | A.OFFPC_ITS ---
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 Accompanied by: Self / Same As Patient Allergies No Known Allergies Allergy (Verified 02/07/25 14:19) Medication List - Last Reconciled 02/07/25 by Vaishali Salvador PA-C gabapentin 300 mg PO TID 30 days lisdexamfetamine 30 mg PO QAM methadone (Methadose) 100 mg PO DAILY nicotine (polacrilex) 4 mg buccal Q2H PRN 30 days venlafaxine ER 75 mg PO DAILY 30 days Tobacco use date assessed: 02/07/25 Dental Screening Dental Screen Date: 02/07/25 Did you have a dental visit in the last 12 months?: Yes Did you have a dental problem in the last 6 months where you did not have access to dental care?: No Was dental information given to patient?: Patient has dentist (pt has dentures) HPI Annual physical, New patient HPI Details The patient is a 49-year-old male presenting for an annual physical exam. An existing chart diagnosis of diabetes is noted, but the patient denies ever having this condition, and a [id number] A1c of 5.5% confirmed he is not diabetic. The patient reports a large, fluid-filled mass in the right testicle, which was previously identified as a hydrocele on an MRI and ultrasound. The hydrocele is painless but is causing social concern, prompting him to seek treatment. He complains of dysphagia to solid foods, with a sensation of food getting stuck in his chest, but has no difficulty swallowing pills. His psychiatric history is significant for ADHD, anxiety, and depression. He is currently prescribed gabapentin 300 mg three times a day, Vyvanse 30 mg, and venlafaxine 75 mg. The patient expresses dissatisfaction with his current psychiatrist, citing difficulty in getting his medications adjusted, and desires a referral for a new provider. He is also on methadone 100 mg daily. The patient has a 25 to 30-year history of smoking but quit about a month ago, which resolved his prior shortness of breath. He denies any family history of colon cancer. Social History - Tobacco Use: The patient reports a his tory of smoking for 25-30 years and quit approximately one month ago. - Substance Use: The patient reports usi ng nicotine and is on methadone 100 mg daily. - Diet: Reports drinking black coffee an d water only. [facility] Medical History (Updated 02/07/25 @ 14:48 by Vaishali Salvador PA-C) Preventative health care Anxiety Annual physical exam Food sticks on swallowing Hydrocele, right Depression Cocaine use disorder Alcohol use disorder Post traumatic stress disorder (PTSD) Major depressive disorder, recurrent severe without psychotic features Opioid use disorder Multiple sclerosis Diabetes Family History Father Emphysema lung Mother No problems noted. Social History Housing: Apartment Do you presently have visiting nurse or other home services: No Alcohol intake: current Alcohol intake frequency: does not drink Patient Tobacco Use Status: Former Tobacco user service: No Current occupational status: employed Cognitive needs: No Hearing needs: No Vision needs: No Questionnaire PHQ-9 Over the last 2 weeks, how often have you been bothered by any of the following problems? 1. Little interest or pleasure in doing things: several days 2. Feeling down, depressed, or hopeless: several days 3. Trouble falling or staying asleep, or sleeping too much: several days 4. Feeling tired or having little energy: several days 5. Poor appetite or overeating: several days 6. Feeling bad about yourself - or that you are a failure or have let yourself or your family down: several days 7. Trouble concentrating on things, such as reading the newspaper or watching television: several days 8. Moving or speaking so slowly that other people could have noticed. Or the opposite - being so fidgety or restless that you have been moving around a lot more than usual: several days 9. Thoughts that you would be better off or of hurting yourself in some way: not at all Total score: 8 Depression Screening Interpretation: Positive Depression Screening Follow-up: Existing condition and In treatment Depression Screening Done: Yes 88238 - PHQ-9 Billing: Yes Source: Developed by Drs. Violetta Ordonez, Maxime Marin and colleagues, with an educational dagoberto from [employer]. Thrive Questionnaire Date Thrive assessed: 02/07/25 I am a: Patient What is your living situation today?: I have a steady place to live Within the past 12 months, did the food you bought not last and you didn't have the money to get more?: Never true Within the past 12 months, did you worry whether your food would run out before you got money to buy more?: Never true Do you have trouble paying for medicines?: No Do you have trouble getting transportation to medical appointments?: No Do you have trouble paying your heating and electricity bill?: No Do you have trouble taking care of your child, family member or friend?: No Do you have trouble with day-to-day activities such as bathing, preparing meals, shopping, managing finances, etc.?: No Are you currently unemployed and looking for a job?: No Are you interested in more education?: No Please select the resources that you would like help with: None THRIVE Score: 0 AUDIT C Alcohol Use Questionnaire (AUDIT-C) 1. How often do you have a drink containing alcohol?: Never 3. How often do you have six or more drinks on one occasion?: Never Total Score: 0 Score Reviewed/Action Taken: No ARACELI-7 AMB Questionnaire ARACELI-7 Date ARACELI - 7 assessed: 02/07/25 Feeling nervous, anxious, or on edge: 1 = Several days Not being able to stop or control worryin = Not at all Worrying too much about different things: 0 = Not at all Trouble relaxin = Several days Being so restless that it is hard to sit still: 1 = Several days Becoming easily annoyed or irritable: 0 = Not at all Feeling afraid as if something awful might happen: 1 = Several days Total ARACELI-7 score (0-4 normal; 5-9 mild; 10-14 moderate; 15-21 severe): 4 Source: Developed by Violetta Godoy, Maxime Marin and colleagues, with an educational dagoberto from [employer]. ARACELI-7 Assessment Billing ARACELI-7 Assessment Tool: ARACELI-7 Assessment 51870 Review of Systems Const Details: - Constitutional: Denies unintentional weight loss. - HEENT: Denies problems with vision or hearing. - Cardiovascular: Denies chest pain. - Respiratory: Denies current shortness of breath. - Gastrointestinal: Reports dysphagia to solids. - Genitourinary: Reports a large right testicular mass. - Psychiatric: Reports history of anxiety, depression, and ADHD. All systems reviewed & are unremarkable except as noted in HPI and below Physical exam (Primary Care) Vital Signs: Last Vital Signs Temp 97.8 F 02/07/25 14:05 Pulse 98 02/07/25 14:05 Resp 18 02/07/25 14:05 BP 125/80 02/07/25 14:05 Pulse Ox 96 02/07/25 14:05 Oxygen Delivery Method Room Air 02/07/25 14:05 Care Plan Goal for BP management: <140/90 at Goal BMI result Body Mass Index 29.4 BMI Assessment/Plan discussion: High BMI High, discussed plan: lifestyle, weight reduction, dietary, physical activity, alcohol moderation and other Tobacco/Smoking Status: Tobacco use Status Tobacco use date assessed 02/07/25 02/07/25 14:17 Patient Tobacco Use Status Former Tobacco user 02/07/25 14:17 Tobacco use type 02/07/25 14:17 e-Cigarette/Vaping Use 02/07/25 14:17 PHQ-9: PHQ-9 Score PHQ-9: Total score 8 02/07/25 14:20 Depression Screening Interpretation: Positive Depression Screening Follow-up: Existing condition and In treatment Thrive Assessment: Date of Thrive Assessment Date Thrive assessed 02/07/25 02/07/25 14:17 Const Other: Appearance: Alert. Oriented X3. No acute distress. Head: Normal external exam. Normocephalic. Atraumatic. Eyes: Pupils are equal, round, and reactive to light. Extraocular movements intact. Conjunctiva and sclera normal. Eyelids normal. Ears: External auditory canal normal. Tympanic membranes normal. Throat: Pharynx normal. Uvula midline. Moist mucous membranes. Neck: Normal inspection. Neck supple. Full range of motion. No adenopathy. Thyroid Normal. No meningeal signs. No neck mass noted. Cardiovascular: Heart rate slightly elevated. Heart sound normal. No murmurs noted. Pulses normal throughout. Respiratory: No respiratory distress. Painless inspiration. Breath sounds normal. No wheezes/rales/rhonchi noted. Chest nontender. No accessory muscle usage noted or decreased air movement noted. Abdomen: Soft and nontender. Bowel sounds normal in all 4 quadrants. No distention noted. No organomegaly noted. No visible injury noted. : Large hydrocele noted to right testicle. Back: No costovertebral angle tenderness. Full range of motion noted. Skin: Skin warm and dry. Normal skin color. Normal skin turgor. No rashes/lesions/lacerations noted. Extremities: No lower extremity edema. Extremities exhibit normal range of motion. Neuro: Oriented X 3. No motor deficit. No sensory deficit. Reflexes normal. Results AMB Hemoglobin A1c AMB Hemoglobin A1c 5.5 % Last Edit by JONNY Mera on 02/07/25 14:33 Results Reviewed Results Reviewed: - Labs: Chfiz-ln-mdom HbA1c was 5.5%. - Imaging: Patient reports a prior MRI showed the scrotal mass was full of fluid and a prior ultrasound confirmed a hydrocele. Coding Level of Care Code New Pt Level 4 (23330) New Pt Prev Care 40-64y(79241) Diagnoses Annual physical exam Z00.00 Hydrocele, right N43.3 Food sticks on swallowing R13.10 Major depressive disorder, recurrent severe without psychotic features F33.2 Post traumatic stress disorder (PTSD) F43.10 ADHD (attention deficit hyperactivity disorder) F90.9 Anxiety F41.9 Preventative health care Z00.00 Additional Codes PHQ-9 - 46118 - PHQ-9 Billing: Yes ([id number]) ARACELI-7 Assessment Billing - ARACELI-7 Assessment Tool: ARACELI-7 Assessment 36586 ([id number]) Time Spent (min) 60 Assessment & Plan Assessment & Plan (1) Annual physical exam: Code(s): Z00.00 - Encounter for general adult medical examination without abnormal findings Category: Medical (2) Hydrocele, right: Code(s): N43.3 - Hydrocele, unspecified Category: Medical Plan: An urgent referral to urology will be placed for evaluation and management of the large right hydrocele, which may involve drainage or surgical intervention. (3) Food sticks on swallowing: Code(s): R13.10 - Dysphagia, unspecified Category: Medical Plan: To investigate the patient's complaint of food getting stuck in his chest, a barium swallow study will be ordered to assess for potential esophageal stricture or motility issues. (4) Major depressive disorder, recurrent severe without psychotic features: Code(s): F33.2 - Major depressive disorder, recurrent severe without psychotic features Category: Medical Plan: The patient's methadone dosage was corrected to 100 mg daily in his chart. A referral will be made to a new psychiatrist and counselor for management of his ADHD, anxiety, and depression, as he is dissatisfied with his current provider. (5) Post traumatic stress disorder (PTSD): Code(s): F43.10 - Post-traumatic stress disorder, unspecified Category: Medical Plan: The patient's methadone dosage was corrected to 100 mg daily in his chart. A referral will be made to a new psychiatrist and counselor for management of his ADHD, anxiety, and depression, as he is dissatisfied with his current provider. (6) ADHD (attention deficit hyperactivity disorder): Code(s): F90.9 - Attention-deficit hyperactivity disorder, unspecified type Category: Medical Plan: The patient's methadone dosage was corrected to 100 mg daily in his chart. A referral will be made to a new psychiatrist and counselor for management of his ADHD, anxiety, and depression, as he is dissatisfied with his current provider. (7) Anxiety: Code(s): F41.9 - Anxiety disorder, unspecified Category: Medical Plan: The patient's methadone dosage was corrected to 100 mg daily in his chart. A referral will be made to a new psychiatrist and counselor for management of his ADHD, anxiety, and depression, as he is dissatisfied with his current provider. (8) Preventative health care: Code(s): Z00.00 - Encounter for general adult medical examination without abnormal findings Category: Medical Plan: Outpatient labs will be ordered, including a CBC, CMP, cholesterol panel, liver function tests, PSA, thyroid panel, vitamin B12, and magnesium; the patient was instructed to fast for 8-10 hours prior to the blood draw. A urinalysis will be ordered to check for protein, blood, or glucose. A Cologuard test will be sent to the patient's home for colon cancer screening. A referral will be placed for lung cancer screening due to his extensive smoking history. The erroneous diagnosis of diabetes will be removed from the patient's medical history. A follow-up appointment is scheduled in two months. Plan Plan Patient was informed and verbally consented to the use of an ambient scribe for clinic note documentation during this visit. 1. Right Hydrocele An urgent referral to urology will be placed for evaluation and management of the large right hydrocele, which may involve drainage or surgical intervention. 2. Dysphagia To investigate the patient's complaint of food getting stuck in his chest, a barium swallow study will be ordered to assess for potential esophageal stricture or motility issues. 3. Mental Health (Adhd, Anxiety, Depression) The patient's methadone dosage was corrected to 100 mg daily in his chart. A referral will be made to a new psychiatrist and counselor for management of his ADHD, anxiety, and depression, as he is dissatisfied with his current provider. 4. Preventative Care Outpatient labs will be ordered, including a CBC, CMP, cholesterol panel, liver function tests, PSA, thyroid panel, vitamin B12, and magnesium; the patient was instructed to fast for 8-10 hours prior to the blood draw. A urinalysis will be ordered to check for protein, blood, or glucose. A Cologuard test will be sent to the patient's home for colon cancer screening. A referral will be placed for lung cancer screening due to his extensive smoking history. The erroneous diagnosis of diabetes will be removed from the patient's medical history. A follow-up appointment is scheduled in two months. I informed the patient that his A1c level is normal and will remove the diagnosis of diabetes from his chart. We discussed the plan for his annual wellness visit, including ordering fasting lab work and a urinalysis. I explained the large swelling in his testicle is a hydrocele and that I would place an urgent referral to urology for management. Regarding his difficulty swallowing, I recommended a barium swallow study to investigate the cause. I acknowledged his desire for a new psychiatrist to manage his medications and will place referrals for both a psychiatrist and a counselor. For colon cancer screening, I recommended a Cologuard test, explaining it is a non-invasive op tion and that a positive result would require a follow-up colonoscopy. Due to his significant smoking history, I also recommended and will place a referral for lung cancer screening. I advised him that the referral departments would contact him to schedule these appointments. We agreed to a follow-up visit in two months. Orders: Orders Comprehensive [place]. Panel Fast Today Z00.00 - Encounter for general adult medical examination without abnormal findings Lipid Panel Today Z00.00 - Encounter for general adult medical examination without abnormal findings Vitamin D 25-OH Total Today Z00.00 - Encounter for general adult medical exam ination without abnormal findings TSH reflex Free T4 Today Z00.00 - Encounter for general adult medical examination without abnormal findings Erythrocyte Sedimentation Rate Today Z00.00 - Encounter for general adult medical examination without abnormal findings FL barium enema Today R13.10 - Dysphagia, unspecified CDiff Gene PCR Today R10.9 - Unspecified abdominal pain Complete Blood Count Auto Diff Today Z00.00 - Encounter for general adult medical examination without abnormal findings Liver Panel Today Z00.00 - Encounter for general adult medical examination without abnormal findings Magnesium Today Z00.00 - Encounter for general adult medical examination without abnormal findings Vitamin B12 and Folate Today Z00.00 - Encounter for general adult medical examination without abnormal findings UA CC w/rflx Micro + Cult Today Z00.00 - Encounter for general adult medical examination without abnormal findings PSA,Total (Free>4and<10) Today Z00.00 - Encounter for general adult medical examination without abnormal findings AMB Hemoglobin A1c Today Z13.9 - Encounter for screening, unspecified Referrals Counseling Referral F10.90 - Alcohol use, unspecified, uncomplicated, F11.99 - Opioid use, unspecified with unspecified opioid-induced disorder, F14.10 - Cocaine abuse, uncomplicated, F33.2 - Major depressive disorder, recurrent severe without psychotic features, F41.9 - Anxiety disorder, unspecified, F43.10 - Post-traumatic stress disorder, unspecified, F90.9 - Attention-deficit hyperactivity disorder, unspecified type Urology Referral N43.3 - Hydrocele, unspecified Cologuard Test Z12.11 - Encounter for screening for malignant neoplasm of colon, Z12.12 - Encounter for screening for malignant neoplasm of rectum Psychiatry Referral F10.90 - Alcohol use, unspecified, uncomplicated, F11.99 - Opioid use, unspecified with unspecified opioid-induced disorder, F14.10 - Cocaine abuse, uncomplicated, F32.A - Depression, unspecified, F33.2 - Major depressive disorder, recurrent severe without psychotic features, F43.10 - Post- traumatic stress disorder, unspecified, F90.9 - Attention-deficit hyperactivity disorder, unspecified type Patient Instructions: - Please go to a lab to have your blood work done. - Do not eat or drink anything except for water or black coffee for 8-10 hours before your blood test. - You will be contacted by several offices to schedule appointments: Urology (for the swelling), a new psychiatrist, a counselor, a barium swallow study (for your swallowing issue), and a lung cancer screening. - The Urology appointment is urgent, so you should expect their call soon. - A Cologuard kit for colon cancer screening will be mailed to your house. - Please follow the instructions in the kit to collect a sample and mail it back. - Your in-office blood sugar test was normal, so the diagnosis of diabetes will be removed from your record. - Please schedule a follow-up appointment in two months. - Make sure to provide the front sight attacher with your current phone number.
[2025-02-07 14:05] VITALS: BP 125/80; PULSE 98; RESP 18; TEMP 36.6; O2SAT 96; BMI 29.4
== END 2025-02-07 14:43 | disposition home or self-care (01) ==
PROVIDERS: PCP Physician Assistant Medical; Visit Provider Physician Assistant Medical
DX: Z00.00 Encounter for general adult medical examination without abnormal findings (principal); N43.3 Hydrocele, unspecified; F33.2 Major depressive disorder, recurrent severe without psychotic features; R13.10 Dysphagia, unspecified; F43.10 Post-traumatic stress disorder, unspecified; F90.9 Attention-deficit hyperactivity disorder, unspecified type; F41.9 Anxiety disorder, unspecified; Z13.9 Encounter for screening, unspecified

== ENCOUNTER → 2025-02-07 13:58 | Outpatient (BNVA) | payer MEDICARE, MEDICAID, SELFPAY | PROVIDERS: PCP Physician Assistant Medical; Visit Provider Physician Assistant Medical | DX: Z00.00 Encounter for general adult medical examination without abnormal findings (principal); N43.3 Hydrocele, unspecified; R13.10 Dysphagia, unspecified; F33.2 Major depressive disorder, recurrent severe without psychotic features; F43.10 Post-traumatic stress disorder, unspecified; F41.9 Anxiety disorder, unspecified; Z13.31 Encounter for screening for depression; Z13.39 Encounter for screening examination for other mental health and behavioral disorders; Z13.1 Encounter for screening for diabetes mellitus; F14.10 Cocaine abuse, uncomplicated; F90.9 Attention-deficit hyperactivity disorder, unspecified type | CPT/HCPCS: 83036; 96127; 99202; 99386 ==